=== PATIENT | male | born 1960 | race African-American/Black ===

== ENCOUNTER 2017-01-31 06:11 | Inpatient (IN) | payer OTHER ==
[~2017-01-31] VITALS: Ht 172.7 cm; Wt 68.9 kg
[~2017-01-31 06:11] MED LIST: DEXA4TAB PO; FOLI1TAB6 PO; MEGE40SU PO; TRAM50TA PO; XARE20TA PO
[2017-01-31] MEDS ORDERED: SODIUM CHLORID 0.9% 500 ML IV PRN (06:45)
[2017-01-31] MEDS ORDERED: POVIDONE IODINE 5% (ANTISEPSIS KIT) 4 APPLICATIONS EACH NARE PRN (06:45)
[2017-01-31] MEDS ORDERED: CHLORHEXIDINE GLUCONATE 2 % 1 PACK (2 CLOTHS) TOPICAL PRN (06:45)
[2017-01-31] MEDS ORDERED: INSULIN HUMAN REGULAR 1,000 UNITS/10 ML VIAL SQ PRN (06:45)
[2017-01-31] MEDS ORDERED: LACTATED RINGER'S 1000 ML IV PRN (06:45)
[2017-01-31] MEDS ORDERED: LACTATED RINGER'S 1000 ML INJ 1,000 ML IV SCH (06:45)
[2017-01-31] MEDS ORDERED: METOPROLOL TARTRATE 25 MG TAB PO PRN (06:45)
--- NOTE | 2017-01-31 07:16 | RADRPT ---
EXAM DATE/TIME: 01/31/2017 06:46 [facility] COMPARISON: No previous studies available for comparison. INDICATIONS : Evaluate for pneumonia, pneumothorax, or communicable disease. Pre op for left craniotomy. MEDICAL HISTORY : Carcinoma, lung. Carcinoma, brain. SURGICAL HISTORY : Infusaport. ENCOUNTER: Initial ACUITY: 1 day PAIN SCORE: 0/10 LOCATION: chest FINDINGS: A single view of the chest demonstrates a prominent area of parenchymal consolidation/mass in the rig ht upper lung.. The right lower lung is clear. The left lung is clear. There are no pleural effusions . The heart size is within normal limits. The hilar structures are within normal limits. There is a l eft-sided [id number]-n-Rduw in place. There is no evidence of pneumothorax. The bony structures are gross ly intact. There are no prior studies for comparison. CONCLUSION: Prominent area of parenchymal consolidation/mass in the right upper lung. Recommend noncontrast CT th orax for further evaluation. Kamran Downey MD on January 31, 2017 at 7:12 Board Certified Radiologist. This report was verified electronically.
[2017-01-31 07:22] LABS: AUTOMATED NEUTROPHIL # 19.6 TH/MM3 (1.8-7.7); BASOPHIL # 0.1 TH/MM3 (0-0.2); BASOPHIL % 0.5 % (0.0-2.0); EOSINOPHIL % 0.1 % (0.0-4.0); HEMATOCRIT 31.7 % (39.0-51.0); LYMPH % 4.4 % (9.0-44.0); MEAN CELL VOLUME 100.8 FL (80.0-100.0); MEAN CORPUSCULAR HEMOGLOBIN 33.1 PG (27.0-34.0); MEAN CORPUSCULAR HGB CONC 32.9 % (32.0-36.0); MONO % 6.8 % (0.0-8.0); NEUT % 88.2 % (16.0-70.0); PLATELET COUNT 243 TH/MM3 (150-450); RED BLOOD COUNT 3.15 MIL/MM3 (4.50-5.90); RED CELL DISTRIBUTION WIDTH 25.1 % (11.6-17.2); WHITE BLOOD COUNT 22.2 TH/MM3 (4.0-11.0)
[2017-01-31 07:25] LABS: HEMO FLAGS AUTO DIFF
[2017-01-31 07:33] LABS: APTT (PATIENT) 25.5 SEC (24.3-30.1)
[2017-01-31] MEDS ORDERED: THROMBIN (TOPICAL) 5,000 UNIT VIAL ONE ×2 (07:35→11:23)
[2017-01-31 07:36] LABS: ALT (GPT) 31 U/L (12-78); ANION GAP 9 MEQ/L (5-15); AST (GOT) 12 U/L (15-37); BICARBONATE 22.6 MEQ/L (21.0-32.0); BLOOD UREA NITROGEN 15 MG/DL (7-18); CHLORIDE 105 MEQ/L (98-107); GLOMERULAR FILTRATION RATE 134 ML/MIN (>89); POTASSIUM 3.6 MEQ/L (3.5-5.1); SODIUM (NA) 137 MEQ/L (136-145)
[2017-01-31] MEDS ORDERED: GELFOAM SIZE 100 ONE (07:36)
[2017-01-31] MEDS ORDERED: LIDOCAINE 1%/EPINEPHrine 1:100,000 SOLN 50 ML VIAL ONE (07:36)
[2017-01-31] MEDS ORDERED: GENTAMICIN SULFATE 80 MG/2 ML VIAL ONE (07:36)
[2017-01-31 07:38] LABS: ALKALINE PHOSPHATASE 60 U/L (45-117); TOTAL BILIRUBIN ADULT 0.2 MG/DL (0.2-1.0)
[2017-01-31 08:00] LABS: METAMYELOCYTES 2 % (0-1); MYELOCYTES 1 % (0-0); PLATELET ESTIMATE SMEAR NORMAL (NORMAL); PLATELET MORPHOLOGY NORMAL (NORMAL); POLYS (SEG NEUTROPHILS) 87 % (16-70); SCAN/DIFF FINAL DIFF MANUAL; WBC DIFF SAMPLE 100
[2017-01-31 08:01] LABS: OVALOCYTES 1+ (NORMAL); TEARDROP RBCS 1+ (NORMAL)
[2017-01-31] MEDS ORDERED: ACETAMINOPHEN 1000 MG/100 ML 100 ML IV ONE (08:36)
[2017-01-31] MEDS ORDERED: NITROGLYCERIN INJ 5 ML ONE (08:36)
[2017-01-31] MEDS ORDERED: HYDROmorphone HCL PF 2 MG/ML VIAL ONE (08:37)
[2017-01-31] MEDS ORDERED: GADODIAMIDE PF 287 MG/ML 5 ML VIAL (for RAD MRI) IVCONTRAST ONE (09:29)
[2017-01-31] MEDS: ceFAZolin 1,000 MG/NS 100 ML IV SCH ×4 (09:30→13:25)
--- NOTE | 2017-01-31 09:33 | RADRPT ---
EXAM DATE/TIME: 01/31/2017 08:31 [facility] COMPARISON: No previous studies available for comparison. INDICATIONS : Mass. CONTRAST: 15 cc Omniscan (gadodiamide) IV MEDICAL HISTORY : Metastatic, brain. Carcinoma, lung. SURGICAL HISTORY : None. ENCOUNTER: Initial ACUITY: 2 day PAIN SCORE: 0/10 LOCATION: head. TECHNIQUE: Multiplanar, multisequence MRI of the brain was performed both prior to and following the administrat ion of paramagnetic contrast. FINDINGS: Problem specific findings: The examination demonstrates a 2.1 x 3.2 x 3.0 cm ring enhancing mass in the left temporal cortex. Th ere is extensive vasogenic edema surrounding the lesion with mild mass effect. There is approximately 3-4 mm of left to right falcine shift. The examination also demonstrates a 1.0 x 1.1 x 1.2 cm mass i n the medial aspect of the right temporal cortex abutting the sylvian fissure. There is mild vasogeni c edema surrounding this lesion as well. There is no significant mass effect. Primary differential co nsideration for these abnormalities would be metastatic disease. MRI source data: There is mild mass effect on the lateral ventricular system on the left. There is 3-4 mm of left righ t falcine shift. No abnormal extra-axial fluid collections are seen. No findings to indicate acute co rtical infarction are present. The appearance of the posterior fossa is unremarkable. Note is made of fluid within the mastoid air cells bilaterally. The sinuses are clear. The orbits are intact. CONCLUSION: 1. There is a 2.1 x 3.2 x 3.0 cm enhancing mass in the left temporal lobe. There is extensive surroun ding vasogenic edema and mild mass effect. 2. There is a 1.0 x 1.1 x 1.2 cm enhancing mass in the medial right temporal lobe. There is mild luis a surrounding this lesion as well. 3. Findings would be consistent with metastatic disease to the brain. Lb Ta MD on January 31, 2017 at 9:25 Board Certified Radiologist. This report was verified electronically.
[2017-01-31] MEDS ORDERED: MIDAZOLAM HCL 2 MG/2 ML VIAL IV ONE (12:00)
[2017-01-31] MEDS ORDERED: SODIUM CHLOR 0.9% 250 ML INJ 250 ML IV ONE (12:00)
[2017-01-31] MEDS ORDERED: ONDANSETRON HCL 4 MG/2 ML VIAL IV PUSH ONE (12:00)
[2017-01-31] MEDS ORDERED: DEXAMETHASONE SOD PHOS 4 MG/ML VIAL IV ONE (12:00)
[2017-01-31] MEDS ORDERED: PROPOFOL 200 MG/20 ML AMP IV ONE (12:00)
[2017-01-31] MEDS ORDERED: ceFAZolin INJ 1,000 MG VIAL IV ONE (12:00)
[2017-01-31] MEDS ORDERED: SODIUM CHLORID 0.9% 500 ML INJ 500 ML IV ONE (12:00)
[2017-01-31] MEDS ORDERED: PHENYLEPH/NS 1000 MCG/10 ML SYR IV ONE (12:00)
[2017-01-31] MEDS ORDERED: PHENYLEPHRINE HCL 10 MG/ML VIAL IV ONE (12:00)
[2017-01-31] MEDS ORDERED: GLYCOPYRROLATE 1 MG/5 ML SYRINGE IV PUSH ONE (12:00)
[2017-01-31] MEDS ORDERED: LIDOCAINE HCL 1% PF 5 ML AMPULE OTHER ONE (12:00)
[2017-01-31] MEDS ORDERED: hydrALAZINE HCL 20 MG/ML VIAL IV ONE (12:00)
[2017-01-31] MEDS ORDERED: NORMOSOL R INJ 1,000 ML IV ONE (12:00)
[2017-01-31] MEDS ORDERED: ROCURONIUM INJ 50 MG/5 ML SYRINGE IV PUSH ONE (12:00)
[2017-01-31] MEDS ORDERED: DO NOT ADM ANY ANTICOAGULANT DRUGS PRN (13:59)
--- NOTE | 2017-01-31 14:04 | EKG ---
Date Performed: 01/31/2017 Time Performed: 07:06:51 PTAGE: 56 years EKG: SINUS BRADYCARDIA BORDERLINE ECG NO PREVIOUS TRACING DOCTOR: Kalyan Guardado Interpretating Date/Time 01/31/2017 14:01:02
--- NOTE | 2017-01-31 14:14 | PD.OP ---
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 Anesthesia: Gen. Surgeon: Alex Wu Band Scroll Saw Operator(s): Bernie Gerber Operation and Findings: Findings: Moderately firm nonhemorrhagic, noncystic neoplasm with moderate surrounding edema. Procedure in detail: The patient was brought into the operating room and general endotracheal anesthesia induced without difficulty. Lines were established by anesthesia MARY hose and sequential compression devices were in place Monique catheter was in place Appropriate timeout procedure was performed with all personal present and in agreement The patient was positioned in supine position on the 3080 table with all extremities appropriately padded. The head was placed in the 3-point fixation device and secured to the operating room table with the neck slightly flexed and the head mildly rotated towards the right side. The BrainLab system was registered with the laser facial registration system and landmarks verified. The BrainLab system was used to valentin the initial scalp flap and craniotomy opening, and was further used extensively during the procedure to guide the resection of the neoplasm. The hair overlying the scalp incision was shaved with clippers, and the operative site was sterilely prepped and draped. 1% Xylocaine with epinephrine was used for local infiltration over the incision site which was made at the left temporal region starting at the level of the zygoma and extending in front of the tragus up to the mid temporal region in a linear fashion. Dissection of the tissues down to the cranium was carried out with the Metzenbaum scissors and all major neurovascular structures were preserved. A small deep self-retaining retractor was placed. The syrup mixer helper was used to place a bur hole, and the bone flap was enlarged with a Kerrison rongeur The dura was opened in a cruciate fashion and the edges retracted with 4-0 Nurolon suture. There was mild brain edema noted upon opening the dura. The JINA port was used along with the BrainLab stereotactic system to target the central portion of the neoplasm, and the port was advanced to the anterior wall of the neoplasm. The neoplasm was circumferentially from the surrounding tissue with the Boron dissectors and the bipolar forceps with any bridging vessels coagulated with the bipolar forceps and incised with the microscissors. Any major vascular structures were carefully preserved. The JINA dissector was used to assist with the resection of the neoplasm, including any areas of residual neoplasm along the border of the tumor bed. Cottonoid patties were used as needed to maintain the resection plane surrounding the tumor. As the border of the neoplasm was circumferentially delineated, the central portion was further debulk with the JINA dissector. A gross total resection of the lesion was achieved. The tumor resection site was carefully examined and bleeding carefully controlled. There was no significant bleeding at the time of closure. The brain was soft and pulsatile at the time of closure The closure was performed with 4-0 Nurolon interrupted and running for the dura , with Duraseal and gelfoam over the craniectomy site, 2-0 Vicryl for the temporalis muscle fascia and galeal closure, And omid for the skin closure. A dressing of sterile Mastisol and Steri-Strips was placed The 3-point head fixation device was removed The patient was taken to recovery room in stable condition All counts were correct at the end of the case Estimated blood loss was 50 cc. Specimen of the neoplasm was sent to pathology for permanent section Alex Wu MD Jan 31, 2017 14:14
[2017-01-31] MEDS ORDERED: NALOXONE HCL 0.4 MG/ML AMP IV PUSH PRN (14:15)
[2017-01-31] MEDS ORDERED: HYDROmorphone HCL PF 1 MG/ML VIAL IV PUSH PRN (14:15)
[2017-01-31] MEDS ORDERED: ONDANSETRON HCL 4 MG/2 ML VIAL IV PUSH PRN (14:15)
[2017-01-31] MEDS ORDERED: ACETAMINOPHEN/HYDROcodone 325 MG/5 MG TAB PO PRN (14:15)
[2017-01-31] MEDS ORDERED: SODIUM CHLORIDE 0.9% FLUSH 5 ML FLUSH IVF PRN (14:15)
[2017-01-31] MEDS ORDERED: MORPHINE SULFATE 4 MG/ML INJ IV PUSH PRN (14:15)
[2017-01-31] MEDS: D5-NS + KCL 20 MEQ INJ 1,000 ML IV SCH (14:55)
[2017-01-31 16:00] VITALS: BP 118/71; PULSE 60; RESP 24; TEMP 98.2; O2SAT 100
[2017-01-31 18:00] VITALS: PULSE 63
[2017-01-31] MEDS: DEXAMETHASONE 4 MG TAB PO SCH ×2 (18:00→20:55)
[2017-01-31] MEDS: ACETAMINOPHEN/HYDROcodone 325 MG/10 MG TAB PO PRN (19:56)
[2017-01-31 20:00] VITALS: BP 156/82; PULSE 56; RESP 10; TEMP 98.7; O2SAT 100
[2017-01-31 20:30] VITALS: O2SAT 100
[2017-01-31] MEDS: DOCUSATE SODIUM 100 MG CAP PO SCH (20:55)
[2017-01-31] MEDS: SODIUM CHLORIDE 0.9% FLUSH 5 ML FLUSH IVF SCH (20:59)
[2017-01-31 22:00] VITALS: PULSE 56
[2017-02-01] VITALS (14 sets, daily range): BP systolic 127–140; BP diastolic 69–82; PULSE 58–83; RESP 16–28; TEMP 98.4–99.1; O2SAT 99–100
[2017-02-01] MEDS: D5-NS + KCL 20 MEQ INJ 1,000 ML IV SCH ×3 (00:14→20:15)
[2017-02-01 05:10] LABS: AUTOMATED NEUTROPHIL # 20.1 TH/MM3 (1.8-7.7); BASOPHIL % 0.1 % (0.0-2.0); HEMATOCRIT 30.6 % (39.0-51.0); LYMPH % 4.3 % (9.0-44.0); MEAN CELL VOLUME 100.8 FL (80.0-100.0); MEAN CORPUSCULAR HEMOGLOBIN 33.8 PG (27.0-34.0); MEAN CORPUSCULAR HGB CONC 33.6 % (32.0-36.0); MONO % 9.6 % (0.0-8.0); PLATELET COUNT 207 TH/MM3 (150-450); RED BLOOD COUNT 3.03 MIL/MM3 (4.50-5.90); RED CELL DISTRIBUTION WIDTH 25.6 % (11.6-17.2); WHITE BLOOD COUNT 23.4 TH/MM3 (4.0-11.0)
[2017-02-01 05:16] LABS: APTT (PATIENT) 26.9 SEC (24.3-30.1); PROTHROMBIN TIME - PATIENT 11.1 SEC (9.8-11.6)
[2017-02-01 05:25] LABS: HEMO FLAGS AUTO DIFF
[2017-02-01 05:31] LABS: BICARBONATE 23.5 MEQ/L (21.0-32.0); POTASSIUM 3.9 MEQ/L (3.5-5.1)
--- NOTE | 2017-02-01 05:51 | RADRPT ---
EXAM DATE/TIME: 02/01/2017 05:35 [facility] COMPARISON: MRI BRAIN W & W/O CONTRAST, January 31, 2017, 8:31. INDICATIONS : Post op. RADIATION DOSE: 32.99 CTDIvol (mGy) MEDICAL HISTORY : Lung cancer. Brain cancer. SURGICAL HISTORY : None. ENCOUNTER: Subsequent ACUITY: 1 day PAIN SCALE: Non-responsive LOCATION: cranial TECHNIQUE: Multiple contiguous axial images were obtained of the head. Using automated exposure control and adj ustment of the mA and/or kV according to patient size, radiation dose was kept as low as reasonably a chievable to obtain optimal diagnostic quality images. DICOM format image data is available electro nically for review and comparison. FINDINGS: CEREBRUM: There's been a left-sided craniotomy with some residual pneumocephalus. There is significant vasogeni c edema in left temporal lobe without evidence of residual mass lesion or hemorrhage. There is a 9 mm area of hemorrhage in the posterior right temporal lobe. No other focal lesions are identified POSTERIOR FOSSA: The cerebellum and brainstem are intact. The 4th ventricle is midline. The cerebellopontine angle i s unremarkable. EXTRACRANIAL: The visualized portion of the orbits is intact. SKULL: The calvaria is intact. No evidence of skull fracture. Fluid in the mastoid air cells CONCLUSION: Postoperative change the left temporal lobe left temporal craniotomy. Significant residual vasogenic edema and small amount of pneumocephalus. Small area of hemorrhage in the right posterior temporal lo be. Rick Rojas MD on February 01, 2017 at 5:47 Board Certified Radiologist. This report was verified electronically.
[2017-02-01 07:14] LABS: ACANTHOCYTES OCC (NORMAL); OVALOCYTES 1+ (NORMAL); PLATELET ESTIMATE SMEAR NORMAL (NORMAL); PLATELET MORPHOLOGY NORMAL (NORMAL); SCAN/DIFF AUTO DIFF CONFIRMED
[2017-02-01] MEDS: DEXAMETHASONE 4 MG TAB PO SCH ×5 (07:27→20:36)
[2017-02-01] MEDS: PANTOPRAZOLE SOD 40 MG DELAYED RELEASE TAB PO SCH (07:27)
[2017-02-01] MEDS: SODIUM CHLORIDE 0.9% FLUSH 5 ML FLUSH IVF SCH ×2 (07:27→20:14)
[2017-02-01] MEDS: DOCUSATE SODIUM 100 MG CAP PO SCH ×2 (07:27→20:15)
[2017-02-01] MEDS: ACETAMINOPHEN/HYDROcodone 325 MG/10 MG TAB PO PRN ×2 (07:27→18:13)
[2017-02-01] MEDS: FOLIC ACID 1 MG TAB PO SCH (07:27)
[2017-02-01] MEDS: MEGESTROL ACETATE SUSP 400 MG/10 ML CUP PO SCH (09:00)
--- NOTE | 2017-02-01 09:04 | HHI.NSPN ---
(Ming Rahman) History Chief Complaint: Unable to obtain due to patient's speech difficulty. (Ming Rahman) Interval History 01/31: The patient presented to [facility] to undergo a left temporal craniectomy for resection of a metastatic neoplasm. Post-operatively he was extubated and admitted to the [facility] unit for further care and monitoring. 02/01: When seen this morning the patient is asleep but awakens to voice. He readily interacts after that but has difficulty constructing sentences and finding words. He does not remember that he had surgery yesterday. Nursing reports that he is tolerating clear liquids. (Ming Rahman) System Review Comments Unable to obtain due to patient's speech difficulty. (Ming Rahman) Exam Results 01/30/17 01/30/17 01/31/17 01/31/17 02/01/17 02/01/17 05:59 17:59 05:59 17:59 05:59 17:59 Intake Total 2450 ml 1000 ml Output Total 1750 ml 700 ml 1750 ml Balance 700 ml 300 ml -1750 ml Intake IV Total 50 ml 1000 ml Other 2400 ml Output Urine Total 1700 ml 700 ml 1750 ml Estimated Blood Loss 50 ml # Bowel Movements 0 Vital Signs Date Time Temp Pulse Resp B/P (MAP) Pulse Ox O2 Delivery O2 Flow Rate FiO2 02/01/17 08:00 99.0 68 24 140/70 (93) 100 02/01/17 08:00 68 02/01/17 07:00 100 Room Air 02/01/17 06:00 67 02/01/17 04:00 99.1 60 16 129/69 (89) 99 02/01/17 04:00 60 02/01/17 02:00 60 02/01/17 00:00 98.6 58 17 136/72 (93) 100 02/01/17 00:00 58 01/31/17 22:00 56 01/31/17 20:30 100 21 01/31/17 20:00 98.7 56 10 156/82 (106) 100 Arterial Line 01/31/17 20:00 56 01/31/17 19:00 100 Room Air 01/31/17 18:00 63 01/31/17 16:00 98.2 60 24 118/71 (87) 100 01/31/17 16:00 60 01/31/17 15:15 60 12 126/71 (89) 100 Room Air 01/31/17 14:45 98.4 63 12 116/63 (80) 100 Room Air 01/31/17 14:30 62 14 128/74 (92) 100 Room Air 145/70 (95) 01/31/17 14:15 62 12 130/76 (94) 100 Simple Mask 6 151/71 (97) 01/31/17 14:00 61 12 134/81 (98) 100 Simple Mask 6 152/73 (99) 01/31/17 13:51 97.8 60 14 139/86 (103) 100 Simple Mask 6 155/76 (102) 01/31/17 06:54 97.9 58 20 122/81 (95) 100 (Ming Rahman) Physical Examination GENERAL: Asleep but awakens to voice, awake after that and readily interacts. Affect appears normal. No apparent distress. SKIN: Warm & dry, surgical incision left temporal lobe intact w/steri-strips, no drainage noted, mild swelling to area. HEENT: Left temporal lobe surgical incision w/mild swelling, NTTP. PERRLA, EOMI. MMM & pink, tongue midline to protrusion. MUSCULOSKELETAL: NANCE w/o difficulty, no evident deformity or clubbin. NEUROLOGICAL: Asleep but awakens to voice, awake & alert after that. Oriented to self and being in hospital but not which one, disoriented to time. Does not remember he had surgery yesterday. Speech essentially clear, has difficulty finding words and constructing sentences. Follows commands with difficulty, requires instruction and coaxing. CN II through XII appear grossly intact except for CN VIII w/decreased hearing. Sensation to light touch intact to all extremities. Motor strength is 5/5 to all major flexion & extension muscle groups. Fine motor not tested. No Bryan's bilaterally. No ankle clonus bilaterally. Both feet move upward with plantar response testing. (Ming Rahman) Lab, Micro, Other Results Recent Impressions Head CT 02/01/17 0600 Signed Impressions: Service Date/Time: Wednesday, February 01, 2017 05:35 - CONCLUSION: Postoperative change the left temporal lobe left temporal craniotomy. Significant residual vasogenic edema and small amount of pneumocephalus. Small area of hemorrhage in the right posterior temporal lobe. Rick Rojas MD Chest X-Ray 01/31/17 0628 Signed Impressions: Service Date/Time: Tuesday, January 31, 2017 06:46 - CONCLUSION: Prominent area of parenchymal consolidation/mass in the right upper lung. Recommend noncontrast CT thorax for further evaluation. Kamran Downey MD Brain MRI 01/31/17 0000 Signed Impressions: Service Date/Time: Tuesday, January 31, 2017 08:31 - CONCLUSION: 1. There is a 2.1 x 3.2 x 3.0 cm enhancing mass in the left temporal lobe. There is extensive surrounding vasogenic edema and mild mass effect. 2. There is a 1.0 x 1.1 x 1.2 cm enhancing mass in the medial right temporal lobe. There is mild edema surrounding this lesion as well. 3. Findings would be consistent with metastatic disease to the brain. Lb Ta MD Laboratory Tests Test 01/31/17 06:58 01/31/17 15:55 02/01/17 04:10 White Blood Count 22.2 TH/MM3 23.4 TH/MM3 Red Blood Count 3.15 MIL/MM3 3.03 MIL/MM3 Hemoglobin 10.4 GM/DL 10.3 GM/DL Hematocrit 31.7 % 30.6 % Mean Corpuscular Volume 100.8 FL 100.8 FL Mean Corpuscular Hemoglobin 33.1 PG 33.8 PG Mean Corpuscular Hemoglobin Concent 32.9 % 33.6 % Red Cell Distribution Width 25.1 % 25.6 % Platelet Count 243 TH/MM3 207 TH/MM3 Mean Platelet Volume 6.1 FL 6.4 FL Neutrophils (%) (Auto) 88.2 % 86.0 % Lymphocytes (%) (Auto) 4.4 % 4.3 % Monocytes (%) (Auto) 6.8 % 9.6 % Eosinophils (%) (Auto) 0.1 % 0.0 % Basophils (%) (Auto) 0.5 % 0.1 % Neutrophils # (Auto) 19.6 TH/MM3 20.1 TH/MM3 Lymphocytes # (Auto) 1.0 TH/MM3 1.0 TH/MM3 Monocytes # (Auto) 1.5 TH/MM3 2.2 TH/MM3 Eosinophils # (Auto) 0.0 TH/MM3 0.0 TH/MM3 Basophils # (Auto) 0.1 TH/MM3 0.0 TH/MM3 CBC Comment AUTO DIFF AUTO DIFF Differential Total Cells Counted 100 Neutrophils % (Manual) 87 % Lymphocytes % 6 % Monocytes % 4 % Neutrophils # (Manual) 20.0 TH/MM3 Metamyelocytes 2 % Myelocytes 1 % Differential Comment FINAL DIFF MANUAL AUTO DIFF CONFIRMED Platelet Estimate NORMAL NORMAL Platelet Morphology Comment NORMAL NORMAL Tear Drop Cells 1+ Ovalocytes 1+ 1+ Prothrombin Time 11.0 SEC 11.1 SEC Prothromb Time International Ratio 1.0 RATIO 1.0 RATIO Activated Partial Thromboplast Time 25.5 SEC 26.9 SEC Blood Urea Nitrogen 15 MG/DL 12 MG/DL Creatinine 0.74 MG/DL 0.67 MG/DL Random Glucose 90 MG/DL 88 MG/DL Total Protein 7.2 GM/DL Albumin 3.5 GM/DL Calcium Level 8.8 MG/DL 8.4 MG/DL Alkaline Phosphatase 60 U/L Aspartate Amino Transf (AST/SGOT) 12 U/L Alanine Aminotransferase (ALT/SGPT) 31 U/L Total Bilirubin 0.2 MG/DL Sodium Level 137 MEQ/L 139 MEQ/L Potassium Level 3.6 MEQ/L 3.9 MEQ/L Chloride Level 105 MEQ/L 105 MEQ/L Carbon Dioxide Level 22.6 MEQ/L 23.5 MEQ/L Anion Gap 9 MEQ/L 11 MEQ/L Estimat Glomerular Filtration Rate 134 ML/MIN 150 ML/MIN Nasal Screen MRSA (PCR) MRSA NOT DETECTED Acanthocytes OCC (Ming Rahman) Medical Decision Making Impression and Plan Impression: (1) 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 POD #1 () s/p: Left temporal craniectomy, resection of metastatic neoplasm Use of intraoperative frameless stereotactic navigation for operative planning and neoplasm resection. Plan: Frequent neuro checks. Stat CT brain for any worsening neuro status. Mobilise patient w/assistance. PT eval & tx. Will advance to regular diet since tolerating clears. Patient should be able to be transferred to a regular med/surg floor. (Ming Rahman) Attending Statement The exam, history, and the medical decision-making described in the above note were completed with the assistance of the mid-level provider. I reviewed and agree with the findings presented. I attest that I had a [id number] encounter with the patient on the same day, and personally performed and documented my assessment and findings in the medical record. Respirations clear to auscultation Cardiac regular Abdomen soft Awake and alert Speech actually seems a little better compared to preoperative. He is able to converse with short sentences with mild dysarthria. Continued word finding deficits. Moves all extremities well Incision dry and intact CT scan of head 02/01/17 satisfactory Discussed with patient Transfer to floor (Alex Wu MD) Ming Rahman Feb 01, 2017 09:04 Alex Wu MD Feb 01, 2017 20:14
[2017-02-02] VITALS (9 sets, daily range): BP systolic 117–121; BP diastolic 72–82; PULSE 65–94; RESP 13–20; TEMP 98.4–98.9; O2SAT 96–99
[2017-02-02] MEDS: SODIUM CHLORIDE 0.9% FLUSH 5 ML FLUSH IVF SCH (09:00)
--- NOTE | 2017-02-02 09:10 | HHI.NSPN ---
History Chief Complaint: No expressed complaints when asked. Interval History 01/31: The patient presented to [facility] to undergo a left temporal craniectomy for resection of a metastatic neoplasm. Post-operatively he was extubated and admitted to the [facility] unit for further care and monitoring. 02/01: When seen this morning the patient is asleep but awakens to voice. He readily interacts after that but has difficulty constructing sentences and finding words. He does not remember that he had surgery yesterday. Nursing reports that he is tolerating clear liquids. 02/02: This morning the patient is awake and alert. When asked he did not express any complaints but was fixated that he was told by Dr Wu yesterday he was going home today. A review of Dr Wu's attestation to yesterday's note only mentioned his being transferred to a regular floor but the patient was not able to understand/accept that when he was told. Physical Therapy evaluated the patient and felt that he would benefit from further therapy at rehab. He does have some difficulty expressing himself and finding the word he wants. System Review Comments No expressed complaints when asked but patient fixated that he was told yesterday evening by Dr Wu he was being discharged today. Exam Results 01/31/17 01/31/17 02/01/17 02/01/17 02/02/17 02/02/17 06:00 18:00 06:00 18:00 06:00 18:00 Intake Total 2450 ml 1000 ml 1725 ml 240 ml Output Total 2450 ml 1750 ml 220 ml 1850 ml Balance 0 ml -750 ml 1505 ml -1610 ml Intake Oral 725 ml 240 ml IV Total 50 ml 1000 ml 1000 ml Other 2400 ml Output Urine Total 2400 ml 1750 ml 220 ml 1850 ml Estimated Blood Loss 50 ml # Bowel Movements 0 0 0 Vital Signs Date Time Temp Pulse Resp B/P (MAP) Pulse Ox O2 Delivery O2 Flow Rate FiO2 02/02/17 08:26 99 02/02/17 06:00 67 02/02/17 04:00 98.9 76 13 121/73 (89) 99 02/02/17 04:00 76 02/02/17 02:00 70 02/02/17 00:00 98.8 67 18 119/75 (90) 98 02/02/17 00:00 67 02/01/17 22:00 65 02/01/17 20:30 100 21 02/01/17 20:00 98.9 71 27 127/72 (90) 99 02/01/17 20:00 71 02/01/17 19:13 14 02/01/17 19:00 100 Room Air 02/01/17 18:00 75 02/01/17 16:00 98.5 83 28 131/82 (98) 100 02/01/17 16:00 68 02/01/17 14:00 69 02/01/17 12:00 68 02/01/17 12:00 98.4 68 20 133/76 (95) 100 02/01/17 10:00 68 02/01/17 09:09 100 21 02/01/17 08:00 99.0 68 24 140/70 (93) 100 02/01/17 08:00 68 02/01/17 07:00 100 Room Air 02/01/17 06:00 67 02/01/17 04:00 99.1 60 16 129/69 (89) 99 02/01/17 04:00 60 02/01/17 02:00 60 02/01/17 00:00 98.6 58 17 136/72 (93) 100 02/01/17 00:00 58 01/31/17 22:00 56 01/31/17 20:30 100 21 01/31/17 20:00 98.7 56 10 156/82 (106) 100 Arterial Line 01/31/17 20:00 56 01/31/17 19:00 100 Room Air 01/31/17 18:00 63 01/31/17 16:00 98.2 60 24 118/71 (87) 100 01/31/17 16:00 60 01/31/17 15:15 60 12 126/71 (89) 100 Room Air 01/31/17 14:45 98.4 63 12 116/63 (80) 100 Room Air 01/31/17 14:30 62 14 128/74 (92) 100 Room Air 145/70 (95) 01/31/17 14:15 62 12 130/76 (94) 100 Simple Mask 6 151/71 (97) 01/31/17 14:00 61 12 134/81 (98) 100 Simple Mask 6 152/73 (99) 01/31/17 13:51 97.8 60 14 139/86 (103) 100 Simple Mask 6 155/76 (102) 01/31/17 06:54 97.9 58 20 122/81 (95) 100 Physical Examination GENERAL: Awake & alert, readily interacts. Affect slightly anxious. He is fixated that he was told yesterday by Dr Wu he was going home today. No apparent distress. SKIN: Warm & dry, surgical incision left temporal lobe intact w/steri-strips, no drainage noted, minimal swelling to area. HEENT: Left temporal lobe surgical incision w/minimal swelling, NTTP. PERRLA, EOMI. MMM & pink, tongue midline to protrusion. MUSCULOSKELETAL: NANCE w/o difficulty, no evident deformity or clubbing. NEUROLOGICAL: Awake & alert. Oriented to self only. Responded that he was here when asked where he was and when asked if this was a hospital he kept on with being here. He initially was unable to state a year but eventually said 2010 and that it was February. When asked the next holiday he said Ying. He was not able to state who the president was. When asked if Obama he said no and when asked if Trump he said Obama. Does not remember he had surgery. Speech essentially clear, has difficulty finding words and constructing sentences. Follows commands and requires some instruction and coaxing. CN II through XII appear grossly intact except for CN VIII w/decreased hearing. Sensation to light touch intact to all extremities. Motor strength is 5/5 to all major flexion & extension muscle groups. Lab, Micro, Other Results Recent Impressions Head CT 02/01/17 0600 Signed Impressions: Service Date/Time: Wednesday, February 01, 2017 05:35 - CONCLUSION: Postoperative change the left temporal lobe left temporal craniotomy. Significant residual vasogenic edema and small amount of pneumocephalus. Small area of hemorrhage in the right posterior temporal lobe. Rick Rojas MD Chest X-Ray 01/31/17 0628 Signed Impressions: Service Date/Time: Tuesday, January 31, 2017 06:46 - CONCLUSION: Prominent area of parenchymal consolidation/mass in the right upper lung. Recommend noncontrast CT thorax for further evaluation. Kamran Downey MD Brain MRI 01/31/17 0000 Signed Impressions: Service Date/Time: Tuesday, January 31, 2017 08:31 - CONCLUSION: 1. There is a 2.1 x 3.2 x 3.0 cm enhancing mass in the left temporal lobe. There is extensive surrounding vasogenic edema and mild mass effect. 2. There is a 1.0 x 1.1 x 1.2 cm enhancing mass in the medial right temporal lobe. There is mild edema surrounding this lesion as well. 3. Findings would be consistent with metastatic disease to the brain. Lb Ta MD Laboratory Tests Test 01/31/17 06:58 01/31/17 15:55 02/01/17 04:10 White Blood Count 22.2 TH/MM3 23.4 TH/MM3 Red Blood Count 3.15 MIL/MM3 3.03 MIL/MM3 Hemoglobin 10.4 GM/DL 10.3 GM/DL Hematocrit 31.7 % 30.6 % Mean Corpuscular Volume 100.8 FL 100.8 FL Mean Corpuscular Hemoglobin 33.1 PG 33.8 PG Mean Corpuscular Hemoglobin Concent 32.9 % 33.6 % Red Cell Distribution Width 25.1 % 25.6 % Platelet Count 243 TH/MM3 207 TH/MM3 Mean Platelet Volume 6.1 FL 6.4 FL Neutrophils (%) (Auto) 88.2 % 86.0 % Lymphocytes (%) (Auto) 4.4 % 4.3 % Monocytes (%) (Auto) 6.8 % 9.6 % Eosinophils (%) (Auto) 0.1 % 0.0 % Basophils (%) (Auto) 0.5 % 0.1 % Neutrophils # (Auto) 19.6 TH/MM3 20.1 TH/MM3 Lymphocytes # (Auto) 1.0 TH/MM3 1.0 TH/MM3 Monocytes # (Auto) 1.5 TH/MM3 2.2 TH/MM3 Eosinophils # (Auto) 0.0 TH/MM3 0.0 TH/MM3 Basophils # (Auto) 0.1 TH/MM3 0.0 TH/MM3 CBC Comment AUTO DIFF AUTO DIFF Differential Total Cells Counted 100 Neutrophils % (Manual) 87 % Lymphocytes % 6 % Monocytes % 4 % Neutrophils # (Manual) 20.0 TH/MM3 Metamyelocytes 2 % Myelocytes 1 % Differential Comment FINAL DIFF MANUAL AUTO DIFF CONFIRMED Platelet Estimate NORMAL NORMAL Platelet Morphology Comment NORMAL NORMAL Tear Drop Cells 1+ Ovalocytes 1+ 1+ Prothrombin Time 11.0 SEC 11.1 SEC Prothromb Time International Ratio 1.0 RATIO 1.0 RATIO Activated Partial Thromboplast Time 25.5 SEC 26.9 SEC Blood Urea Nitrogen 15 MG/DL 12 MG/DL Creatinine 0.74 MG/DL 0.67 MG/DL Random Glucose 90 MG/DL 88 MG/DL Total Protein 7.2 GM/DL Albumin 3.5 GM/DL Calcium Level 8.8 MG/DL 8.4 MG/DL Alkaline Phosphatase 60 U/L Aspartate Amino Transf (AST/SGOT) 12 U/L Alanine Aminotransferase (ALT/SGPT) 31 U/L Total Bilirubin 0.2 MG/DL Sodium Level 137 MEQ/L 139 MEQ/L Potassium Level 3.6 MEQ/L 3.9 MEQ/L Chloride Level 105 MEQ/L 105 MEQ/L Carbon Dioxide Level 22.6 MEQ/L 23.5 MEQ/L Anion Gap 9 MEQ/L 11 MEQ/L Estimat Glomerular Filtration Rate 134 ML/MIN 150 ML/MIN Nasal Screen MRSA (PCR) MRSA NOT DETECTED Acanthocytes OCC Medical Decision Making Impression and Plan Impression: (1) 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 Neurologically stable, still with confusion and expressive aphasia. Fixated that he is to be discharged today. Physical Therapy recommends further therapy at rehab due to unsteady gait. POD #2 () s/p: Left temporal craniectomy, resection of metastatic neoplasm Use of intraoperative frameless stereotactic navigation for operative planning and neoplasm resection. Plan: Frequent neuro checks. Stat CT brain for any worsening neuro status. Mobilise patient w/assistance. PT eval & tx. D/C Monique catheter. OT eval & tx. Transfer to a regular med/surg floor. ADDENDUM at 1014: Physical Therapy ambulated patient and felt that he was able to be safely discharged without any skilled needs. Discussed with Dr uW who feels that patient is able to be discharged home at this time. I spoke with the patient's sister who is in agreement with the patient being discharged today. I then spoke with the patient and told him he is going to be discharged home today. After some discussion he has agreed to stay until the paperwork is completed about lunch time. Ming Jiménez Feb 02, 2017 09:10
[2017-02-02] MEDS: DOCUSATE SODIUM 100 MG CAP PO SCH (09:30)
[2017-02-02] MEDS: PANTOPRAZOLE SOD 40 MG DELAYED RELEASE TAB PO SCH (09:30)
[2017-02-02] MEDS: DEXAMETHASONE 4 MG TAB PO SCH (09:30)
[2017-02-02] MEDS: FOLIC ACID 1 MG TAB PO SCH (09:30)
[2017-02-02] MEDS: MEGESTROL ACETATE SUSP 400 MG/10 ML CUP PO SCH (10:19)
--- NOTE | 2017-02-02 11:56 | HHI.DCPOC ---
Discharge Care Plan Your Health Problems Are: Incision/Drains Difficulty with Speech Goals to Promote Your Health * To prevent worsening of your condition and complications * To maintain your health at the optimal level No lifting, bending, pushing, pulling or other strenuous activity. Leave the steri-strips on. If they do not fall off after a week you may gently remove them. No showering until the surgical incision is totally healed. You may take acetaminophen as needed for any headache/pain according to the package directions. You may resume your Xarelto on Monday. Follow up in the office in 2 weeks for a wound check. Directions to Meet Your Goals Take your medications as prescribed Follow your dietary instruction Follow activity as directed No lifting, bending, pushing, pulling or other strenuous activity. Leave the steri-strips on. If they do not fall off after a week you may gently remove them. No showering until the surgical incision is totally healed. You may take acetaminophen as needed for any headache/pain according to the package directions. You may resume your Xarelto on Monday. Follow up in the office in 2 weeks for a wound check. Keep your appointments as scheduled Take your immunizations and boosters as scheduled If your symptoms worsen call your PCP, if no PCP go to Urgent Care Center or Emergency Room Smoking is Dangerous to Your Health. Avoid second hand smoke Call the 24-hour hour crisis hotline for domestic abuse at Ming Rahman Feb 02, 2017 11:56
--- NOTE | 2017-02-02 12:01 | HHI.DS ---
Discharge Summary Admission Date Jan 31, 2017 at 06:11 Discharge Date: Feb 02, 2017 Admitting Diagnosis (1) Lung cancer metastatic to brain Diagnosis: Principal ICD Code: C34.90 - Malignant neoplasm of unspecified part of unspecified bronchus or lung; C79.31 - Secondary malignant neoplasm of brain Procedures : Left temporal craniectomy, resection of metastatic neoplasm Use of intraoperative frameless stereotactic navigation for operative planning and neoplasm resection. CBC/BMP: 02/01/17 0410 02/01/17 0410 Significant Findings Laboratory Tests Test 01/31/17 06:58 01/31/17 15:55 02/01/17 04:10 White Blood Count 22.2 TH/MM3 (4.0-11.0) 23.4 TH/MM3 (4.0-11.0) Red Blood Count 3.15 MIL/MM3 (4.50-5.90) 3.03 MIL/MM3 (4.50-5.90) Hemoglobin 10.4 GM/DL (13.0-17.0) 10.3 GM/DL (13.0-17.0) Hematocrit 31.7 % (39.0-51.0) 30.6 % (39.0-51.0) Mean Corpuscular Volume 100.8 FL (80.0-100.0) 100.8 FL (80.0-100.0) Red Cell Distribution Width 25.1 % (11.6-17.2) 25.6 % (11.6-17.2) Mean Platelet Volume 6.1 FL (7.0-11.0) 6.4 FL (7.0-11.0) Neutrophils (%) (Auto) 88.2 % (16.0-70.0) 86.0 % (16.0-70.0) Lymphocytes (%) (Auto) 4.4 % (9.0-44.0) 4.3 % (9.0-44.0) Neutrophils # (Auto) 19.6 TH/MM3 (1.8-7.7) 20.1 TH/MM3 (1.8-7.7) Monocytes # (Auto) 1.5 TH/MM3 (0-0.9) 2.2 TH/MM3 (0-0.9) Neutrophils % (Manual) 87 % (16-70) Lymphocytes % 6 % (9-44) Neutrophils # (Manual) 20.0 TH/MM3 (1.8-7.7) Metamyelocytes 2 % (0-1) Myelocytes 1 % (0-0) Tear Drop Cells 1+ (NORMAL) Ovalocytes 1+ (NORMAL) 1+ (NORMAL) Aspartate Amino Transf (AST/SGOT) 12 U/L (15-37) Monocytes (%) (Auto) 9.6 % (0.0-8.0) Calcium Level 8.4 MG/DL (8.5-10.1) Hospital Course 01/31: The patient presented to [facility] to undergo a left temporal craniectomy for resection of a metastatic neoplasm. Post-operatively he was extubated and admitted to the [facility] unit for further care and monitoring. 02/01: When seen this morning the patient is asleep but awakens to voice. He readily interacts after that but has difficulty constructing sentences and finding words. He does not remember that he had surgery yesterday. Nursing reports that he is tolerating clear liquids. 02/02: This morning the patient is awake and alert. When asked he did not express any complaints but was fixated that he was told by Dr Wu yesterday he was going home today. A review of Dr Wu's attestation to yesterday's note only mentioned his being transferred to a regular floor but the patient was not able to understand/accept that when he was told. Physical Therapy evaluated the patient and felt that he would benefit from further therapy at rehab. He does have some difficulty expressing himself and finding the word he wants. Pt Condition on Discharge: Good Discharge Disposition: Discharge Home Discharge Instructions DIET: Follow Instructions for: As Tolerated, No Restrictions ACTIVITIES You can perform: Full Weight Bearing Activities to Avoid: Contact Sports, Lifting/Bending, Strenuous Activity, Bathing, Shower Additional Information Leave the steri-strips on. If they do not fall off after a week you may gently remove them. No showering until the surgical incision is totally healed. You may take acetaminophen as needed for any headache/pain according to the package directions. You may resume your Xarelto on Monday. Follow up in the office in 2 weeks for a wound check. Ming Rahman Feb 02, 2017 12:01
--- NOTE | 2017-02-02 14:16 | OTSOAPIP ---
02/02/17- ATTEMPTED TO SEE PATIENT FOR OT EVALUATION HOWEVER PATIENT HAS ALREADY BEEN DISCHARGED HOME WITH FAMILY WITH NO NEEDS PER CASE MANAGEMENT REPORT. Therapist: Lisa Morales OT Signature on file
== END 2017-02-02 12:31 | disposition home or self-care (01) | DRG 25 ==
LOC: HSDI 06:11 → N03A 15:43
PROVIDERS: ADMIT Neurological Surgery; ATTEND Neurological Surgery
PROC: 8E09XBG Computer Assisted Procedure of Head and Neck Region, With Computerized Tomography (ICD-10-PCS; 2017-01-31)
PROC: 00B00ZZ Excision of Brain, Open Approach (ICD-10-PCS; principal; 2017-01-31 09:13)
DX: C79.31 Secondary malignant neoplasm of brain (principal); G93.6 Cerebral edema; C34.90 Malignant neoplasm of unspecified part of unspecified bronchus or lung; R47.1 Dysarthria and anarthria; R26.81 Unsteadiness on feet; F17.210 Nicotine dependence, cigarettes, uncomplicated
CPT/HCPCS: 70450; 70553; 71010; 80048; 80053; 85007; 85025; 85027; 85610; 85730; 86850; 86900; 86901; 87641; 88305; 88307; 88312; 93005; 94150; A9579; C1713; J0131; J0360; J0690; J1100; J1170; J1580; J2250; J2370; J2405; J3010; J3480; J7040; J7050; J7120; J8540

== ENCOUNTER 2017-02-28 12:54 | Emergency (ER) | payer OTHER ==
[~2017-02-28 12:54] MED LIST changes: -XARE20TA PO
[2017-02-28 12:55] VITALS: BP 144/91; PULSE 82; RESP 16; TEMP 99; O2SAT 98
--- NOTE | 2017-02-28 13:36 | PD ---
HPI Chief Complaint: Wound/Suture/Staple Re-Check Time Seen by Provider: 13:26 Travel History International Travel<30 days: No Contact w/Intl Traveler<30days: No Traveled to known affect area: No History of Present Illness HPI 56-year-old male presents to the ED for wound evaluation and staple removal. He states that he had brain surgery about a month ago. He has not followed up with the surgeon, Dr. Wu. He has no somatic complaints. He requests that the omid be removed from his wound. PFSH Past Medical History Cancer: Yes (LUNG AND BRAIN CANCER) Cardiovascular Problems: No Chemotherapy: Yes Diabetes: No Endocrine: No Genitourinary: No Hepatitis: No Hiatal Hernia: No Immune Disorder: No Musculoskeletal: No Neurologic: No Psychiatric: No Reproductive: No Respiratory: Yes Radiation Therapy: Yes Thyroid Disease: No Past Surgical History AICD: No Body Medical Devices: PORT LEFT CHEST Joint Replacement: No Pacemaker: No Social History Tobacco Use: No Substance Use: No Allergies-Medications (Allergen,Severity, Reaction): Coded Allergies: No Known Allergies (Unverified , 01/31/17) Reported Meds & Prescriptions Reported Meds & Active Scripts Active Reported Tramadol (Tramadol HCl) 50 Mg Tab 50 Mg PO Q4H PRN Megestrol Liq (Megestrol Acetate) 40 Mg/Ml Susp 400 Mg PO DAILY Folic Acid 1 Mg Tablet 1 Mg PO DAILY Dexamethasone 4 Mg Tab 4 Mg PO QID Review of Systems Except as stated in HPI: all other systems reviewed are Neg Physical Exam Narrative GENERAL: Well-nourished, well-developed male in no acute distress. SKIN: Focused skin assessment warm/dry. Well-healed surgical wound in the left preauricular area. Omid in place, no signs of infection. HEAD: Normocephalic. EYES: No scleral icterus. No injection or drainage. NECK: Supple, trachea midline. No JVD or lymphadenopathy. CARDIOVASCULAR: Regular rate and rhythm without murmurs, gallops, or rubs. RESPIRATORY: Breath sounds equal bilaterally. No accessory muscle use. GASTROINTESTINAL: Abdomen soft, non-tender, nondistended. MUSCULOSKELETAL: No cyanosis, or edema. BACK: Nontender without obvious deformity. No CVA tenderness. Data Data Last Documented VS Vital Signs Date Time Temp Pulse Resp B/P (MAP) Pulse Ox O2 Delivery O2 Flow Rate FiO2 12/12/17 12:55 99.0 82 16 144/91 (108) 98 MDM Medical Decision Making Medical Screen Exam Complete: Yes Emergency Medical Condition: Yes Differential Diagnosis Wound check versus wound infection versus staple removal versus other Narrative Course 56-year-old male presents to the ED for stable removal. Per record review he had resection of metastatic lung cancer in the brain by Dr. Wu about a month ago. He has not followed up. Vitals reviewed. Physical exam reveals a well- healed incision in the preauricular area with omid in place. No signs of infection. Omid are removed without incident. Patient is instructed to follow-up with Dr. Wu to discuss the results of his surgery. He is stable and discharged home. Diagnosis Primary Impression: Encounter for removal of omid Referrals: Alex Wu MD Additional Instructions: Follow-up with Dr. Wu today or tomorrow morning as discussed. Return to the ED for any urgent or emergent medical condition. Disposition: 01 DISCHARGE HOME Condition: Stable Silvia Mills Feb 28, 2017 13:36
== END 2017-02-28 13:45 | disposition home or self-care (01) ==
LOC: NEPK 12:54
DX: Z48.02 Encounter for removal of sutures (principal); Z79.899 Other long term (current) drug therapy
CPT/HCPCS: 99281

== ENCOUNTER 2017-05-20 04:33 | Inpatient (IN) | payer OTHER ==
[2017-05-20] VITALS (9 sets, daily range): BP systolic 110–128; BP diastolic 68–76; PULSE 77–103; RESP 14–18; TEMP 97.9–100.4; O2SAT 24–96
--- NOTE | 2017-05-20 08:28 | HHI.HP ---
HPI Service Critical Care Medicine Primary Care Physician Unknown Admission Diagnosis Brain mets, hemorrhage Diagnosis: Chief Complaint: Headache Travel History International Travel<30 Days: No Contact w/Intl Traveler <30 Da: No Traveled to Known Affected Are: No History of Present Illness 56 y/o right handed man s/p resection left temporal lobe metastatic brain lesion from right upper lobe primary in January 2017. Presents to [facility] for urgent evaluation. New brain met right side with surrounding hemorrhage by report. Patient is on xarelto. No seizures. Transferred to [facility] where I have met him on his arrival to the [facility]. Review of Systems ROS Headache. Past Family Social History Allergies: Coded Allergies: No Known Allergies (Unverified , 01/31/17) Past Medical History Keppra Xarelto Physical Exam Physical Exam Gen: Quiet, calm Head: Atraumatic. Neck: Supple, airway widely patent. Lungs: Rhonchi right side, left clear. Heart: NL S1S2, RRR, No JVD. Abdomen: Soft, no guarding. No tenderness. Extremities: Warm, well perfused. Ankle bracelet right ankle. Neuro: Moves 4 limbs to command. Hand grasps 5/5 james. EOMs intact. Speech clear but difficulty finding words. Tongue midline, shoulder shrug symmetrical. Caprini VTE Risk Assessment Caprini VTE Risk Assessment: Mod/High Risk (score >= 2) VTE Pharm Contraindication: Hemorrhage Caprini Risk Assessment Model Point Value = 1 Point Value = 2 Point Value = 3 Point Value = 5 Age 41-60 Minor surgery BMI > 25 kg/m2 Swollen legs Varicose veins or History of unexplained or recurrent spontaneous Oral contraceptives or hormone replacement Sepsis (< 1 month) Serious lung disease, including pneumonia (< 1 month) Abnormal pulmonary function Acute myocardial infarction Congestive heart failure (< 1 month) History of inflammatory bowel disease Medical patient at bed rest Age 61-74 Arthroscopic surgery Major open surgery (> 45 min) Laparoscopic surgery (> 45 min) Malignancy Confined to bed (> 72 hours) Immobilizing plaster cast Central venous access Age >= 75 History of VTE Family history of VTE Factor V Leiden Prothrombin [id number] Lupus anticoagulant Anticardiolipin antibodies Elevated serum homocysteine Heparin-induced thrombocytopenia Other congenital or acquired thrombophilia Stroke (< 1 month) Elective arthroplasty Hip, pelvis, or leg fracture Acute spinal cord injury (< 1 month) Prophylaxis Regimen Total Risk Factor Score Risk Level Prophylaxis Regimen 0-1 Low Early ambulation 2 Moderate Order ONE of the following: *Sequential Compression Device (SCD) *Heparin 5000 units SQ BID 3-4 Higher Order ONE of the following medications: *Heparin 5000 units SQ TID *Enoxaparin/Lovenox 40 mg SQ daily (WT < 150 kg, CrCl > 30 mL/min) *Enoxaparin/Lovenox 30 mg SQ daily (WT < 150 kg, CrCl > 10-29 mL/min) *Enoxaparin/Lovenox 30 mg SQ BID (WT < 150 kg, CrCl > 30 mL/min) AND/OR *Sequential Compression Device (SCD) 5 or more Highest Order ONE of the following medications: *Heparin 5000 units SQ TID (Preferred with Epidurals) *Enoxaparin/Lovenox 40 mg SQ daily (WT < 150 kg, CrCl > 30 mL/min) *Enoxaparin/Lovenox 30 mg SQ daily (WT < 150 kg, CrCl > 10-29 mL/min) *Enoxaparin/Lovenox 30 mg SQ BID (WT < 150 kg, CrCl > 30 mL/min) AND *Sequential Compression Device (SCD) Assessment and Plan Assessment and Plan Assessment: 1. Intracranial hemorrhage. 2. Lung cancer metastatic to brain. Plan: 1. CT Head. 2. Maintain SBP < 140. 3. HOB up. 4. Pepcid. 5. SCDs. 6. Neurosurgical evaluation. 7. Coags. Overall impression: Critically ill with new brain hemorrhage surrounding right hemispheric metastases. Critical care [address] MD May 20, 2017 08:28
[2017-05-20] MEDS ORDERED: MISCELLANEOUS NURSING INFORMATION XX SCH (09:00)
[2017-05-20] MEDS ORDERED: ONDANSETRON HCL 4 MG/2 ML VIAL IV PUSH PRN (09:00)
[2017-05-20] MEDS ORDERED: ACETAMINOPHEN 325 MG TAB PO PRN (09:00)
[2017-05-20] MEDS ORDERED: CHLORHEXIDINE GLUCONATE 2 % 1 PACK (2 CLOTHS) TOP PRN (09:00)
[2017-05-20] MEDS: FAMOTIDINE 20 MG/2 ML VIAL IV PUSH SCH ×2 (09:00→21:26)
[2017-05-20] MEDS ORDERED: BISACODYL 10 MG SUPP RECTAL PRN (09:00)
[2017-05-20] MEDS: SODIUM CHLOR 0.9% 1000 ML INJ 1,000 ML IV SCH ×2 (09:00→21:37)
[2017-05-20] MEDS: levETIRAcetam INJ 500 MG in SODIUM CHLORIDE 0.9% INJ 100 ML IV SCH ×2 (09:00→21:00)
[2017-05-20] MEDS ORDERED: SENNOSIDES 8.6 MG TAB PO PRN (09:00)
[2017-05-20] MEDS ORDERED: LACTULOSE SYRUP 20 GM/30 ML CUP PO PRN (09:00)
[2017-05-20] MEDS ORDERED: MAGNESIUM HYDROXIDE SUSP 30 ML CUP PO PRN (09:00)
--- NOTE | 2017-05-20 09:54 | RADRPT ---
EXAM DATE/TIME: 05/20/2017 09:29 [place] COMPARISON: No previous studies available for comparison. INDICATIONS : Possible bleed. Metastaic brain lesion RADIATION DOSE: 56.35 CTDIvol (mGy) MEDICAL HISTORY : Metastatic, brain. SURGICAL HISTORY : Craniotomy. ENCOUNTER: Initial ACUITY: 1 day PAIN SCALE: 2/10 LOCATION: cranial TECHNIQUE: Multiple contiguous axial images were obtained of the head. Using automated exposure control and adj ustment of the mA and/or kV according to patient size, radiation dose was kept as low as reasonably a chievable to obtain optimal diagnostic quality images. DICOM format image data is available electro nically for review and comparison. FINDINGS: CEREBRUM: The patient had a left-sided temporal craniotomy with a residual area of encephalomalacia measuring 2 .4 x 2.9 cm across. The encephalomalacia extends through the gomez matter and into the craniotomy defe ct. Outside the craniotomy defect is 1.4 x 2 20 cm collection of fluid possible CSF fluid. There is d iffuse hypodensity throughout the white matter tracts bilaterally. There is a benign-appearing calcif ication in the right temporal lobe unchanged. The ventricular system does appear to be more dilated t than it was in January POSTERIOR FOSSA: The cerebellum and brainstem are intact. The 4th ventricle is midline. The cerebellopontine angle i s unremarkable. EXTRACRANIAL: There is fluid throughout the left mastoid air cells SKULL: No evidence of skull fracture. CONCLUSION: Left temporal encephalomalacia defect with significant fluid herniating out of the craniotomy defect. No evidence of acute hemorrhage or acute process. Rick Rojas MD on May 20, 2017 at 9:50 Board Certified Radiologist. This report was verified electronically.
--- NOTE | 2017-05-20 11:16 | PD.CONS ---
[facility] Service Neurosurgery Consult Requested By Dr aLne Reason for Consult Suspected brain tumor Primary Care Physician Unknown History of Present Illness This is 56 y/o right handed man s/p resection left temporal lobe metastatic brain lesion from right upper lobe primary in January 2017. He has undergone palliative whole brain radiation therapy is on Keytruda on May 2016. On July he received additional radiosurgery with 18 GY to a lesion on the right temporal lobe, in a single fracture. On July 21, 2016 he received with additional 30 GY to the left temporal lobe lesion. His prior CT of the chest has shown a cavitary mass on the right pulmonary apex, as well as evidence of pulmonary emboli. He was anticoagulated with Xarelto for his PE. He has a history of treatment with carboplatin/ALI MTA chemotherapy. The carboplatin was stopped on December 2016 due to hearing loss. Mr Wilson presents to [facility] for urgent evaluation. He suffered altered mental status. The patient is unable to provide much history. He underwent a scan at [facility] which was reported as having a new brain metastases in the right side with surrounding hemorrhage. Patient is on xarelto. No seizures. No tongue biting. No tonic-clonic movement seen. No incontinence of stool or urine. He was moving all 4 extremities. Transferred to [facility] and a neurosurgical consultation was requested Review of Systems Constitutional: DENIES: Diaphoretic episodes, Fatigue, Fever, Weight gain, Weight loss, Chills, Dizziness, Change in appetite, Night Sweats Eyes: DENIES: Blurred vision, Diplopia, Eye inflammation, Eye pain, Vision loss , Photosensitivity, Double Vision Ears, nose, mouth, throat: COMPLAINS OF: Hearing loss, DENIES: Tinnitus, Vertigo, Nasal discharge, Oral lesions, Throat pain, Hoarseness, Ear Pain, Running Nose, Epistaxis, Sinus Pain, Toothache, Odynophagia Respiratory: DENIES: Apneas, Cough, Snoring, Wheezing, Hemoptysis, Sputum production, Shortness of breath Cardiovascular: DENIES: Chest pain, Palpitations, Syncope, Dyspnea on Exertion , PND, Lower Extremity Edema, Orthopnea, Claudication Genitourinary: DENIES: Sexual dysfunction, Urinary frequency, Urinary incontinence, Urgency, Hematuria, Dysuria, Nocturia, Penile Discharge, Testicular Pain, Testicular Swelling Musculoskeletal: DENIES: Joint pain, Muscle aches, Stiffness, Joint Swelling, Back pain, Neck pain Integumentary: DENIES: Abnormal pigmentation, Nail changes, Pruritus, Rash Hematologic/lymphatic: DENIES: Bruising, Lymphadenopathy Immunologic/allergic: DENIES: Eczema, Urticaria Neurologic: COMPLAINS OF: Headache, DENIES: Abnormal gait, Localized weakness, Paresthesias, Seizures, Speech Problems, Tremor, Poor Balance Past Family Social History Allergies: Coded Allergies: No Known Allergies (Unverified , 01/31/17) Past Medical History Lung carcinoma Metastatic brain tumor Pulmonary embolism Hearing loss Past Surgical History Craniotomy for resection of brain tumor January 2017 Reported Medications Min Xarelraisa Active Ordered Medications Current Medications Sodium Chloride 1,000 ml @ 50 mls/hr Q20H IV Last administered on 05/20/17at 21: 37; Start 05/20/17 at 09:00 Acetaminophen (Tylenol) 650 mg Q6H PRN PO PAIN 1-10 AND/OR FEVER >101F Last administered on 05/20/17at 22:48; Start 05/20/17 at 09:00 Morphine Sulfate (Morphine Inj) 2 mg Q2H PRN IV PUSH PAIN SCALE 6 TO 10; Start 05/20/17 at 09:00 Famotidine (Pepcid Inj) 20 mg Q12HR IV PUSH Last administered on 05/21/17at 09:37 ; Start 05/20/17 at 09:00 Ondansetron HCl (Zofran Inj) 4 mg Q6H PRN IV PUSH NAUSEA OR VOMITING; Start 05/20/17 at 09:00 Miscellaneous Information 1 [id number] XX Last administered on 05/20/17at 09:00; Start 05/20/17 at 09:00 Chlorhexidine Gluconate (Chlorhexidine 2% Cloth) 3 pack Taper DAILY@04 TOP Last administered on 05/21/17at 04:00; Start 05/21/17 at 04:00; Stop 05/17/18 at 03 :59 Chlorhexidine Gluconate (Chlorhexidine 2% Cloth) 3 pack UNSCH PRN TOP HYGIENIC CARE; Start 05/20/17 at 09:00 Senna/Docusate Sodium (Jaqui-Colace) 1 tab BID PO Last administered on 05/21/17at 09:32; Start 05/20/17 at 09:00 Magnesium Hydroxide (Milk Of Magnesia Liq) 30 ml Q12H PRN PO Mild constipation ; Start 05/20/17 at 09:00 Sennosides (Senokot) 17.2 mg Q12H PRN PO Moderate constipation; Start 05/20/17 at 09:00 Bisacodyl (Dulcolax Supp) 10 mg DAILY PRN RECTAL SEVERE CONSITIPATION; Start at 09:00 Lactulose (Lactulose Liq) 30 ml DAILY PRN PO SEVERE CONSITIPATION; Start at 09:00 Levetriacetam 500 mg/Sodium Chloride 105 ml @ 420 mls/hr Q12HR IV Last administered on 05/21/17at 09:00; Start 05/20/17 at 09:00 Gadodiamide (Omniscan Pf Inj) 15 ml STK-MED ONCE IVCONTRAST Last administered on 05/20/17at 17:17; Start 05/20/17 at 17:17; Stop 05/20/17 at 17:18; Status DC Potassium Chloride 100 ml @ 50 mls/hr Q2H PRN IV For Potassium 2.8 - 3.2 mEq/L ; Start 05/21/17 at 06:00 Potassium Chloride 100 ml @ 50 mls/hr Q2H PRN IV For Potassium 2.8 - 3.2 mEq/ L Last administered on 05/21/17at 14:35; Start 05/21/17 at 06:00 Potassium Bicarb/ Potassium Chloride (K-Lyte Cl Eff) 50 meq UNSCH PRN PO For Potassium 3.3 - 3.5 mEq/L; Start 05/21/17 at 06:00 Potassium Chloride 100 ml @ 25 mls/hr UNSCH PRN IV For Potassium 3.3 - 3.5 mEq /L; Start 05/21/17 at 06:00 Potassium Chloride 100 ml @ 50 mls/hr Q2H PRN IV For Potassium 3.3 - 3.5 mEq/L ; Start 05/21/17 at 06:00 Magnesium Sulfate 4 gm/Sodium Chloride 100 ml @ 50 mls/hr UNSCH PRN IV For Magnesium 0.9 - 1.1 mg/dL; Start 05/21/17 at 06:00 Magnesium Oxide (Mag-Ox) 800 mg UNSCH PRN PO For Magnesium 1.2 - 1.6 mg/dL; Start 05/21/17 at 06:00 Magnesium Sulfate 2 gm/Sodium Chloride 100 ml @ 50 mls/hr UNSCH PRN IV For Magnesium 1.2 - 1.6 mg/dL; Start 05/21/17 at 06:00 Potassium Phosphate (K-Phos) 2,000 mg Q4H PRN PO For Phosphorus < 2.5 mg/dL; Start 05/21/17 at 06:00 Sodium Phosphate 30 mmol/Sodium Chloride 250 ml @ 42 mls/hr UNSCH PRN IV For Phosphorus < 2.5 mg/dL; Start 05/21/17 at 06:00 Potassium Phosphate (K-Phos) 2,000 mg UNSCH PRN PO/TUBE SEE LABEL COMMENTS; Start 05/21/17 at 06:00 Potassium Phosphate 30 mmol/ Sodium Chloride 260 ml @ 42 mls/hr UNSCH PRN IV SEE LABEL COMMENTS; Start 05/21/17 at 06:00 Family History His family history was reviewed and was noncontributory to this admission History of Alzheimer's disease Social History Occasional alcohol use negative for tobacco, or illicit drug use Physical Exam Vital Signs Vital Signs Date Time Temp Pulse Resp B/P (MAP) Pulse Ox O2 Delivery O2 Flow Rate FiO2 05/20/17 10:00 79 05/20/17 08:00 77 05/20/17 08:00 97.9 79 18 121/68 (85) 94 Physical Exam The patient is alert, awake and oriented to time, place and person. Speech with word finding difficulties Cranial nerve examination: pupils to be equal, round and reactive to light. Extra-ocular movements are intact. Facial motor and sensory function are normal and symmetrical. Gross hearing appears intact. Sternocleidomastoid and trapezius muscles are symmetrical. Other cranial nerves are intact. Neck is soft and supple with a good range of motion without pain. Muscle strength is normal in all muscle groups of both upper and lower extremities. Sensory examination is intact to light touch and pin prick in both the upper and lower extremities. Deep tendon reflexes are symmetrical in both upper and lower extremities. There is a bilateral plantar flexion response. Cerebellar examination is unremarkable, without deficits. Lungs are clear Heart regular rhythm and rate Abdomen soft, benign Skin warm and dry Imaging Last [address] 05/20/17 0000 Signed Impressions: Service Date/Time: Saturday, May 20, 2017 09:29 - CONCLUSION: Left temporal encephalomalacia defect with significant fluid herniating out of the craniotomy defect. No evidence of acute hemorrhage or acute process. Rick Rojas MD Assessment and Plan Assessment and Plan Caprini VTE Risk Assessment Caprini VTE Risk Assessment: Mod/High Risk (score >= 2) VTE Pharm Contraindication: Hemorrhage Caprini Risk Assessment Model Point Value = 1 Point Value = 2 Point Value = 3 Point Value = 5 Age 41-60 Minor surgery BMI > 25 kg/m2 Swollen legs Varicose veins or History of unexplained or recurrent spontaneous Oral contraceptives or hormone replacement Sepsis (< 1 month) Serious lung disease, including pneumonia (< 1 month) Abnormal pulmonary function Acute myocardial infarction Congestive heart failure (< 1 month) History of inflammatory bowel disease Medical patient at bed rest Age 61-74 Arthroscopic surgery Major open surgery (> 45 min) Laparoscopic surgery (> 45 min) Malignancy Confined to bed (> 72 hours) Immobilizing plaster cast Central venous access Age >= 75 History of VTE Family history of VTE Factor V Leiden Prothrombin [id number] Lupus anticoagulant Anticardiolipin antibodies Elevated serum homocysteine Heparin-induced thrombocytopenia Other congenital or acquired thrombophilia Stroke (< 1 month) Elective arthroplasty Hip, pelvis, or leg fracture Acute spinal cord injury (< 1 month) Prophylaxis Regimen Total Risk Factor Score Risk Level Prophylaxis Regimen 0-1 Low Early ambulation 2 Moderate Order ONE of the following: *Sequential Compression Device (SCD) *Heparin 5000 units SQ BID 3-4 Higher Order ONE of the following medications: *Heparin 5000 units SQ TID *Enoxaparin/Lovenox 40 mg SQ daily (WT < 150 kg, CrCl > 30 mL/min) *Enoxaparin/Lovenox 30 mg SQ daily (WT < 150 kg, CrCl > 10-29 mL/min) *Enoxaparin/Lovenox 30 mg SQ BID (WT < 150 kg, CrCl > 30 mL/min) AND/OR *Sequential Compression Device (SCD) 5 or more Highest Order ONE of the following medications: *Heparin 5000 units SQ TID (Preferred with Epidurals) *Enoxaparin/Lovenox 40 mg SQ daily (WT < 150 kg, CrCl > 30 mL/min) *Enoxaparin/Lovenox 30 mg SQ daily (WT < 150 kg, CrCl > 10-29 mL/min) *Enoxaparin/Lovenox 30 mg SQ BID (WT < 150 kg, CrCl > 30 mL/min) AND *Sequential Compression Device (SCD) Attending Statement I reviewed his clinical and radiological findings. Last [address] 05/20/17 0000 Signed Impressions: Service Date/Time: Saturday, May 20, 2017 09:29 - CONCLUSION: Left temporal encephalomalacia defect with significant fluid herniating out of the craniotomy defect. No evidence of acute hemorrhage or acute process. Rick Rojas MD I am unable to provide much recommendations based on plain CT of the brain. I do not see any evidence of hemorrhage reported at the other hospital. I recommend an MRI of the brain with with and without contrast to rule out tumors " Rensi. At this time I will defer further recommendations to upon completion of his workup Pulmonary. Continue aggressive pulmonary toilette, nasotracheal suction, and breathing treatments with nebulizers. Daily PT and OT Nutrition. Tolerating Oral diet Renal. Continue to monitor closely urine output, BUN and creatinine Endocrine. Continue to Monitor serial Acu checks and SSI as needed in detail ID continue to monitor for signs of infection Continue Protonix for stress ulcer prophylaxis Continue Zach hose and SCD's for DVT prophylaxis Further recommendations will be provided depending on the patient's clinical evaluation and follow up studies. Yemi Jackman MD May 20, 2017 11:16
[2017-05-20] MEDS ORDERED: GADODIAMIDE PF 287 MG/ML 20 ML VIAL (for RAD MRI) IVCONTRAST ONE (17:17)
--- NOTE | 2017-05-20 21:01 | RADRPT ---
EXAM DATE/TIME: 05/20/2017 16:57 [facility] COMPARISON: CT BRAIN W/O CONTRAST, May 20, 2017, 9:29. MRI BRAIN W & W/O CONTRAST, January 31, 2017, 8:31. INDICATIONS : Decreased level of consciousness. CONTRAST: 15 cc Omniscan (gadodiamide) IV MEDICAL HISTORY : Metastatic, brain. Carcinoma, lung. SURGICAL HISTORY : Craniotomy. ENCOUNTER: Initial ACUITY: 1 day PAIN SCORE: 0/10 LOCATION: cranial TECHNIQUE: An MRI brain stealth procedure was performed. The information will be used in the OR for localizatio n. FINDINGS: No signs of acute infarction. There is encephalomalacia and gliosis in the left temporal region. Ther e is moderate increased flair signal the bilateral centrum semiovale and periventricular white matter . There is fluid opacifying the left mastoid air cells and Montgomery apex. Reidentified is a focal area of low attenuation in the left temporal region demonstrating decreased T1 signal consistent with the operative cavity and this extends laterally through the craniotomy defect 4.8 x 3.6 cm in transverse dimension. There is flair peripheral hyperintensity and a central hypointense mass in the right tempo ral region posteriorly on image 13 of series 24 measuring 1.2 x 1.1 cm in transverse and AP dimension . This is hyperintense centrally pre-contrast consistent with blood products, and following contrast administration there is avid enhancement identified. No significant surrounding edema. There is mild enhancement seen surrounding the operative cavity in the left temporal lobe without edema. CONCLUSION: Enhancing lesion in the right temporal region and postoperative changes left temporal lobe with mild peripheral enhancement seen. Bret Rawls MD on May 20, 2017 at 20:53 Board Certified Radiologist. This report was verified electronically.
[2017-05-20] MEDS: DOCUSATE SODIUM 50 MG/SENNA 8.6 MG TAB PO SCH (21:26)
[2017-05-21] VITALS (12 sets, daily range): BP systolic 106–129; BP diastolic 64–79; PULSE 82–109; RESP 16–26; TEMP 98–99.8; O2SAT 92–96
[2017-05-21] MEDS: CHLORHEXIDINE GLUCONATE 2 % 1 PACK (2 CLOTHS) TOP SCH (04:00)
[2017-05-21] MEDS ORDERED: POTASSIUM CHLORIDE 25 MEQ EFFERVESCENT TAB PO PRN (06:00)
[2017-05-21] MEDS ORDERED: POTASSIUM CHLOR 40 MEQ PREMIX 100 ML IV PRN ×2 (06:00)
[2017-05-21] MEDS ORDERED: SODIUM PHOSPHATE INJ 30 MMOL in SODIUM CHLOR 0.9% 250 ML INJ 240 ML IV PRN (06:00)
[2017-05-21] MEDS ORDERED: POTASSIUM PHOSPHATE MONOBASIC 500 MG TAB PO PRN (06:00)
[2017-05-21] MEDS ORDERED: MAGNESIUM SULFATE INJ 4 GM in SODIUM CHLORIDE 0.9% INJ 92 ML IV PRN (06:00)
[2017-05-21] MEDS ORDERED: POTASSIUM PHOSPHATE MONOBASIC 500 MG TAB PO/TUBE PRN (06:00)
[2017-05-21] MEDS ORDERED: POTASSIUM PHOSPHATE INJ 30 MMOL in SODIUM CHLOR 0.9% 250 ML INJ 250 ML IV PRN (06:00)
[2017-05-21] MEDS ORDERED: MAGNESIUM SULFATE INJ 2 GM in SODIUM CHLORIDE 0.9% INJ 96 ML IV PRN (06:00)
[2017-05-21] MEDS ORDERED: POTASSIUM CHLOR 20 MEQ PREMIX 100 ML IV PRN (06:00)
[2017-05-21] MEDS ORDERED: MAGNESIUM OXIDE 400 MG TAB PO PRN (06:00)
[2017-05-21] MEDS: POTASSIUM CHLOR 20 MEQ PREMIX 100 ML IV PRN ×3 (06:10→14:35)
[2017-05-21] MEDS: levETIRAcetam INJ 500 MG in SODIUM CHLORIDE 0.9% INJ 100 ML IV SCH ×2 (09:00→22:06)
[2017-05-21] MEDS: DOCUSATE SODIUM 50 MG/SENNA 8.6 MG TAB PO SCH ×2 (09:32→22:07)
[2017-05-21] MEDS: FAMOTIDINE 20 MG/2 ML VIAL IV PUSH SCH ×2 (09:37→22:07)
--- NOTE | 2017-05-21 11:48 | HHI.CCPN ---
Subjective Remarks/Hospital Course 56 y/o right handed man s/p resection left temporal lobe metastatic brain lesion from right upper lobe primary in January 2017. Presents to [facility] for urgent evaluation. New brain met right side with surrounding hemorrhage by report. Patient is on xarelto. No seizures. Transferred to [facility] where I have met him on his arrival to the [facility]. 05/21/17: Patient is sitting in bed not in any acute distress. MRI shows new metastasis in the right temporal region. Breathing comfortably protecting airway. Weaker on the right upper and lower extremity Objective Vital Signs Date Time Temp Pulse Resp B/P (MAP) Pulse Ox O2 Delivery O2 Flow Rate FiO2 05/21/17 10:00 102 05/21/17 08:16 94 21 05/21/17 08:00 99.8 26 118/79 (92) 05/21/17 07:00 Room Air Intake and Output 05/21/17 05/21/17 05/22/17 08:00 16:00 00:00 Intake Total 960 ml Output Total 400 ml Balance 560 ml Objective Remarks Gen: Quiet, appears comfortable not in any acute distress Head: Atraumatic. Neck: Supple, airway widely patent. Lungs: Rhonchi right side, left clear. Heart: Nl S1S2, RRR, No JVD. Abdomen: Soft, no guarding. No tenderness. Extremities: Warm, well perfused. Ankle bracelet right ankle. Neuro: Moves 4 limbs to command. Hand grasps 5/5 on left upper extremity, strength 4/5 on right upper and lower extremity. EOMs intact. Speech clear but difficulty finding words. Tongue midline, shoulder shrug symmetrical. A/P Assessment and Plan Assessment: 1. Intracranial hemorrhage 2. Lung cancer metastatic to brain, new metastases to the right temporal lobe Plan: 1. MRI shows right temporal metastasis 2. Maintain SBP < 140. 3. HOB up. 4. Pepcid. 5. SCDs. 6. Neurosurgical evaluation-full consult pending 7. Coags. 8. Keppra for seizure prophylaxis 9. No indication for Decadron at this time Overall impression: Critically ill with new brain hemorrhage surrounding right hemispheric metastases. Level 2 Transfer to Neuro Floor. [facility] to assume care in Emily Talley MD May 21, 2017 11:48
--- NOTE | 2017-05-21 15:13 | HHI.NSPN ---
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 He has undergone palliative whole brain radiation therapy is on Keytruda on May 2016. On July he received additional radiosurgery with 18 GY to a lesion on the right temporal lobe, in a single fracture. On July 21, 2016 he received with additional 30 GY to the left temporal lobe lesion. His prior CT of the chest has shown a cavitary mass on the right pulmonary apex, as well as evidence of pulmonary emboli. He was anticoagulated with Xarelto for his PE. He has a history of treatment with carboplatin/ALI MTA chemotherapy. The carboplatin was stopped on December 2016 due to hearing loss. Mr Wilson presents to [facility] for urgent evaluation. He suffered altered mental status. The patient is unable to provide much history. He underwent a scan at [facility] which was reported as having a new brain metastases in the right side with surrounding hemorrhage. Patient is on xarelto. No seizures. No tongue biting. No tonic-clonic movement seen. No incontinence of stool or urine. He was moving all 4 extremities. Transferred to [facility] and a neurosurgical consultation was requested 05/21. An MRI brain was completed. he is alert, awake, following commands . Labs, Micro, & Vital Signs Results Date Time Temp Pulse Resp B/P (MAP) Pulse Ox O2 Delivery O2 Flow Rate FiO2 05/21/17 10:00 102 05/21/17 08:16 94 21 05/21/17 08:00 99.8 103 26 118/79 (92) 93 05/21/17 08:00 103 05/21/17 07:00 93 Room Air 05/21/17 06:00 94 05/21/17 04:00 98.6 93 23 106/73 (84) 96 05/21/17 04:00 93 05/21/17 02:00 88 05/21/17 00:00 82 05/21/17 00:00 99.4 82 22 108/64 (79) 94 05/20/17 22:00 103 05/20/17 20:43 95 21 05/20/17 20:00 95 Room Air 05/20/17 20:00 94 05/20/17 20:00 100.4 87 18 128/73 (91) 94 05/20/17 18:00 90 05/20/17 16:00 86 05/20/17 16:00 98.0 91 18 119/76 (90) 96 Constitutional Vital Signs Date Time Temp Pulse Resp B/P (MAP) Pulse Ox O2 Delivery O2 Flow Rate FiO2 05/21/17 10:00 102 05/21/17 08:16 94 21 05/21/17 08:00 99.8 103 26 118/79 (92) 93 05/21/17 08:00 103 05/21/17 07:00 93 Room Air 05/21/17 06:00 94 05/21/17 04:00 98.6 93 23 106/73 (84) 96 05/21/17 04:00 93 05/21/17 02:00 88 05/21/17 00:00 82 05/21/17 00:00 99.4 82 22 108/64 (79) 94 05/20/17 22:00 103 05/20/17 20:43 95 21 05/20/17 20:00 95 Room Air 05/20/17 20:00 94 05/20/17 20:00 100.4 87 18 128/73 (91) 94 05/20/17 18:00 90 05/20/17 16:00 86 05/20/17 16:00 98.0 91 18 119/76 (90) 96 Physical Exam Mr Wilson is alert, awake and oriented to time, place and person. Speech with word finding difficulties Cranial nerve examination: pupils to be equal, round and reactive to light. Extra-ocular movements are intact. Facial motor and sensory function are normal and symmetrical. Gross hearing appears intact. Sternocleidomastoid and trapezius muscles are symmetrical. Other cranial nerves are intact. Neck is soft and supple with a good range of motion without pain. Muscle strength is normal in all muscle groups of both upper and lower extremities. Sensory examination is intact to light touch and pin prick in both the upper and lower extremities. Deep tendon reflexes are symmetrical in both upper and lower extremities. There is a bilateral plantar flexion response. Cerebellar examination is unremarkable, without deficits. Lungs are clear Heart regular rhythm and rate Abdomen soft, benign Skin warm and dry Medications Current Medications Current Medications Sodium Chloride 1,000 ml @ 50 mls/hr Q20H IV Last administered on 05/20/17at 21: 37; Start 05/20/17 at 09:00 Acetaminophen (Tylenol) 650 mg Q6H PRN PO PAIN 1-10 AND/OR FEVER >101F Last administered on 05/20/17at 22:48; Start 05/20/17 at 09:00 Morphine Sulfate (Morphine Inj) 2 mg Q2H PRN IV PUSH PAIN SCALE 6 TO 10; Start 05/20/17 at 09:00 Famotidine (Pepcid Inj) 20 mg Q12HR IV PUSH Last administered on 05/21/17at 09:37 ; Start 05/20/17 at 09:00 Ondansetron HCl (Zofran Inj) 4 mg Q6H PRN IV PUSH NAUSEA OR VOMITING; Start 05/20/17 at 09:00 Miscellaneous Information 1 Q361D XX Last administered on 05/20/17at 09:00; Start 05/20/17 at 09:00 Chlorhexidine Gluconate (Chlorhexidine 2% Cloth) 3 pack Taper DAILY@04 TOP Last administered on 05/21/17at 04:00; Start 05/21/17 at 04:00; Stop 05/17/18 at 03 :59 Chlorhexidine Gluconate (Chlorhexidine 2% Cloth) 3 pack UNSCH PRN TOP HYGIENIC CARE; Start 05/20/17 at 09:00 Senna/Docusate Sodium (Jqaui-Colace) 1 tab BID PO Last administered on 05/21/17at 09:32; Start 05/20/17 at 09:00 Magnesium Hydroxide (Milk Of Magnesia Liq) 30 ml Q12H PRN PO Mild constipation ; Start 05/20/17 at 09:00 Sennosides (Senokot) 17.2 mg Q12H PRN PO Moderate constipation; Start 05/20/17 at 09:00 Bisacodyl (Dulcolax Supp) 10 mg DAILY PRN RECTAL SEVERE CONSITIPATION; Start at 09:00 Lactulose (Lactulose Liq) 30 ml DAILY PRN PO SEVERE CONSITIPATION; Start at 09:00 Levetriacetam 500 mg/Sodium Chloride 105 ml @ 420 mls/hr Q12HR IV Last administered on 05/21/17at 09:00; Start 05/20/17 at 09:00 Gadodiamide (Omniscan Pf Inj) 15 ml STK-MED ONCE IVCONTRAST Last administered on 05/20/17at 17:17; Start 05/20/17 at 17:17; Stop 05/20/17 at 17:18; Status DC Potassium Chloride 100 ml @ 50 mls/hr Q2H PRN IV For Potassium 2.8 - 3.2 mEq/L ; Start 05/21/17 at 06:00 Potassium Chloride 100 ml @ 50 mls/hr Q2H PRN IV For Potassium 2.8 - 3.2 mEq/ L Last administered on 05/21/17at 14:35; Start 05/21/17 at 06:00 Potassium Bicarb/ Potassium Chloride (K-Lyte Cl Eff) 50 meq UNSCH PRN PO For Potassium 3.3 - 3.5 mEq/L; Start 05/21/17 at 06:00 Potassium Chloride 100 ml @ 25 mls/hr UNSCH PRN IV For Potassium 3.3 - 3.5 mEq /L; Start 05/21/17 at 06:00 Potassium Chloride 100 ml @ 50 mls/hr Q2H PRN IV For Potassium 3.3 - 3.5 mEq/L ; Start 05/21/17 at 06:00 Magnesium Sulfate 4 gm/Sodium Chloride 100 ml @ 50 mls/hr UNSCH PRN IV For Magnesium 0.9 - 1.1 mg/dL; Start 05/21/17 at 06:00 Magnesium Oxide (Mag-Ox) 800 mg UNSCH PRN PO For Magnesium 1.2 - 1.6 mg/dL; Start 05/21/17 at 06:00 Magnesium Sulfate 2 gm/Sodium Chloride 100 ml @ 50 mls/hr UNSCH PRN IV For Magnesium 1.2 - 1.6 mg/dL; Start 05/21/17 at 06:00 Potassium Phosphate (K-Phos) 2,000 mg Q4H PRN PO For Phosphorus < 2.5 mg/dL; Start 05/21/17 at 06:00 Sodium Phosphate 30 mmol/Sodium Chloride 250 ml @ 42 mls/hr UNSCH PRN IV For Phosphorus < 2.5 mg/dL; Start 05/21/17 at 06:00 Potassium Phosphate (K-Phos) 2,000 mg UNSCH PRN PO/TUBE SEE LABEL COMMENTS; Start 05/21/17 at 06:00 Potassium Phosphate 30 mmol/ Sodium Chloride 260 ml @ 42 mls/hr UNSCH PRN IV SEE LABEL COMMENTS; Start 05/21/17 at 06:00 Current Medications Sodium Chloride 1,000 ml @ 50 mls/hr Q20H IV Last administered on 05/20/17at 21: 37; Start 05/20/17 at 09:00 Acetaminophen (Tylenol) 650 mg Q6H PRN PO PAIN 1-10 AND/OR FEVER >101F Last administered on 05/20/17at 22:48; Start 05/20/17 at 09:00 Morphine Sulfate (Morphine Inj) 2 mg Q2H PRN IV PUSH PAIN SCALE 6 TO 10; Start 05/20/17 at 09:00 Famotidine (Pepcid Inj) 20 mg Q12HR IV PUSH Last administered on 05/21/17at 09:37 ; Start 05/20/17 at 09:00 Ondansetron HCl (Zofran Inj) 4 mg Q6H PRN IV PUSH NAUSEA OR VOMITING; Start 05/20/17 at 09:00 Miscellaneous Information 1 Q361D XX Last administered on 05/20/17at 09:00; Start 05/20/17 at 09:00 Chlorhexidine Gluconate (Chlorhexidine 2% Cloth) 3 pack Taper DAILY@04 TOP Last administered on 05/21/17at 04:00; Start 05/21/17 at 04:00; Stop 05/17/18 at 03 :59 Chlorhexidine Gluconate (Chlorhexidine 2% Cloth) 3 pack UNSCH PRN TOP HYGIENIC CARE; Start 05/20/17 at 09:00 Senna/Docusate Sodium (Jaqui-Colace) 1 tab BID PO Last administered on 05/21/17at 09:32; Start 05/20/17 at 09:00 Magnesium Hydroxide (Milk Of Magnesia Liq) 30 ml Q12H PRN PO Mild constipation ; Start 05/20/17 at 09:00 Sennosides (Senokot) 17.2 mg Q12H PRN PO Moderate constipation; Start 05/20/17 at 09:00 Bisacodyl (Dulcolax Supp) 10 mg DAILY PRN RECTAL SEVERE CONSITIPATION; Start at 09:00 Lactulose (Lactulose Liq) 30 ml DAILY PRN PO SEVERE CONSITIPATION; Start at 09:00 Levetriacetam 500 mg/Sodium Chloride 105 ml @ 420 mls/hr Q12HR IV Last administered on 05/21/17at 09:00; Start 05/20/17 at 09:00 Gadodiamide (Omniscan Pf Inj) 15 ml STK-MED ONCE IVCONTRAST Last administered on 05/20/17at 17:17; Start 05/20/17 at 17:17; Stop 05/20/17 at 17:18; Status DC Potassium Chloride 100 ml @ 50 mls/hr Q2H PRN IV For Potassium 2.8 - 3.2 mEq/L ; Start 05/21/17 at 06:00 Potassium Chloride 100 ml @ 50 mls/hr Q2H PRN IV For Potassium 2.8 - 3.2 mEq/ L Last administered on 05/21/17at 14:35; Start 05/21/17 at 06:00 Potassium Bicarb/ Potassium Chloride (K-Lyte Cl Eff) 50 meq UNSCH PRN PO For Potassium 3.3 - 3.5 mEq/L; Start 05/21/17 at 06:00 Potassium Chloride 100 ml @ 25 mls/hr UNSCH PRN IV For Potassium 3.3 - 3.5 mEq /L; Start 05/21/17 at 06:00 Potassium Chloride 100 ml @ 50 mls/hr Q2H PRN IV For Potassium 3.3 - 3.5 mEq/L ; Start 05/21/17 at 06:00 Magnesium Sulfate 4 gm/Sodium Chloride 100 ml @ 50 mls/hr UNSCH PRN IV For Magnesium 0.9 - 1.1 mg/dL; Start 05/21/17 at 06:00 Magnesium Oxide (Mag-Ox) 800 mg UNSCH PRN PO For Magnesium 1.2 - 1.6 mg/dL; Start 05/21/17 at 06:00 Magnesium Sulfate 2 gm/Sodium Chloride 100 ml @ 50 mls/hr UNSCH PRN IV For Magnesium 1.2 - 1.6 mg/dL; Start 05/21/17 at 06:00 Potassium Phosphate (K-Phos) 2,000 mg Q4H PRN PO For Phosphorus < 2.5 mg/dL; Start 05/21/17 at 06:00 Sodium Phosphate 30 mmol/Sodium Chloride 250 ml @ 42 mls/hr UNSCH PRN IV For Phosphorus < 2.5 mg/dL; Start 05/21/17 at 06:00 Potassium Phosphate (K-Phos) 2,000 mg UNSCH PRN PO/TUBE SEE LABEL COMMENTS; Start 05/21/17 at 06:00 Potassium Phosphate 30 mmol/ Sodium Chloride 260 ml @ 42 mls/hr UNSCH PRN IV SEE LABEL COMMENTS; Start 05/21/17 at 06:00 Medical Decision Making MDM Remarks Jozefrini VTE Risk Assessment Caprini VTE Risk Assessment: Mod/High Risk (score >= 2) VTE Pharm Contraindication: Hemorrhage Caprini Risk Assessment Model Point Value = 1 Point Value = 2 Point Value = 3 Point Value = 5 Age 41-60 Minor surgery BMI > 25 kg/m2 Swollen legs Varicose veins or History of unexplained or recurrent spontaneous Oral contraceptives or hormone replacement Sepsis (< 1 month) Serious lung disease, including pneumonia (< 1 month) Abnormal pulmonary function Acute myocardial infarction Congestive heart failure (< 1 month) History of inflammatory bowel disease Medical patient at bed rest Age 61-74 Arthroscopic surgery Major open surgery (> 45 min) Laparoscopic surgery (> 45 min) Malignancy Confined to bed (> 72 hours) Immobilizing plaster cast Central venous access Age >= 75 History of VTE Family history of VTE Factor V Leiden Prothrombin [id number] Lupus anticoagulant Anticardiolipin antibodies Elevated serum homocysteine Heparin-induced thrombocytopenia Other congenital or acquired thrombophilia Stroke (< 1 month) Elective arthroplasty Hip, pelvis, or leg fracture Acute spinal cord injury (< 1 month) Prophylaxis Regimen Total Risk Factor Score Risk Level Prophylaxis Regimen 0-1 Low Early ambulation 2 Moderate Order ONE of the following: *Sequential Compression Device (SCD) *Heparin 5000 units SQ BID 3-4 Higher Order ONE of the following medications: *Heparin 5000 units SQ TID *Enoxaparin/Lovenox 40 mg SQ daily (WT < 150 kg, CrCl > 30 mL/min) *Enoxaparin/Lovenox 30 mg SQ daily (WT < 150 kg, CrCl > 10-29 mL/min) *Enoxaparin/Lovenox 30 mg SQ BID (WT < 150 kg, CrCl > 30 mL/min) AND/OR *Sequential Compression Device (SCD) 5 or more Highest Order ONE of the following medications: *Heparin 5000 units SQ TID (Preferred with Epidurals) *Enoxaparin/Lovenox 40 mg SQ daily (WT < 150 kg, CrCl > 30 mL/min) *Enoxaparin/Lovenox 30 mg SQ daily (WT < 150 kg, CrCl > 10-29 mL/min) *Enoxaparin/Lovenox 30 mg SQ BID (WT < 150 kg, CrCl > 30 mL/min) AND *Sequential Compression Device (SCD) Attending Statement I reviewed his MRI of the brain and I have compared with the prior CT of the brain There is a focal area of low attenuation in the left temporal region demonstrating decreased T1 signal consistent with the operative cavity and this extends laterally through the craniotomy defect 4.8 x 3.6 cm in transverse dimension. There is flair peripheral hyperintensity and a central hypointense mass in the right temporal region posteriorly, measuring 1.2 x 1.1 cm in transverse and AP dimension. This is hyperintense centrally pre-contrast consistent with blood products, and following contrast administration there is avid enhancement identified. No significant surrounding edema. There is mild enhancement seen surrounding the operative cavity in the left temporal lobe without edema. I do not see any obvious tumors recurrence. I will defer further care and follow-up the patient to his neurosurgeon, Dr. Alex Wu, as well as his oncologist and radiation oncologist I provided emotional support Pulmonary. Continue aggressive pulmonary toilette, nasotracheal suction, and breathing treatments with nebulizers. Daily PT and OT Nutrition. Tolerating Oral diet Renal. Continue to monitor closely urine output, BUN and creatinine Endocrine. Continue to Monitor serial Acu checks and SSI as needed in detail ID continue to monitor for signs of infection Continue Protonix for stress ulcer prophylaxis Continue Zach hose and SCD's for DVT prophylaxis Further recommendations will be provided depending on the patient's clinical evaluation and follow up studies Yemi Jackman MD May 21, 2017 15:13
--- NOTE | 2017-05-21 18:03 | MB ---
cc: Mimi Owens MD DATE OF CONSULT: REASON FOR CONSULTATION: Confusion, mental status change. HISTORY OF PRESENT ILLNESS: Patient is a 56-year-old man with a history of left temporal lobe metastatic brain lesion from a right upper lobe lung primary in 01/2017. He had palliative whole brain radiation. He is on Keytruda since, I believe, May of last year. In 07/2016, he had radiosurgery to the lesion of the right temporal lobe in a single fracture. He also received additional to the left temporal lobe. His prior CT of the chest is showing a cavitary mass in the right pulmonary apex and evidence of pulmonary emboli. He was anticoagulated with Xarelto for his PE. He was treated with carboplatin, Alimta chemo. Carboplatin was stopped in December due to hearing loss. He went to [facility] for mental status change. The scan at that hospital showed possibly having new mets on the right side with hemorrhage. PAST MEDICAL HISTORY: As stated. He is currently on Keppra and Xarelto. PHYSICAL EXAMINATION: VITAL SIGNS: Temperature is 98.6, heart rate 100, respiratory rate 24, blood pressure 117/70. NEUROLOGIC: He is awake and alert. He knows he is in the hospital in [facility]. Cannot name the place. He knows who he is. Speech is fairly intact. He is somewhat slow to respond. He may have some mild expressive aphasia. His pupils are reactive. Motor chaves, he seems to move everything symmetrically. He does have some hearing loss. He is thin throughout with possibly what looks like atrophy throughout his muscles from weight loss. Reflexes are 2+. Cerebellar [id number] is normal. Toes, withdraws. Gait is withheld at this time. LABORATORY DATA: His labs are reviewed. Hemoglobin 9.7, platelets 64,000, MVC 101.8, band neutrophils 11. INR is 1.2. Potassium 2.6, albumin 2.7. IMAGING: Reviewed with enhancing lesion, right temporal region. Postop changes, left temporal, with mild peripheral enhancement. CURRENT MEDICATIONS: He is on some p.r.n. pain medicine, GI protection with Pepcid, Zofran p.r.n. He is on Keppra 500 mg q.12. IMPRESSION: Change in mental status may be multifactorial. At this point in time, I am not sure if he is back to baseline. He seems pretty alert and following commends. Recommend getting an EEG. Continue his Keppra. Watch for seizures. Have him follow up with his oncologist. PT, OT and if stable, discharge planning. MD PEBBLES Zee/LINDA , 05:02 PM , 06:00 PM
[2017-05-22] VITALS (14 sets, daily range): BP systolic 110–134; BP diastolic 67–80; PULSE 76–107; RESP 18–20; TEMP 97.5–99.8; O2SAT 94–98
[2017-05-22] MEDS: SODIUM CHLOR 0.9% 1000 ML INJ 1,000 ML IV SCH ×2 (00:33→21:00)
[2017-05-22] MEDS: CHLORHEXIDINE GLUCONATE 2 % 1 PACK (2 CLOTHS) TOP SCH (00:34)
[2017-05-22] MEDS: levETIRAcetam INJ 500 MG in SODIUM CHLORIDE 0.9% INJ 100 ML IV SCH ×2 (08:14→20:52)
[2017-05-22] MEDS: DOCUSATE SODIUM 50 MG/SENNA 8.6 MG TAB PO SCH ×2 (08:15→20:51)
[2017-05-22] MEDS: FAMOTIDINE 20 MG/2 ML VIAL IV PUSH SCH ×2 (08:15→20:52)
[2017-05-22 10:15] LABS: ALBUMIN 2.6 GM/DL (3.4-5.0); AST (GOT) 26 U/L (15-37); BLOOD UREA NITROGEN 7 MG/DL (7-18); CALCIUM 8.8 MG/DL (8.5-10.1); CHLORIDE 103 MEQ/L (98-107); CREATININE 0.53 MG/DL (0.60-1.30); GLOMERULAR FILTRATION RATE 196 ML/MIN (>89); GLUCOSE,RANDOM 69 MG/DL (74-106); SODIUM (NA) 137 MEQ/L (136-145)
[2017-05-22 10:17] LABS: ALT (GPT) 18 U/L (12-78)
[2017-05-22 10:19] LABS: ALKALINE PHOSPHATASE 101 U/L (45-117); TOTAL BILIRUBIN ADULT 0.6 MG/DL (0.2-1.0); TOTAL PROTEIN 6.4 GM/DL (6.4-8.2)
--- NOTE | 2017-05-22 13:17 | MG ---
cc: Mimi Owens MD ELECTROENCEPHALOGRAM NUMBER: [id number]. REFERRED BY: FLORA Lauren ROOM: [id number]. SUBJECTIVE: Photic done, seemed confused. Does not follow commands well. MRI shows right frontotemporal region posterior changes. Left temporal lobe with enhancement, with a history of brain metastases due to metastatic from lung cancer. On Keppra. History of chemotherapy and radiation. DESCRIPTION OF RECORD: Some muscle artifact, with overall background slowing noted to be at 4-5 hertz, with a washcloth put over his eyes to help him relax. Still predominantly 4-5 hertz beta frequency seen. At times, there is more slowing in the delta frequency. Noted that he is snoring. The patient certainly could be asleep. ECHOCARDIOGRAM: Low attenuation, unable to interpret. PHOTIC STIMULATION: Does show a driving response, a lot of eye artifact on top of that. No epileptic activity. IMPRESSION: Initially mild swelling seen and the patient tends to fall asleep and there increased attenuation, likely normal variant, consistent with what looks like a mild encephalopathy, but no epileptiform features. Clinical correlation. MD PEBBLES Zee/MAR , 06:53 PM , 07:37 PM
--- NOTE | 2017-05-22 15:08 | HHI.PR ---
Subjective Remarks The patient was resting in bed. He had no acute complaints. He said he was tolerating a diet. Discussed with nursing. Objective Vitals Vital Signs Date Time Temp Pulse Resp B/P (MAP) Pulse Ox O2 Delivery O2 Flow Rate FiO2 05/22/17 14:35 Room Air 05/22/17 12:00 107 05/22/17 11:38 99.2 98 20 112/71 (85) 98 05/22/17 08:00 97 05/22/17 07:36 97.6 98 20 115/78 (90) 95 05/22/17 05:15 98.8 99 18 110/80 (90) 95 05/22/17 04:06 106 05/22/17 02:53 95 05/22/17 00:40 99.8 102 18 134/77 (96) 94 05/22/17 00:10 102 05/21/17 20:45 Room Air 05/21/17 20:07 98.4 109 18 127/75 (92) 94 05/21/17 20:07 98 05/21/17 17:07 98.0 103 16 129/77 (94) 92 05/21/17 16:00 98.6 100 24 117/70 (86) 94 05/21/17 16:00 100 I/O 05/21/17 05/21/17 05/21/17 05/22/17 05/22/17 05/22/17 07:00 15:00 23:00 07:00 15:00 23:00 Intake Total 960 ml 100 ml Output Total 400 ml Balance 560 ml 100 ml Intake Oral 120 ml IV Total 840 ml 100 ml Output Urine Total 400 ml # Bowel Movements 0 Result Diagram: 05/22/17 0816 Imaging Last Impressions Head CT 05/20/17 0000 Signed Impressions: Service Date/Time: Saturday, May 20, 2017 09:29 - CONCLUSION: Left temporal encephalomalacia defect with significant fluid herniating out of the craniotomy defect. No evidence of acute hemorrhage or acute process. Rick Rojas MD Brain MRI 05/20/17 0000 Signed Impressions: Service Date/Time: Saturday, May 20, 2017 16:57 - CONCLUSION: Enhancing lesion in the right temporal region and postoperative changes left temporal lobe with mild peripheral enhancement seen. Bret Rawls MD Objective Remarks Gen: Appears comfortable not in any acute distress Head: Atraumatic. Neck: Supple, airway widely patent. Lungs: Clear to auscultation bilaterally. Heart: RRR, No JVD. Abdomen: Soft, no guarding. No tenderness. Extremities: Warm, well perfused. Neuro: Moves 4 limbs to command. Hand grasps 5/5 on left upper extremity, strength 4/5 on right upper and lower extremity. EOMs intact. Speech clear but difficulty finding words. Psych: Mood and affect appropriate. Medications and IVs Current Medications Medications (Trade) Dose Ordered Sig/Bruce Route Start Time Stop Time Status Last Admin Sodium Chloride 1,000 ml @ 50 mls/hr Q20H IV 05/20/17 09:00 05/20/17 21:37 (Tylenol) 650 mg Q6H PRN PO 05/20/17 09:00 05/20/17 22:48 (Morphine Inj) 2 mg Q2H PRN IV PUSH 05/20/17 09:00 (Pepcid Inj) 20 mg Q12HR IV PUSH 05/20/17 09:00 05/22/17 08:15 (Zofran Inj) 4 mg Q6H PRN IV PUSH 05/20/17 09:00 Miscellaneous Information 1 Q361D XX 05/20/17 09:00 05/20/17 09:00 (Chlorhexidine 2% Cloth) 3 pack Taper DAILY@04 TOP 05/21/17 04:00 05/17/18 03:59 05/21/17 04:00 (Chlorhexidine 2% Cloth) 3 pack UNSCH PRN TOP 05/20/17 09:00 (Jaqui-Colace) 1 tab BID PO 05/20/17 09:00 05/22/17 08:15 (Milk Of Magnesia Liq) 30 ml Q12H PRN PO 05/20/17 09:00 (Senokot) 17.2 mg Q12H PRN PO 05/20/17 09:00 (Dulcolax Supp) 10 mg DAILY PRN RECTAL 05/20/17 09:00 (Lactulose Liq) 30 ml DAILY PRN PO 05/20/17 09:00 Levetriacetam 500 mg/Sodium Chloride 105 ml @ 420 mls/hr Q12HR IV 05/20/17 09:00 05/22/17 08:14 (K-Lyte Cl Eff) 50 meq ONCE ONCE PO 05/22/17 16:00 05/22/17 16:01 A/P Assessment and Plan Intracranial hemorrhage/ Lung cancer metastatic to brain, new metastases to the right temporal lobe MRI shows right temporal metastasis. Neurosurgery consult appreciated. - Maintain SBP < 140. - HOB up. - follow up with neurosurgery. - Keppra for seizure prophylaxis. - No indication for Decadron at this time. - PT/ OT/ ST. Hypokalemia Potassium level 3.3. - replete and monitor. Hypoglycemia Likely secondary to decreased by mouth intake. - D5 normal saline. - Add Ensure to meals. - Monitor BMP. PPx: SCDs Discharge Planning Awaiting further neurosurgical evaluation Melvin Schneider DO May 22, 2017 15:08
[2017-05-22] MEDS ORDERED: DEXT 5%-NACL 0.9% 1000 ML INJ 1,000 ML IV SCH (15:45)
[2017-05-22] MEDS ORDERED: POTASSIUM CHLORIDE 25 MEQ EFFERVESCENT TAB PO ONE (16:00)
--- NOTE | 2017-05-22 22:53 | HHI.NSPN ---
History Chief Complaint: right shoulder pain Interval History 56-year-old male with history of metastatic lung cancer to the brain. He has received previous whole brain radiation with radiosurgery to right and left temporal lesions. More recent craniotomy for resection of left temporal lesion January 2017. Presents now upon transfer from [facility] for mental status changes with possible new hemorrhage. Subsequent follow-up CT and MRI at [facility] revealed no definite significant intracranial hemorrhage or mass effect with no new brain lesions. Exam Results Vital Signs Date Time Temp Pulse Resp B/P (MAP) Pulse Ox O2 Delivery O2 Flow Rate FiO2 05/22/17 21:56 95 05/22/17 16:00 100 05/22/17 15:44 97.5 20 114/70 (85) 05/22/17 14:35 Room Air 05/21/17 08:16 21 Intake and Output 05/22/17 05/22/17 05/23/17 08:00 16:00 00:00 Intake Total 1025 ml Output Total 600 ml Balance 425 ml Physical Examination Gen.: No apparent distress Neurologic: Awake, mild lethargy. Answers questions with mild difficulty Follows most simple commands well Moderate dysarthria. Cranial nerve examination: pupils to be equal, round and reactive to light. Extra-ocular movements are intact. Facial motor and sensory function are normal and symmetrical. Gross hearing appears intact. Sternocleidomastoid and trapezius muscles are symmetrical. Other cranial nerves are intact. Neck is soft and supple with a good range of motion without pain. Muscle strength is normal in all muscle groups of both upper and lower extremities except 3/5 right tibialis anterior Sensory examination is intact to light touch and pin prick in both the upper and lower extremities. Deep tendon reflexes are symmetrical in both upper and lower extremities. There is a bilateral plantar flexion response. Cerebellar examination is unremarkable, without deficits. HEENT: Poor dentition. May contribute to dysarthria Lungs are clear Cardiac: Regular rhythm Abdomen soft, benign Skin warm and dry Lab, Micro, Other Results Last Impressions Head CT 05/20/17 0000 Signed Impressions: Service Date/Time: Saturday, May 20, 2017 09:29 - CONCLUSION: Left temporal encephalomalacia defect with significant fluid herniating out of the craniotomy defect. No evidence of acute hemorrhage or acute process. Rick Rojas MD Brain MRI 05/20/17 0000 Signed Impressions: Service Date/Time: Monday, May 20, 2017 16:57 - CONCLUSION: Enhancing lesion in the right temporal region and postoperative changes left temporal lobe with mild peripheral enhancement seen. Bret Rawls MD Laboratory Tests Test 05/22/17 08:16 Blood Urea Nitrogen 7 MG/DL Creatinine 0.53 MG/DL Random Glucose 69 MG/DL Total Protein 6.4 GM/DL Albumin 2.6 GM/DL Calcium Level 8.8 MG/DL Alkaline Phosphatase 101 U/L Aspartate Amino Transf (AST/SGOT) 26 U/L Alanine Aminotransferase (ALT/SGPT) 18 U/L Total Bilirubin 0.6 MG/DL Sodium Level 137 MEQ/L Potassium Level 3.3 MEQ/L Chloride Level 103 MEQ/L Carbon Dioxide Level 23.0 MEQ/L Anion Gap 11 MEQ/L Estimat Glomerular Filtration Rate 196 ML/MIN Medical Decision Making Impression and Plan Impression: 1. Most recent MRI of the brain during this admission reveals a relatively stable right temporal lobe partially enhancing lesion with an area of encephalomalacia with postoperative changes in the left temporal lobe. Some persistent edema. Recent altered mental status possibly related to seizure. Plan: I was discussed with the patient No indication for surgical intervention at this point. Neurology following for possible seizures Continuing anticonvulsants May benefit from further inpatient rehabilitation. Alex Wu MD May 22, 2017 22:53
[2017-05-23] VITALS (9 sets, daily range): BP systolic 108–129; BP diastolic 65–85; PULSE 67–108; RESP 18–23; TEMP 97–98.6; O2SAT 91–99
[2017-05-23] MEDS: CHLORHEXIDINE GLUCONATE 2 % 1 PACK (2 CLOTHS) TOP SCH (04:00)
[2017-05-23] MEDS: SODIUM CHLOR 0.9% 1000 ML INJ 1,000 ML IV SCH (04:54)
[2017-05-23 07:09] LABS: HEMATOCRIT 30.2 % (39.0-51.0); HEMOGLOBIN 10.5 GM/DL (13.0-17.0); MEAN CELL VOLUME 101.1 FL (80.0-100.0); MEAN CORPUSCULAR HEMOGLOBIN 35.2 PG (27.0-34.0); MEAN CORPUSCULAR HGB CONC 34.8 % (32.0-36.0); MEAN PLATELET VOLUME 6.5 FL (7.0-11.0); PLATELET COUNT 72 TH/MM3 (150-450); RED BLOOD COUNT 2.99 MIL/MM3 (4.50-5.90); RED CELL DISTRIBUTION WIDTH 16.5 % (11.6-17.2); WHITE BLOOD COUNT 7.6 TH/MM3 (4.0-11.0)
[2017-05-23 07:32] LABS: BICARBONATE 24.7 MEQ/L (21.0-32.0); CREATININE 0.51 MG/DL (0.60-1.30); MAGNESIUM 1.6 MG/DL (1.5-2.5)
[2017-05-23] MEDS: levETIRAcetam INJ 500 MG in SODIUM CHLORIDE 0.9% INJ 100 ML IV SCH ×2 (08:13→22:55)
[2017-05-23] MEDS: FAMOTIDINE 20 MG/2 ML VIAL IV PUSH SCH ×2 (08:16→22:56)
[2017-05-23] MEDS: DOCUSATE SODIUM 50 MG/SENNA 8.6 MG TAB PO SCH ×2 (08:21→21:00)
[2017-05-23] MEDS: MORPHINE SULFATE 2 MG/ML INJ IV PUSH PRN (10:38)
--- NOTE | 2017-05-23 17:20 | HHI.NSPN ---
(WoodstockMing) History Chief Complaint: Unable to obtain due to patient's mental status. (LaceyMing) Interval History 05/20: This is 56 y/o right handed man s/p resection left temporal lobe metastatic brain lesion from right upper lobe primary in January 2017. He has undergone palliative whole brain radiation therapy is on Keytruda on May 2016. On July 19, 2016 he received additional radiosurgery with 18 GY to a lesion on the right temporal lobe, in a single fracture. On July 21, 2016 he received with additional 30 GY to the left temporal lobe lesion. His prior CT of the chest has shown a cavitary mass on the right pulmonary apex, as well as evidence of pulmonary emboli. He was anticoagulated with Xarelto for his PE. He has a history of treatment with carboplatin/ALI MTA chemotherapy. The carboplatin was stopped on December 2016 due to hearing loss. Mr Wilson presents to [facility] for urgent evaluation. He suffered altered mental status. The patient is unable to provide much history. He underwent a scan at [facility] which was reported as having a new brain metastases in the right side with surrounding hemorrhage. Patient is on xarelto. No seizures. No tongue biting. No tonic-clonic movement seen. No incontinence of stool or urine. He was moving all 4 extremities. Transferred to [facility] and a neurosurgical consultation was requested 05/21. An MRI brain was completed. he is alert, awake, following commands 05/22: 56-year-old male with history of metastatic lung cancer to the brain. He has received previous whole brain radiation with radiosurgery to right and left temporal lesions. More recent craniotomy for resection of left temporal lesion January 2017. Presents now upon transfer from [facility] for mental status changes with possible new hemorrhage. Subsequent follow-up CT and MRI at [facility] revealed no definite significant intracranial hemorrhage or mass effect with no new brain lesions. 05/23: The patient is lethargic when seen this afternoon. He responded to light tactile stimulation of the upper extremity. He readily fell back to sleep and required coaxing to briefly interact. His voice was garbled and he spoke only two or three words which were incomprehensible. He did follow some commands but eventually bean the covers over his head. The nursing home assistant stated that the patient has been like this the whole day. (Ming Rahman) System Review Comments Unable to obtain due to patient's mental status. (Ming Rahman) Exam Results 05/21/17 05/21/17 05/22/17 05/22/17 05/23/17 05/23/17 06:00 18:00 06:00 18:00 06:00 18:00 Intake Total 120 ml 840 ml 100 ml 2970 ml 600 ml Output Total 400 ml 600 ml Balance -280 ml 840 ml 100 ml 2370 ml 600 ml Intake Oral 120 ml 1780 ml 600 ml IV Total 840 ml 100 ml 1190 ml Output Urine Total 400 ml 600 ml # Voids 4 4 # Bowel Movements 0 0 0 Vital Signs Date Time Temp Pulse Resp B/P (MAP) Pulse Ox O2 Delivery O2 Flow Rate FiO2 05/23/17 16:06 98.3 107 18 125/85 (98) 96 05/23/17 14:05 Room Air 05/23/17 12:00 100 05/23/17 11:41 98.6 108 18 111/65 (80) 91 05/23/17 08:02 97.9 102 18 108/73 (85) 93 05/23/17 08:00 105 05/23/17 05:50 98.3 100 18 129/78 (95) 94 05/23/17 04:39 Room Air 05/23/17 00:15 97.0 68 23 128/69 (88) 99 05/23/17 00:00 104 05/22/17 21:56 95 05/22/17 21:40 98.8 76 19 120/67 (84) 98 05/22/17 20:28 101 05/22/17 16:00 100 05/22/17 15:44 97.5 104 20 114/70 (85) 96 05/22/17 14:35 Room Air 05/22/17 12:00 107 05/22/17 11:38 99.2 98 20 112/71 (85) 98 05/22/17 08:00 97 05/22/17 07:36 97.6 98 20 115/78 (90) 95 05/22/17 05:15 98.8 99 18 110/80 (90) 95 05/22/17 04:06 106 05/22/17 02:53 95 05/22/17 00:40 99.8 102 18 134/77 (96) 94 05/22/17 00:10 102 05/21/17 20:45 Room Air 05/21/17 20:07 98.4 109 18 127/75 (92) 94 05/21/17 20:07 98 05/21/17 17:07 98.0 103 16 129/77 (94) 92 05/21/17 16:00 98.6 100 24 117/70 (86) 94 05/21/17 16:00 100 05/21/17 14:00 94 05/21/17 12:00 98.2 96 20 111/68 (82) 95 05/21/17 12:00 96 05/21/17 10:00 102 05/21/17 08:16 94 21 05/21/17 08:00 99.8 103 26 118/79 (92) 93 05/21/17 08:00 103 05/21/17 08:00 101 05/21/17 07:00 93 Room Air 05/21/17 06:00 94 05/21/17 04:00 98.6 93 23 106/73 (84) 96 05/21/17 04:00 93 05/21/17 02:00 88 05/21/17 00:00 82 05/21/17 00:00 99.4 82 22 108/64 (79) 94 05/20/17 22:00 103 05/20/17 20:43 95 21 05/20/17 20:00 95 Room Air 05/20/17 20:00 94 05/20/17 20:00 100.4 87 18 128/73 (91) 94 05/20/17 18:00 90 (Ming Rahman) Physical Examination GENERAL: Lethargic but responded to light tactile stimulation to the arm. Flat affect. Required coaxing in order to interact. No apparent distress. HEENT: Normocephalic, atraumatic. Unable to assess pupils due to patient's lack of cooperation. MUSCULOSKELETAL: Moves all extremities independently and to command. Tremors noted to upper extremities. NEUROLOGICAL: Lethargic but responded to light tactile stimulation. Voice garbled and incomprehensible. Spoke in 2 or 3 words sentences slowly. Moderate dysarthria. Unable to assess pupils do to lack of cooperation. Did follow some simple commands with all extremities but did not fully cooperate in order to assess motor strength. Tremors noted to both upper extremities. (Ming Rahman) Lab, Micro, Other Results Laboratory Tests Test 05/21/17 17:11 05/22/17 08:16 05/23/17 06:15 Potassium Level 3.8 MEQ/L 3.3 MEQ/L 3.2 MEQ/L Blood Urea Nitrogen 7 MG/DL 7 MG/DL Creatinine 0.53 MG/DL 0.51 MG/DL Random Glucose 69 MG/DL 82 MG/DL Total Protein 6.4 GM/DL Albumin 2.6 GM/DL Calcium Level 8.8 MG/DL 9.0 MG/DL Alkaline Phosphatase 101 U/L Aspartate Amino Transf (AST/SGOT) 26 U/L Alanine Aminotransferase (ALT/SGPT) 18 U/L Total Bilirubin 0.6 MG/DL Sodium Level 137 MEQ/L 134 MEQ/L Chloride Level 103 MEQ/L 100 MEQ/L Carbon Dioxide Level 23.0 MEQ/L 24.7 MEQ/L Anion Gap 11 MEQ/L 9 MEQ/L Estimat Glomerular Filtration Rate 196 ML/MIN 205 ML/MIN White Blood Count 7.6 TH/MM3 Red Blood Count 2.99 MIL/MM3 Hemoglobin 10.5 GM/DL Hematocrit 30.2 % Mean Corpuscular Volume 101.1 FL Mean Corpuscular Hemoglobin 35.2 PG Mean Corpuscular Hemoglobin Concent 34.8 % Red Cell Distribution Width 16.5 % Platelet Count 72 TH/MM3 Mean Platelet Volume 6.5 FL Magnesium Level 1.6 MG/DL (Ming Rahman) Medical Decision Making Impression and Plan Impression: 1. Most recent MRI of the brain during this admission reveals a relatively stable right temporal lobe partially enhancing lesion with an area of encephalomalacia with postoperative changes in the left temporal lobe. Some persistent edema. Recent altered mental status possibly related to seizure. The patient is lethargic when seen. He did respond to light tactile stimulation. Limited vocalisation that was incomprehensible. Followed some simple commands. Reluctant to cooperate and eventually bean covers over his head. Tachycardia. Reviewed labs for today. Mild anaemia. Thrombocytopenia. Sodium 134. Hypokalemia. Plan: Primary management per Hospitalist. Neurology following for seizures. Neuro checks. Stat CT brain for any decline in neuro status. Neurosurgical intervention not indicated at thisNeurology following for possible seizures Continuing anticonvulsants. May benefit from further inpatient rehabilitation. (Ming Rahman) Attending Statement The exam, history, and the medical decision-making described in the above note were completed with the assistance of the mid-level provider. I reviewed and agree with the findings presented. I attest that I had a [id number] encounter with the patient on the same day, and personally performed and documented my assessment and findings in the medical record. Patient's examination unchanged on 05/23/2017 versus prior exam. Remains with mild to moderate lethargy. Arouses to voice but not very willing to interact. Persistent moderate dysarthria-questionable baseline. Follow simple commands Medical and neurology notes reviewed as well as EEG report. No definite evidence of new cerebral lesion or hemorrhage on most recent imaging studies. Possible seizure activity. Remains on Keppra per neurology No neurosurgical intervention recommended at this time Stable for discharge from a neurosurgical standpoint with outpatient follow-up with neurosurgery and radiation/medical oncology. (Alex Wu MD) Ming Rahman May 23, 2017 17:20 Alex Wu MD May 23, 2017 21:12
--- NOTE | 2017-05-23 18:55 | HHI.PR ---
Subjective Remarks Patient denies any seizure activity Denies cp/sob Objective Vitals Vital Signs Date Time Temp Pulse Resp B/P (MAP) Pulse Ox O2 Delivery O2 Flow Rate FiO2 05/23/17 16:06 98.3 107 18 125/85 (98) 96 05/23/17 14:05 Room Air 05/23/17 12:00 100 05/23/17 11:41 98.6 108 18 111/65 (80) 91 05/23/17 08:02 97.9 102 18 108/73 (85) 93 05/23/17 08:00 105 05/23/17 05:50 98.3 100 18 129/78 (95) 94 05/23/17 04:39 Room Air 05/23/17 00:15 97.0 68 23 128/69 (88) 99 05/23/17 00:00 104 05/22/17 21:56 95 05/22/17 21:40 98.8 76 19 120/67 (84) 98 05/22/17 20:28 101 I/O 05/22/17 05/22/17 05/22/17 05/23/17 05/23/17 05/23/17 06:59 14:59 22:59 06:59 14:59 22:59 Intake Total 100 ml 1425 ml 1545 ml 600 ml Output Total 600 ml Balance 100 ml 825 ml 1545 ml 600 ml Intake Oral 880 ml 900 ml 600 ml IV Total 100 ml 545 ml 645 ml Output Urine Total 600 ml # Voids 4 4 # Bowel Movements 0 0 0 Result Diagram: 05/23/17 0615 05/23/17 0615 Imaging Last Impressions Head CT 05/20/17 0000 Signed Impressions: Service Date/Time: Saturday, May 20, 2017 09:29 - CONCLUSION: Left temporal encephalomalacia defect with significant fluid herniating out of the craniotomy defect. No evidence of acute hemorrhage or acute process. Rick Rojas MD Brain MRI 05/20/17 0000 Signed Impressions: Service Date/Time: Saturday, May 20, 2017 16:57 - CONCLUSION: Enhancing lesion in the right temporal region and postoperative changes left temporal lobe with mild peripheral enhancement seen. Bret Rawls MD Objective Remarks Gen: Appears comfortable not in any acute distress Head: Atraumatic. Neck: Supple, airway widely patent. Lungs: Clear to auscultation bilaterally. Heart: RRR, No JVD. Abdomen: Soft, no guarding. No tenderness. Extremities: Warm, well perfused. Neuro: Moves 4 limbs to command. Hand grasps 5/5 on left upper extremity, strength 4/5 on right upper and lower extremity. EOMs intact. Speech clear but difficulty finding words. Psych: Mood and affect appropriate. Medications and IVs Current Medications Medications (Trade) Dose Ordered Sig/Bruce Route Start Time Stop Time Status Last Admin (Tylenol) 650 mg Q6H PRN PO 05/20/17 09:00 05/20/17 22:48 (Morphine Inj) 2 mg Q2H PRN IV PUSH 05/20/17 09:00 05/23/17 10:38 (Pepcid Inj) 20 mg Q12HR IV PUSH 05/20/17 09:00 05/23/17 08:16 (Zofran Inj) 4 mg Q6H PRN IV PUSH 05/20/17 09:00 Miscellaneous Information 1 Q361D XX 05/20/17 09:00 05/20/17 09:00 (Chlorhexidine 2% Cloth) 3 pack Taper DAILY@04 TOP 05/21/17 04:00 05/17/18 03:59 05/21/17 04:00 (Chlorhexidine 2% Cloth) 3 pack UNSCH PRN TOP 05/20/17 09:00 (Jaqui-Colace) 1 tab BID PO 05/20/17 09:00 05/23/17 08:21 (Milk Of Magnesia Liq) 30 ml Q12H PRN PO 05/20/17 09:00 (Senokot) 17.2 mg Q12H PRN PO 05/20/17 09:00 (Dulcolax Supp) 10 mg DAILY PRN RECTAL 05/20/17 09:00 (Lactulose Liq) 30 ml DAILY PRN PO 05/20/17 09:00 Levetriacetam 500 mg/Sodium Chloride 105 ml @ 420 mls/hr Q12HR IV 05/20/17 09:00 05/23/17 08:13 (KCl) 30 meq ONCE ONCE PO 05/23/17 19:00 05/23/17 19:01 UNV A/P Assessment and Plan ntracranial hemorrhage/ Lung cancer metastatic to brain, new metastases to the right temporal lobe MRI shows right temporal metastasis. Neurosurgery consult appreciated. - Maintain SBP < 140. - HOB up. - follow up with neurosurgery. - Marvinppra for seizure prophylaxis. - No indication for Decadron at this time. - PT/ OT/ ST. 05/23 No indication for surgical intervention at this point. Hypokalemia Potassium level 3.2 - replete and monitor. Hypoglycemia Likely secondary to decreased by mouth intake. - D5 normal saline. - Add Ensure to meals. - Monitor BMP. 05/23 DC IV fluids. Monitor accuchecks PPx: SCDs Discharge Planning Dc pending neurology clearance - DC in am. Sigifredo Stern MD May 23, 2017 18:55
[2017-05-23] MEDS ORDERED: POTASSIUM CHLORIDE 10 MEQ CONTROLLED RELEASE TAB PO ONE (19:00)
[2017-05-24] VITALS (10 sets, daily range): BP systolic 118–131; BP diastolic 66–89; PULSE 68–107; RESP 17–20; TEMP 97.8–98.2; O2SAT 91–97
[2017-05-24] MEDS: CHLORHEXIDINE GLUCONATE 2 % 1 PACK (2 CLOTHS) TOP SCH (04:00)
[2017-05-24] MEDS: FAMOTIDINE 20 MG/2 ML VIAL IV PUSH SCH ×2 (09:21→21:54)
[2017-05-24] MEDS: DOCUSATE SODIUM 50 MG/SENNA 8.6 MG TAB PO SCH ×2 (09:22→21:00)
[2017-05-24] MEDS: levETIRAcetam INJ 500 MG in SODIUM CHLORIDE 0.9% INJ 100 ML IV SCH ×2 (09:22→21:54)
[2017-05-24 11:39] LABS: AUTOMATED NEUTROPHIL # 7.5 TH/MM3 (1.8-7.7); BASOPHIL # 0.1 TH/MM3 (0-0.2); BASOPHIL % 0.6 % (0.0-2.0); EOSINOPHIL # 0.1 TH/MM3 (0-0.4); EOSINOPHIL % 0.7 % (0.0-4.0); HEMATOCRIT 27.5 % (39.0-51.0); HEMOGLOBIN 9.5 GM/DL (13.0-17.0); LYMPH % 10.1 % (9.0-44.0); LYMPHOCYTE # 0.9 TH/MM3 (1.0-4.8); MEAN CELL VOLUME 101.1 FL (80.0-100.0); MEAN CORPUSCULAR HGB CONC 34.7 % (32.0-36.0); MEAN PLATELET VOLUME 6.9 FL (7.0-11.0); MONO % 3.8 % (0.0-8.0); MONOCYTE # 0.3 TH/MM3 (0-0.9); NEUT % 84.8 % (16.0-70.0); PLATELET COUNT 78 TH/MM3 (150-450); RED BLOOD COUNT 2.72 MIL/MM3 (4.50-5.90); RED CELL DISTRIBUTION WIDTH 16.6 % (11.6-17.2); WHITE BLOOD COUNT 8.8 TH/MM3 (4.0-11.0)
[2017-05-24 12:00] LABS: ALBUMIN 2.5 GM/DL (3.4-5.0); AST (GOT) 19 U/L (15-37); BICARBONATE 24.3 MEQ/L (21.0-32.0); BLOOD UREA NITROGEN 9 MG/DL (7-18); CALCIUM 8.5 MG/DL (8.5-10.1); CHLORIDE 101 MEQ/L (98-107); CREATININE 0.52 MG/DL (0.60-1.30); GLOMERULAR FILTRATION RATE 201 ML/MIN (>89); GLUCOSE,RANDOM 69 MG/DL (74-106); MAGNESIUM 1.5 MG/DL (1.5-2.5); SODIUM (NA) 137 MEQ/L (136-145)
[2017-05-24 12:03] LABS: ALKALINE PHOSPHATASE 140 U/L (45-117); ALT (GPT) 20 U/L (12-78); PHOSPHORUS 3.5 MG/DL (2.5-4.9); TOTAL BILIRUBIN ADULT 0.6 MG/DL (0.2-1.0); TOTAL PROTEIN 6.8 GM/DL (6.4-8.2)
[2017-05-24] MEDS: POTASSIUM CHLORIDE 10 MEQ CONTROLLED RELEASE TAB PO ONE ×2 (12:15→14:45)
[2017-05-24 12:22] LABS: BANDS 19 % (0-6); KERATOCYTES OCC (NORMAL); LYMPHOCYTES 7 % (9-44); MONOCYTES 5 % (0-8); MYELOCYTES 3 % (0-0); NEUTROPHIL # MANUAL DIFF 7.7 TH/MM3 (1.8-7.7); POLYS (SEG NEUTROPHILS) 66 % (16-70); TOXIC GRANULATION 1+ (NORMAL); TOXIC VACUOLATION PRESENT (NONE SEEN)
--- NOTE | 2017-05-24 14:55 | HHI.NSPN ---
(LaceyMing) History Chief Complaint: Unable to obtain due to patient's mental status. (LaceyMing) Interval History 05/20: This is 56 y/o right handed man s/p resection left temporal lobe metastatic brain lesion from right upper lobe primary in January 2017. He has undergone palliative whole brain radiation therapy is on Keytruda on May 2016. On July 19, 2016 he received additional radiosurgery with 18 GY to a lesion on the right temporal lobe, in a single fracture. On July 21, 2016 he received with additional 30 GY to the left temporal lobe lesion. His prior CT of the chest has shown a cavitary mass on the right pulmonary apex, as well as evidence of pulmonary emboli. He was anticoagulated with Xarelto for his PE. He has a history of treatment with carboplatin/ALI MTA chemotherapy. The carboplatin was stopped on December 2016 due to hearing loss. Mr Wilson presents to [facility] for urgent evaluation. He suffered altered mental status. The patient is unable to provide much history. He underwent a scan at [facility] which was reported as having a new brain metastases in the right side with surrounding hemorrhage. Patient is on xarelto. No seizures. No tongue biting. No tonic-clonic movement seen. No incontinence of stool or urine. He was moving all 4 extremities. Transferred to [facility] and a neurosurgical consultation was requested 05/21. An MRI brain was completed. he is alert, awake, following commands 05/22: 56-year-old male with history of metastatic lung cancer to the brain. He has received previous whole brain radiation with radiosurgery to right and left temporal lesions. More recent craniotomy for resection of left temporal lesion January 2017. Presents now upon transfer from [facility] for mental status changes with possible new hemorrhage. Subsequent follow-up CT and MRI at [facility] revealed no definite significant intracranial hemorrhage or mass effect with no new brain lesions. 05/23: The patient is lethargic when seen this afternoon. He responded to light tactile stimulation of the upper extremity. He readily fell back to sleep and required coaxing to briefly interact. His voice was garbled and he spoke only two or three words which were incomprehensible. He did follow some commands but eventually bean the covers over his head. The nursing care partner stated that the patient has been like this the whole day. 05/24: The patient is awake and alert when seen this afternoon. He verbalises in a few words which are mostly garbled and incomprehensible. He does follow some commands approximately. (Ming Rahman) System Review Comments Unable to obtain due to patient's mental status. (Ming Rahman) Exam Results 05/22/17 05/22/17 05/23/17 05/23/17 05/24/17 05/24/17 06:00 18:00 06:00 18:00 06:00 18:00 Intake Total 100 ml 2970 ml 600 ml 677 ml Output Total 600 ml 200 ml 150 ml Balance 100 ml 2370 ml 600 ml 477 ml -150 ml Intake Oral 1780 ml 600 ml 677 ml IV Total 100 ml 1190 ml Output Urine Total 600 ml 200 ml 150 ml # Voids 4 4 4 1 # Bowel Movements 0 0 0 Vital Signs Date Time Temp Pulse Resp B/P (MAP) Pulse Ox O2 Delivery O2 Flow Rate FiO2 05/24/17 13:43 Room Air 05/24/17 12:13 98.2 106 17 125/76 (92) 91 05/24/17 12:00 107 05/24/17 08:16 98.1 98 17 126/81 (96) 91 05/24/17 08:00 105 05/24/17 05:00 103 05/24/17 04:30 98.0 68 19 120/89 (99) 97 05/24/17 00:05 97.8 95 18 131/66 (87) 93 05/23/17 22:20 Room Air 05/23/17 21:54 21 05/23/17 21:45 98.3 67 18 123/78 (93) 98 05/23/17 16:06 98.3 107 18 125/85 (98) 96 05/23/17 14:05 Room Air 05/23/17 12:00 100 05/23/17 11:41 98.6 108 18 111/65 (80) 91 05/23/17 08:02 97.9 102 18 108/73 (85) 93 05/23/17 08:00 105 05/23/17 05:50 98.3 100 18 129/78 (95) 94 05/23/17 04:39 Room Air 05/23/17 00:15 97.0 68 23 128/69 (88) 99 05/23/17 00:00 104 05/22/17 21:56 95 05/22/17 21:40 98.8 76 19 120/67 (84) 98 05/22/17 20:28 101 05/22/17 16:00 100 05/22/17 15:44 97.5 104 20 114/70 (85) 96 05/22/17 14:35 Room Air 05/22/17 12:00 107 05/22/17 11:38 99.2 98 20 112/71 (85) 98 05/22/17 08:00 97 05/22/17 07:36 97.6 98 20 115/78 (90) 95 05/22/17 05:15 98.8 99 18 110/80 (90) 95 05/22/17 04:06 106 05/22/17 02:53 95 05/22/17 00:40 99.8 102 18 134/77 (96) 94 05/22/17 00:10 102 05/21/17 20:45 Room Air 05/21/17 20:07 98.4 109 18 127/75 (92) 94 05/21/17 20:07 98 05/21/17 17:07 98.0 103 16 129/77 (94) 92 05/21/17 16:00 98.6 100 24 117/70 (86) 94 05/21/17 16:00 100 (Ming Rahman) Physical Examination GENERAL: Awake & alert. Flat affect. Interacts readily. No apparent distress. HEENT: Normocephalic, atraumatic. PERRLA 2 mm reactive. Mucous membranes tacky, tongue midline to protrusion. MUSCULOSKELETAL: Moves all extremities independently and to command. Tremors noted to upper extremities. NEUROLOGICAL: Awake & alert. Voice garbled and essentially incomprehensible. Speaks with a few words. Moderate dysarthria. PERRLA 2 mm reactive. Tongue midline to protrusion. Did follow some simple commands with all extremities but did not fully cooperate in order to assess motor strength. Tremors noted to both upper extremities. (Ming Rahman) Lab, Micro, Other Results Laboratory Tests Test 05/21/17 17:11 05/22/17 08:16 05/23/17 06:15 05/24/17 11:15 Potassium Level 3.8 MEQ/L 3.3 MEQ/L 3.2 MEQ/L 3.4 MEQ/L Blood Urea Nitrogen 7 MG/DL 7 MG/DL 9 MG/DL Creatinine 0.53 MG/DL 0.51 MG/DL 0.52 MG/DL Random Glucose 69 MG/DL 82 MG/DL 69 MG/DL Total Protein 6.4 GM/DL 6.8 GM/DL Albumin 2.6 GM/DL 2.5 GM/DL Calcium Level 8.8 MG/DL 9.0 MG/DL 8.5 MG/DL Alkaline Phosphatase 101 U/L 140 U/L Aspartate Amino Transf (AST/SGOT) 26 U/L 19 U/L Alanine Aminotransferase (ALT/SGPT) 18 U/L 20 U/L Total Bilirubin 0.6 MG/DL 0.6 MG/DL Sodium Level 137 MEQ/L 134 MEQ/L 137 MEQ/L Chloride Level 103 MEQ/L 100 MEQ/L 101 MEQ/L Carbon Dioxide Level 23.0 MEQ/L 24.7 MEQ/L 24.3 MEQ/L Anion Gap 11 MEQ/L 9 MEQ/L 12 MEQ/L Estimat Glomerular Filtration Rate 196 ML/MIN 205 ML/MIN 201 ML/MIN White Blood Count 7.6 TH/MM3 8.8 TH/MM3 Red Blood Count 2.99 MIL/MM3 2.72 MIL/MM3 Hemoglobin 10.5 GM/DL 9.5 GM/DL Hematocrit 30.2 % 27.5 % Mean Corpuscular Volume 101.1 FL 101.1 FL Mean Corpuscular Hemoglobin 35.2 PG 35.0 PG Mean Corpuscular Hemoglobin Concent 34.8 % 34.7 % Red Cell Distribution Width 16.5 % 16.6 % Platelet Count 72 TH/MM3 78 TH/MM3 Mean Platelet Volume 6.5 FL 6.9 FL Magnesium Level 1.6 MG/DL 1.5 MG/DL Neutrophils (%) (Auto) 84.8 % Lymphocytes (%) (Auto) 10.1 % Monocytes (%) (Auto) 3.8 % Eosinophils (%) (Auto) 0.7 % Basophils (%) (Auto) 0.6 % Neutrophils # (Auto) 7.5 TH/MM3 Lymphocytes # (Auto) 0.9 TH/MM3 Monocytes # (Auto) 0.3 TH/MM3 Eosinophils # (Auto) 0.1 TH/MM3 Basophils # (Auto) 0.1 TH/MM3 CBC Comment AUTO DIFF Differential Total Cells Counted 100 Neutrophils % (Manual) 66 % Band Neutrophils % 19 % Lymphocytes % 7 % Monocytes % 5 % Neutrophils # (Manual) 7.7 TH/MM3 Myelocytes 3 % Differential Comment FINAL DIFF MANUAL Toxic Granulation 1+ Toxic Vacuolation PRESENT Platelet Estimate LOW Platelet Morphology Comment NORMAL Keratocytes OCC Phosphorus Level 3.5 MG/DL (Ming Rahman) Medical Decision Making Impression and Plan Impression: 1. Most recent MRI of the brain during this admission reveals a relatively stable right temporal lobe partially enhancing lesion with an area of encephalomalacia with postoperative changes in the left temporal lobe. Some persistent edema. Recent altered mental status possibly related to seizure. The patient is more awake & alert today, readily interacts. Vocalising w/a few words that are garbled and essentially incomprehensible. Followed some simple commands appropriately. Tachycardia. Reviewed labs for today. Interval drop in haemoglobin level. Slight improvement in thrombocytopenia. Sodium 137. Slight improvement in hypokalemia. Elevated alk phos. Plan: Primary management per Hospitalist. Neurology following for seizures. Neuro checks. Stat CT brain for any decline in neuro status. Neurosurgical intervention not indicated at this time. Continuing anticonvulsants. May benefit from further inpatient rehabilitation. (Ming Rahman) Attending Statement The exam, history, and the medical decision-making described in the above note were completed with the assistance of the mid-level provider. I reviewed and agree with the findings presented. I attest that I had a [id number] encounter with the patient on the same day, and personally performed and documented my assessment and findings in the medical record. A little more alert and responsive on my examination of 05/24/2017. Maintenance was significant dysarthria-probable normal baseline. Continuing therapy No neurosurgical intervention anticipated at this time. No definite new lesions noted on recent imaging studies. Stable for rehabilitation from neurosurgical standpoint (Alex Wu MD) Ming Rahman May 24, 2017 14:55 Alex Wu MD May 24, 2017 20:36
--- NOTE | 2017-05-24 16:15 | HHI.PR ---
Subjective Remarks K low. Patient denies any seizure episodes. Denies chest pain or shortness of breath. Denies headache. As per RN, confused at times. Objective Vitals Vital Signs Date Time Temp Pulse Resp B/P (MAP) Pulse Ox O2 Delivery O2 Flow Rate FiO2 05/24/17 16:02 98.2 97 17 120/80 (93) 93 05/24/17 13:43 Room Air 05/24/17 12:13 98.2 106 17 125/76 (92) 91 05/24/17 12:00 107 05/24/17 08:16 98.1 98 17 126/81 (96) 91 05/24/17 08:00 105 05/24/17 05:00 103 05/24/17 04:30 98.0 68 19 120/89 (99) 97 05/24/17 00:05 97.8 95 18 131/66 (87) 93 05/23/17 22:20 Room Air 05/23/17 21:54 21 05/23/17 21:45 98.3 67 18 123/78 (93) 98 I/O 05/23/17 05/23/17 05/23/17 05/24/17 05/24/17 05/24/17 07:00 15:00 23:00 07:00 15:00 23:00 Intake Total 1545 ml 602 ml 675 ml 480 ml Output Total 200 ml 150 ml Balance 1545 ml 402 ml 675 ml -150 ml 480 ml Intake Oral 900 ml 602 ml 675 ml 480 ml IV Total 645 ml Output Urine Total 200 ml 150 ml # Voids 4 4 4 1 # Bowel Movements 0 0 0 Result Diagram: 05/24/17 1115 05/24/17 1115 Imaging Last Impressions Head CT 05/20/17 0000 Signed Impressions: Service Date/Time: Saturday, May 20, 2017 09:29 - CONCLUSION: Left temporal encephalomalacia defect with significant fluid herniating out of the craniotomy defect. No evidence of acute hemorrhage or acute process. Rick Rojas MD Brain MRI 05/20/17 0000 Signed Impressions: Service Date/Time: Saturday, May 20, 2017 16:57 - CONCLUSION: Enhancing lesion in the right temporal region and postoperative changes left temporal lobe with mild peripheral enhancement seen. Bret Rawls MD Objective Remarks Gen: Appears comfortable not in any acute distress Head: Atraumatic. Neck: Supple, airway widely patent. Lungs: Clear to auscultation bilaterally. Heart: RRR, No JVD. Abdomen: Soft, no guarding. No tenderness. Extremities: Warm, well perfused. Neuro: Moves 4 limbs to command. Hand grasps 5/5 on left upper extremity, strength 4/5 on right upper and lower extremity. EOMs intact. Speech clear but difficulty finding words. Psych: Mood and affect appropriate. Medications and IVs Current Medications Medications (Trade) Dose Ordered Sig/Bruce Route Start Time Stop Time Status Last Admin (Tylenol) 650 mg Q6H PRN PO 05/20/17 09:00 05/20/17 22:48 (Morphine Inj) 2 mg Q2H PRN IV PUSH 05/20/17 09:00 05/23/17 10:38 (Pepcid Inj) 20 mg Q12HR IV PUSH 05/20/17 09:00 05/24/17 09:21 (Zofran Inj) 4 mg Q6H PRN IV PUSH 05/20/17 09:00 Miscellaneous Information 1 Q361D XX 05/20/17 09:00 05/20/17 09:00 (Chlorhexidine 2% Cloth) 3 pack Taper DAILY@04 TOP 05/21/17 04:00 05/17/18 03:59 05/21/17 04:00 (Chlorhexidine 2% Cloth) 3 pack UNSCH PRN TOP 05/20/17 09:00 (Jaqui-Colace) 1 tab BID PO 05/20/17 09:00 05/24/17 09:22 (Milk Of Magnesia Liq) 30 ml Q12H PRN PO 05/20/17 09:00 (Senokot) 17.2 mg Q12H PRN PO 05/20/17 09:00 (Dulcolax Supp) 10 mg DAILY PRN RECTAL 05/20/17 09:00 (Lactulose Liq) 30 ml DAILY PRN PO 05/20/17 09:00 Levetriacetam 500 mg/Sodium Chloride 105 ml @ 420 mls/hr Q12HR IV 05/20/17 09:00 05/24/17 09:22 A/P Problem List: (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 Neurosurgery consult appreciated. - Maintain SBP < 140. - HOB up. - follow up with neurosurgery. - Keppra for seizure prophylaxis. - No indication for Decadron at this time. - PT/ OT/ ST. 05/23 No indication for surgical intervention at this point. Hypokalemia Potassium level 3.4 - replete and monitor. Hypoglycemia Likely secondary to decreased by mouth intake. - D5 normal saline. - Add Ensure to meals. - Monitor BMP. 05/23 DC IV fluids. Monitor accuchecks PPx: SCDs Discharge Planning Patient is not a safe discharge due to weakness. The patient cannot be discharged to a rehab facility given that he is on house arrest. Discussed with high risk case manager. Will order PT for 7 days a week. Sigifredo Stern MD May 24, 2017 16:15
[2017-05-25] VITALS (7 sets, daily range): BP systolic 118–127; BP diastolic 78–89; PULSE 102–112; RESP 17–18; TEMP 97.1–98.6; O2SAT 91–95
[2017-05-25] MEDS: CHLORHEXIDINE GLUCONATE 2 % 1 PACK (2 CLOTHS) TOP SCH (04:00)
[2017-05-25] MEDS: FAMOTIDINE 20 MG/2 ML VIAL IV PUSH SCH ×2 (08:25→22:28)
[2017-05-25] MEDS: levETIRAcetam INJ 500 MG in SODIUM CHLORIDE 0.9% INJ 100 ML IV SCH ×2 (08:25→22:28)
[2017-05-25] MEDS: DOCUSATE SODIUM 50 MG/SENNA 8.6 MG TAB PO SCH ×2 (08:26→21:00)
[2017-05-25 10:00] LABS: BICARBONATE 25.8 MEQ/L (21.0-32.0); CREATININE 0.56 MG/DL (0.60-1.30)
--- NOTE | 2017-05-25 14:48 | HHI.PR ---
Subjective Remarks The patient denies any seizure episodes. The patient seems to be confused Patient is a febrile. Objective Vitals Vital Signs Date Time Temp Pulse Resp B/P (MAP) Pulse Ox O2 Delivery O2 Flow Rate FiO2 05/25/17 12:24 97.7 108 17 118/79 (92) 94 05/25/17 10:37 102 05/25/17 08:36 Room Air 05/25/17 08:05 97.1 103 17 124/78 (93) 94 05/25/17 04:51 97.8 107 18 127/81 (96) 93 05/25/17 04:51 109 05/25/17 00:49 98.6 105 18 126/89 (101) 95 05/24/17 23:51 94 05/24/17 22:10 95 Room Air 05/24/17 20:00 97.9 107 20 118/79 (92) 94 05/24/17 16:02 98.2 97 17 120/80 (93) 93 I/O 05/24/17 05/24/17 05/24/17 05/25/17 05/25/17 05/25/17 07:00 15:00 23:00 07:00 15:00 23:00 Intake Total 675 ml 580 ml Output Total 150 ml Balance 675 ml -150 ml 580 ml Intake Oral 675 ml 480 ml IV Total 100 ml Output Urine Total 150 ml # Voids 4 1 2 2 # Bowel Movements 0 1 Result Diagram: 05/24/17 1115 05/25/17 0853 Imaging Last Impressions Head CT 05/20/17 0000 Signed Impressions: Service Date/Time: Saturday, May 20, 2017 09:29 - CONCLUSION: Left temporal encephalomalacia defect with significant fluid herniating out of the craniotomy defect. No evidence of acute hemorrhage or acute process. Rick Rojas MD Brain MRI 05/20/17 0000 Signed Impressions: Service Date/Time: Saturday, May 20, 2017 16:57 - CONCLUSION: Enhancing lesion in the right temporal region and postoperative changes left temporal lobe with mild peripheral enhancement seen. Bret Rawls MD Objective Remarks Gen: Appears comfortable not in any acute distress, patient is confused Head: Atraumatic. Neck: Supple, airway widely patent. Lungs: Clear to auscultation bilaterally. Heart: RRR, No JVD. Abdomen: Soft, no guarding. No tenderness. Extremities: Warm, well perfused. Neuro: Moves 4 limbs to command. Hand grasps 5/5 on left upper extremity, strength 4/5 on right upper and lower extremity. EOMs intact. Speech clear but difficulty finding words. Awake and alert oriented to person only. Psych: Mood and affect appropriate. Procedures None Medications and IVs Current Medications Medications (Trade) Dose Ordered Sig/Bruce Route Start Time Stop Time Status Last Admin (Tylenol) 650 mg Q6H PRN PO 05/20/17 09:00 05/20/17 22:48 (Morphine Inj) 2 mg Q2H PRN IV PUSH 05/20/17 09:00 05/23/17 10:38 (Pepcid Inj) 20 mg Q12HR IV PUSH 05/20/17 09:00 05/25/17 08:25 (Zofran Inj) 4 mg Q6H PRN IV PUSH 05/20/17 09:00 Miscellaneous Information 1 Q361D XX 05/20/17 09:00 05/20/17 09:00 (Chlorhexidine 2% Cloth) 3 pack Taper DAILY@04 TOP 05/21/17 04:00 05/17/18 03:59 05/21/17 04:00 (Chlorhexidine 2% Cloth) 3 pack UNSCH PRN TOP 05/20/17 09:00 (Jaqui-Colace) 1 tab BID PO 05/20/17 09:00 05/25/17 08:26 (Milk Of Magnesia Liq) 30 ml Q12H PRN PO 05/20/17 09:00 (Senokot) 17.2 mg Q12H PRN PO 05/20/17 09:00 (Dulcolax Supp) 10 mg DAILY PRN RECTAL 05/20/17 09:00 (Lactulose Liq) 30 ml DAILY PRN PO 05/20/17 09:00 Levetriacetam 500 mg/Sodium Chloride 105 ml @ 420 mls/hr Q12HR IV 05/20/17 09:00 05/25/17 08:25 A/P Problem List: (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 Neurosurgery consult appreciated. - Maintain SBP < 140. - HOB up. - follow up with neurosurgery. - Keppra for seizure prophylaxis. - No indication for Decadron at this time. - PT/ OT/ ST. No indication for surgical intervention at this point. Hypokalemia 05/25 potassium level still low at 3.3. Continue to replace orally and monitor BMP. Hypoglycemia Likely secondary to decreased by mouth intake. - D5 normal saline. - Add Ensure to meals. - Monitor BMP. IV fluids discontinued on 05/23. 05/25 no episodes of hypoglycemia. Poor oral intake As per RN the patient is not eating much. Consult dietitian. Start the patient on Megace. PPx: SCDs Discharge Planning Patient is not a safe discharge due to weakness. The patient cannot be discharged to a rehab facility given that he is on house arrest. Discussed with correctional casework specialist. Will order PT for 7 days a week. Sigifredo Stern MD May 25, 2017 14:48
[2017-05-25] MEDS: MEGESTROL ACETATE SUSP 400 MG/10 ML CUP PO SCH (16:42)
[2017-05-26] VITALS (9 sets, daily range): BP systolic 120–135; BP diastolic 72–83; PULSE 101–110; RESP 18–20; TEMP 97.4–99.1; O2SAT 91–95
[2017-05-26] MEDS: CHLORHEXIDINE GLUCONATE 2 % 1 PACK (2 CLOTHS) TOP SCH (04:00)
[2017-05-26 07:56] LABS: HEMATOCRIT 29.1 % (39.0-51.0); HEMOGLOBIN 10.2 GM/DL (13.0-17.0); MEAN CELL VOLUME 100.4 FL (80.0-100.0); MEAN CORPUSCULAR HEMOGLOBIN 35.2 PG (27.0-34.0); MEAN CORPUSCULAR HGB CONC 35.1 % (32.0-36.0); MEAN PLATELET VOLUME 7.4 FL (7.0-11.0); PLATELET COUNT 79 TH/MM3 (150-450); RED CELL DISTRIBUTION WIDTH 16.6 % (11.6-17.2); WHITE BLOOD COUNT 8.2 TH/MM3 (4.0-11.0)
[2017-05-26 07:59] LABS: BICARBONATE 26.7 MEQ/L (21.0-32.0); CALCIUM 9.1 MG/DL (8.5-10.1); CREATININE 0.59 MG/DL (0.60-1.30); MAGNESIUM 1.9 MG/DL (1.5-2.5)
[2017-05-26 08:00] LABS: PHOSPHORUS 2.8 MG/DL (2.5-4.9)
[2017-05-26] MEDS: levETIRAcetam INJ 500 MG in SODIUM CHLORIDE 0.9% INJ 100 ML IV SCH ×2 (08:17→22:36)
[2017-05-26] MEDS: MEGESTROL ACETATE SUSP 400 MG/10 ML CUP PO SCH (08:22)
[2017-05-26] MEDS: FAMOTIDINE 20 MG/2 ML VIAL IV PUSH SCH ×2 (08:22→22:37)
[2017-05-26] MEDS: DOCUSATE SODIUM 50 MG/SENNA 8.6 MG TAB PO SCH ×2 (08:31→22:35)
--- NOTE | 2017-05-26 12:29 | HHI.PR ---
Subjective Remarks FAMILY WANTS HOSPICE INVOLVED WILL MAKE SURE PALLIATIVE CARE IS INVOLVED IF NOT ON THE CASE YET NO CURRENT COMPLAINTS DW RN AND PT PT AND OT TO EVAL DIFFICULT PLACEMENT ISSUE DUE TO ANKLE MONITOR IN PLACE Objective Vitals Vital Signs Date Time Temp Pulse Resp B/P (MAP) Pulse Ox O2 Delivery O2 Flow Rate FiO2 05/26/17 09:21 104 05/26/17 08:33 Room Air 05/26/17 08:00 98.9 101 18 120/83 (95) 91 05/26/17 04:00 110 05/26/17 04:00 98.4 109 20 131/72 (91) 92 05/26/17 00:00 108 05/26/17 00:00 97.4 102 18 124/72 (89) 92 05/25/17 20:13 Room Air 05/25/17 20:00 97.5 109 18 125/78 (94) 91 05/25/17 20:00 112 05/25/17 17:17 97.8 103 17 118/80 (93) 94 05/25/17 12:24 97.7 108 17 118/79 (92) 94 I/O 05/25/17 05/25/17 05/25/17 05/26/17 05/26/17 05/26/17 06:59 14:59 22:59 06:59 14:59 22:59 Intake Total 240 ml Balance 240 ml Intake Oral 240 ml # Voids 2 2 3 # Bowel Movements 1 Result Diagram: 05/26/17 0608 05/26/17 0608 Other Results Laboratory Tests Test 05/24/17 11:15 05/25/17 08:53 05/26/17 06:08 White Blood Count 8.8 TH/MM3 8.2 TH/MM3 Red Blood Count 2.72 MIL/MM3 2.90 MIL/MM3 Hemoglobin 9.5 GM/DL 10.2 GM/DL Hematocrit 27.5 % 29.1 % Mean Corpuscular Volume 101.1 FL 100.4 FL Mean Corpuscular Hemoglobin 35.0 PG 35.2 PG Mean Corpuscular Hemoglobin Concent 34.7 % 35.1 % Red Cell Distribution Width 16.6 % 16.6 % Platelet Count 78 TH/MM3 79 TH/MM3 Mean Platelet Volume 6.9 FL 7.4 FL Neutrophils (%) (Auto) 84.8 % Lymphocytes (%) (Auto) 10.1 % Monocytes (%) (Auto) 3.8 % Eosinophils (%) (Auto) 0.7 % Basophils (%) (Auto) 0.6 % Neutrophils # (Auto) 7.5 TH/MM3 Lymphocytes # (Auto) 0.9 TH/MM3 Monocytes # (Auto) 0.3 TH/MM3 Eosinophils # (Auto) 0.1 TH/MM3 Basophils # (Auto) 0.1 TH/MM3 CBC Comment AUTO DIFF Differential Total Cells Counted 100 Neutrophils % (Manual) 66 % Band Neutrophils % 19 % Lymphocytes % 7 % Monocytes % 5 % Neutrophils # (Manual) 7.7 TH/MM3 Myelocytes 3 % Differential Comment FINAL DIFF MANUAL Toxic Granulation 1+ Toxic Vacuolation PRESENT Platelet Estimate LOW Platelet Morphology Comment NORMAL Keratocytes OCC Blood Urea Nitrogen 9 MG/DL 12 MG/DL 13 MG/DL Creatinine 0.52 MG/DL 0.56 MG/DL 0.59 MG/DL Random Glucose 69 MG/DL 71 MG/DL 98 MG/DL Total Protein 6.8 GM/DL Albumin 2.5 GM/DL Calcium Level 8.5 MG/DL 9.0 MG/DL 9.1 MG/DL Phosphorus Level 3.5 MG/DL 2.8 MG/DL Magnesium Level 1.5 MG/DL 1.9 MG/DL Alkaline Phosphatase 140 U/L Aspartate Amino Transf (AST/SGOT) 19 U/L Alanine Aminotransferase (ALT/SGPT) 20 U/L Total Bilirubin 0.6 MG/DL Sodium Level 137 MEQ/L 135 MEQ/L 140 MEQ/L Potassium Level 3.4 MEQ/L 3.3 MEQ/L 3.3 MEQ/L Chloride Level 101 MEQ/L 100 MEQ/L 103 MEQ/L Carbon Dioxide Level 24.3 MEQ/L 25.8 MEQ/L 26.7 MEQ/L Anion Gap 12 MEQ/L 9 MEQ/L 10 MEQ/L Estimat Glomerular Filtration Rate 201 ML/MIN 184 ML/MIN 173 ML/MIN Imaging Last Impressions Head CT 05/20/17 0000 Signed Impressions: Service Date/Time: Saturday, May 20, 2017 09:29 - CONCLUSION: Left temporal encephalomalacia defect with significant fluid herniating out of the craniotomy defect. No evidence of acute hemorrhage or acute process. Rick Rojas MD Brain MRI 05/20/17 0000 Signed Impressions: Service Date/Time: Saturday, May 20, 2017 16:57 - CONCLUSION: Enhancing lesion in the right temporal region and postoperative changes left temporal lobe with mild peripheral enhancement seen. Bret Rawls MD Objective Remarks Gen: Appears comfortable not in any acute distress, patient is confused-- quite aphasic at this time Head: Atraumatic. PERRLA EOMI TONGUE MIDLINE Neck: Supple, airway widely patent. Lungs: Clear to auscultation bilaterally. Heart: RRR, No JVD.S1, S2 NO S3 OR S4 Abdomen: Soft, no guarding. No tenderness. Extremities: Warm, well perfused. No clubbing or cyanosis or edema has right lower extremity police monitor in place Neuro: Moves 4 limbs to command. Hand grasps 5/5 on left upper extremity, strength 4/5 on right upper and lower extremity. EOMIs intact. Speech clear but difficulty finding words. Awake and alert oriented to person only. Psych: Mood and affect appropriate. Procedures None Medications and IVs Current Medications Sodium Chloride 1,000 ml @ 50 mls/hr Q20H IV Last administered on 05/23/17 04: 54; Start 05/20/17 at 09:00; Stop 05/23/17 at 18:53; Status DC Acetaminophen (Tylenol) 650 mg Q6H PRN PO PAIN 1-10 AND/OR FEVER >101F Last administered on 05/20/17at 22:48; Start 05/20/17 at 09:00 Morphine Sulfate (Morphine Inj) 2 mg Q2H PRN IV PUSH PAIN SCALE 6 TO 10 Last administered on 05/23/17at 10:38; Start 05/20/17 at 09:00 Famotidine (Pepcid Inj) 20 mg Q12HR IV PUSH Last administered on 05/26/17at 08:22 ; Start 05/20/17 at 09:00 Ondansetron HCl (Zofran Inj) 4 mg Q6H PRN IV PUSH NAUSEA OR VOMITING; Start 05/20/17 at 09:00 Miscellaneous Information 1 Q361D XX Last administered on 05/20/17at 09:00; Start 05/20/17 at 09:00 Chlorhexidine Gluconate (Chlorhexidine 2% Cloth) Taper DAILY@04 TOP Last administered on 05/21/17at 04:00; Start 05/21/17 at 04:00; Stop 05/17/18 at 03:59 Chlorhexidine Gluconate (Chlorhexidine 2% Cloth) 3 pack UNSCH PRN TOP HYGIENIC CARE; Start 05/20/17 at 09:00 Senna/Docusate Sodium (Jaqui-Colace) 1 tab BID PO Last administered on 05/26/17at 08:31; Start 05/20/17 at 09:00 Magnesium Hydroxide (Milk Of Magnesia Liq) 30 ml Q12H PRN PO Mild constipation ; Start 05/20/17 at 09:00 Sennosides (Senokot) 17.2 mg Q12H PRN PO Moderate constipation; Start 05/20/17 at 09:00 Bisacodyl (Dulcolax Supp) 10 mg DAILY PRN RECTAL SEVERE CONSITIPATION; Start at 09:00 Lactulose (Lactulose Liq) 30 ml DAILY PRN PO SEVERE CONSITIPATION; Start at 09:00 Levetriacetam 500 mg/Sodium Chloride 105 ml @ 420 mls/hr Q12HR IV Last administered on 05/26/17at 08:17; Start 05/20/17 at 09:00 Gadodiamide (Omniscan Pf Inj) 15 ml STK-MED ONCE IVCONTRAST Last administered on 05/20/17at 17:17; Start 05/20/17 at 17:17; Stop 05/20/17 at 17:18; Status DC Potassium Chloride 100 ml @ 50 mls/hr Q2H PRN IV For Potassium 2.8 - 3.2 mEq/L ; Start 05/21/17 at 06:00; Stop 05/21/17 at 16:52; Status DC Potassium Chloride 100 ml @ 50 mls/hr Q2H PRN IV For Potassium 2.8 - 3.2 mEq/ L Last administered on 05/21/17at 14:35; Start 05/21/17 at 06:00; Stop 05/21/17 at 16:52; Status DC Potassium Bicarb/ Potassium Chloride (K-Lyte Cl Eff) 50 meq UNSCH PRN PO For Potassium 3.3 - 3.5 mEq/L; Start 05/21/17 at 06:00; Stop 05/21/17 at 16:52; Status DC Potassium Chloride 100 ml @ 25 mls/hr UNSCH PRN IV For Potassium 3.3 - 3.5 mEq /L; Start 05/21/17 at 06:00; Stop 05/21/17 at 16:52; Status DC Potassium Chloride 100 ml @ 50 mls/hr Q2H PRN IV For Potassium 3.3 - 3.5 mEq/L ; Start 05/21/17 at 06:00; Stop 05/21/17 at 16:52; Status DC Magnesium Sulfate 4 gm/Sodium Chloride 100 ml @ 50 mls/hr UNSCH PRN IV For Magnesium 0.9 - 1.1 mg/dL; Start 05/21/17 at 06:00; Stop 05/21/17 at 16:52; Status DC Magnesium Oxide (Mag-Ox) 800 mg UNSCH PRN PO For Magnesium 1.2 - 1.6 mg/dL; Start 05/21/17 at 06:00; Stop 05/21/17 at 16:52; Status DC Magnesium Sulfate 2 gm/Sodium Chloride 100 ml @ 50 mls/hr UNSCH PRN IV For Magnesium 1.2 - 1.6 mg/dL; Start 05/21/17 at 06:00; Stop 05/21/17 at 16:52; Status DC Potassium Phosphate (K-Phos) 2,000 mg Q4H PRN PO For Phosphorus < 2.5 mg/dL; Start 05/21/17 at 06:00; Stop 05/21/17 at 16:52; Status DC Sodium Phosphate 30 mmol/Sodium Chloride 250 ml @ 42 mls/hr UNSCH PRN IV For Phosphorus < 2.5 mg/dL; Start 05/21/17 at 06:00; Stop 05/21/17 at 16:52; Status DC Potassium Phosphate (K-Phos) 2,000 mg UNSCH PRN PO/TUBE SEE LABEL COMMENTS; Start 05/21/17 at 06:00; Stop 05/21/17 at 16:52; Status DC Potassium Phosphate 30 mmol/ Sodium Chloride 260 ml @ 42 mls/hr UNSCH PRN IV SEE LABEL COMMENTS; Start 05/21/17 at 06:00; Stop 05/21/17 at 16:52; Status DC Potassium Bicarb/ Potassium Chloride (K-Lyte Cl Eff) 50 meq ONCE ONCE PO Last administered on 05/22/17at 18:40; Start 05/22/17 at 16:00; Stop 05/22/17 at 16: 01; Status DC Dextrose/Sodium Chloride 1,000 ml @ 100 mls/hr Q10H IV Last administered on 05/22/17at 15:45; Start 05/22/17 at 15:45; Stop 05/23/17 at 01:44; Status DC Potassium Chloride (KCl) 30 meq ONCE ONCE PO ; Start 05/23/17 at 19:00; Stop 05/23/17 at 19:44; Status DC Potassium Chloride (KCl) 40 meq ONCE ONCE PO ; Start 05/24/17 at 12:15; Stop 05/24/17 at 12:16; Status DC Megestrol Acetate (Megace Liq) 400 mg DAILY PO Last administered on 05/26/17at 08 :22; Start 05/25/17 at 15:00 A/P Problem List: (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 Neurosurgery consult appreciated. - Maintain SBP < 140. - HOB up. - follow up with neurosurgery. - Keppra for seizure prophylaxis. - No indication for Decadron at this time. - PT/ OT/ ST. No indication for surgical intervention at this point. Hypokalemia 05/25 potassium level still low at 3.3. Continue to replace orally and monitor BMP. Hypoglycemia Likely secondary to decreased by mouth intake. - D5 normal saline. - Add Ensure to meals. - Monitor BMP. IV fluids discontinued on 05/23. 05/25 no episodes of hypoglycemia. Poor oral intake As per RN the patient is not eating much. Consult dietitian. Start the patient on Megace. PPx: SCDs Discharge Planning Patient is not a safe discharge due to weakness. The patient cannot be discharged to a rehab facility given that he is on house arrest. Discussed with pillowcase cleaner. Will order PT for 7 days a week. Saroj Frey DO May 26, 2017 12:29
[2017-05-26] MEDS ORDERED: MAGNESIUM SULFATE 1 GM PREMIX 100 ML IV ONE (12:30)
[2017-05-26] MEDS ORDERED: POTASSIUM CHLORIDE 25 MEQ EFFERVESCENT TAB PO ONE (12:30)
--- NOTE | 2017-05-26 14:32 | HHI.HCPN ---
Palliative care consulted to assist with goals of care for Mr. Wilson. In review of records hospice was also consulted to evaluate and meet with patient/ family as they desire hospice services. Spoke with hospice intake and veneer stapler. Requested they contact palliative care should consultation be needed if after meeting with hospice patient/family are not ready for hospice services. Palliative care will continue to follow throughout hospitalization. Full consultation to follow if needed after patient/family meeting with hospice. Irais Luz PROFESSOR OF FINE ART, TELESALES CONSULTANT May 26, 2017 14:32
--- NOTE | 2017-05-26 16:50 | HHI.NSPN ---
(LaceyMing) History Chief Complaint: Unable to obtain due to patient's mental status. (LaceyMing) Interval History 05/20: This is 56 y/o right handed man s/p resection left temporal lobe metastatic brain lesion from right upper lobe primary in January 2017. He has undergone palliative whole brain radiation therapy is on Keytruda on May 2016. On July 19, 2016 he received additional radiosurgery with 18 GY to a lesion on the right temporal lobe, in a single fracture. On July 21, 2016 he received with additional 30 GY to the left temporal lobe lesion. His prior CT of the chest has shown a cavitary mass on the right pulmonary apex, as well as evidence of pulmonary emboli. He was anticoagulated with Xarelto for his PE. He has a history of treatment with carboplatin/ALI MTA chemotherapy. The carboplatin was stopped on December 2016 due to hearing loss. Mr Wilson presents to [facility] for urgent evaluation. He suffered altered mental status. The patient is unable to provide much history. He underwent a scan at [facility] which was reported as having a new brain metastases in the right side with surrounding hemorrhage. Patient is on xarelto. No seizures. No tongue biting. No tonic-clonic movement seen. No incontinence of stool or urine. He was moving all 4 extremities. Transferred to [facility] and a neurosurgical consultation was requested 05/21. An MRI brain was completed. he is alert, awake, following commands 05/22: 56-year-old male with history of metastatic lung cancer to the brain. He has received previous whole brain radiation with radiosurgery to right and left temporal lesions. More recent craniotomy for resection of left temporal lesion January 2017. Presents now upon transfer from [facility] for mental status changes with possible new hemorrhage. Subsequent follow-up CT and MRI at [facility] revealed no definite significant intracranial hemorrhage or mass effect with no new brain lesions. 05/23: The patient is lethargic when seen this afternoon. He responded to light tactile stimulation of the upper extremity. He readily fell back to sleep and required coaxing to briefly interact. His voice was garbled and he spoke only two or three words which were incomprehensible. He did follow some commands but eventually bean the covers over his head. The associate director of nursing stated that the patient has been like this the whole day. 05/24: The patient is awake and alert when seen this afternoon. He verbalises in a few words which are mostly garbled and incomprehensible. He does follow some commands approximately. 05/26: When seen this afternoon the patient is asleep but does awaken to voice. His speech is garbled using a few words with incomplete sentences. He moves all extremities spontaneously and follows some commands. (Ming Rahman) System Review Comments Unable to obtain due to patient's mental status. (Ming Rahman) Exam Results 05/24/17 05/24/17 05/25/17 05/25/17 05/26/17 05/26/17 06:00 18:00 06:00 18:00 06:00 18:00 Intake Total 677 ml 480 ml 100 ml 240 ml 760 ml Output Total 200 ml 150 ml Balance 477 ml 330 ml 100 ml 240 ml 760 ml Intake Oral 677 ml 480 ml 240 ml 760 ml IV Total 100 ml Output Urine Total 200 ml 150 ml # Voids 4 1 2 2 5 # Bowel Movements 0 1 0 Vital Signs Date Time Temp Pulse Resp B/P (MAP) Pulse Ox O2 Delivery O2 Flow Rate FiO2 05/26/17 16:00 98.9 107 18 129/77 (94) 91 05/26/17 12:00 97.9 107 18 124/77 (93) 95 05/26/17 09:21 104 05/26/17 08:33 Room Air 05/26/17 08:00 98.9 101 18 120/83 (95) 91 05/26/17 04:00 110 05/26/17 04:00 98.4 109 20 131/72 (91) 92 05/26/17 00:00 108 05/26/17 00:00 97.4 102 18 124/72 (89) 92 05/25/17 20:13 Room Air 05/25/17 20:00 97.5 109 18 125/78 (94) 91 05/25/17 20:00 112 05/25/17 17:17 97.8 103 17 118/80 (93) 94 05/25/17 12:24 97.7 108 17 118/79 (92) 94 05/25/17 10:37 102 05/25/17 08:36 Room Air 05/25/17 08:05 97.1 103 17 124/78 (93) 94 05/25/17 04:51 97.8 107 18 127/81 (96) 93 05/25/17 04:51 109 05/25/17 00:49 98.6 105 18 126/89 (101) 95 05/24/17 23:51 94 05/24/17 22:10 95 Room Air 05/24/17 20:00 97.9 107 20 118/79 (92) 94 05/24/17 16:02 98.2 97 17 120/80 (93) 93 05/24/17 13:43 Room Air 05/24/17 12:13 98.2 106 17 125/76 (92) 91 05/24/17 12:00 107 05/24/17 08:16 98.1 98 17 126/81 (96) 91 05/24/17 08:00 105 05/24/17 05:00 103 05/24/17 04:30 98.0 68 19 120/89 (99) 97 05/24/17 00:05 97.8 95 18 131/66 (87) 93 05/23/17 22:20 Room Air 05/23/17 21:54 21 05/23/17 21:45 98.3 67 18 123/78 (93) 98 (Ming Rahman) Physical Examination GENERAL: Asleep but awakens to voice. Flat affect. Interacts readily. No apparent distress. HEENT: Normocephalic, atraumatic. PERRLA 2 mm reactive. Mucous membranes tacky, tongue midline to protrusion. MUSCULOSKELETAL: Moves all extremities spontaneously and to command. NEUROLOGICAL: Asleep but awakens to voice. Voice garbled, speaking with a few words w/incomplete sentences. Moderate dysarthria. PERRLA 2 mm reactive. Tongue midline to protrusion. Did follow some simple commands with all extremities but not sufficiently to assess motor strength. (Ming Rahman) Lab, Micro, Other Results Laboratory Tests Test 05/24/17 11:15 05/25/17 08:53 05/26/17 06:08 White Blood Count 8.8 TH/MM3 8.2 TH/MM3 Red Blood Count 2.72 MIL/MM3 2.90 MIL/MM3 Hemoglobin 9.5 GM/DL 10.2 GM/DL Hematocrit 27.5 % 29.1 % Mean Corpuscular Volume 101.1 FL 100.4 FL Mean Corpuscular Hemoglobin 35.0 PG 35.2 PG Mean Corpuscular Hemoglobin Concent 34.7 % 35.1 % Red Cell Distribution Width 16.6 % 16.6 % Platelet Count 78 TH/MM3 79 TH/MM3 Mean Platelet Volume 6.9 FL 7.4 FL Neutrophils (%) (Auto) 84.8 % Lymphocytes (%) (Auto) 10.1 % Monocytes (%) (Auto) 3.8 % Eosinophils (%) (Auto) 0.7 % Basophils (%) (Auto) 0.6 % Neutrophils # (Auto) 7.5 TH/MM3 Lymphocytes # (Auto) 0.9 TH/MM3 Monocytes # (Auto) 0.3 TH/MM3 Eosinophils # (Auto) 0.1 TH/MM3 Basophils # (Auto) 0.1 TH/MM3 CBC Comment AUTO DIFF Differential Total Cells Counted 100 Neutrophils % (Manual) 66 % Band Neutrophils % 19 % Lymphocytes % 7 % Monocytes % 5 % Neutrophils # (Manual) 7.7 TH/MM3 Myelocytes 3 % Differential Comment FINAL DIFF MANUAL Toxic Granulation 1+ Toxic Vacuolation PRESENT Platelet Estimate LOW Platelet Morphology Comment NORMAL Keratocytes OCC Blood Urea Nitrogen 9 MG/DL 12 MG/DL 13 MG/DL Creatinine 0.52 MG/DL 0.56 MG/DL 0.59 MG/DL Random Glucose 69 MG/DL 71 MG/DL 98 MG/DL Total Protein 6.8 GM/DL Albumin 2.5 GM/DL Calcium Level 8.5 MG/DL 9.0 MG/DL 9.1 MG/DL Phosphorus Level 3.5 MG/DL 2.8 MG/DL Magnesium Level 1.5 MG/DL 1.9 MG/DL Alkaline Phosphatase 140 U/L Aspartate Amino Transf (AST/SGOT) 19 U/L Alanine Aminotransferase (ALT/SGPT) 20 U/L Total Bilirubin 0.6 MG/DL Sodium Level 137 MEQ/L 135 MEQ/L 140 MEQ/L Potassium Level 3.4 MEQ/L 3.3 MEQ/L 3.3 MEQ/L Chloride Level 101 MEQ/L 100 MEQ/L 103 MEQ/L Carbon Dioxide Level 24.3 MEQ/L 25.8 MEQ/L 26.7 MEQ/L Anion Gap 12 MEQ/L 9 MEQ/L 10 MEQ/L Estimat Glomerular Filtration Rate 201 ML/MIN 184 ML/MIN 173 ML/MIN (Ming Rahman) Medical Decision Making Impression and Plan Impression: 1. Most recent MRI of the brain during this admission reveals a relatively stable right temporal lobe partially enhancing lesion with an area of encephalomalacia with postoperative changes in the left temporal lobe. Some persistent edema. Recent altered mental status possibly related to seizure. Asleep when seen but awakens to voice. Readily interacts & follows some commands but not sufficiently to fully assess strength. Vocalising w/a few words that are garbled w/incomplete sentences. Tachycardia. Reviewed labs for today. Interval improvement in haemoglobin level. Thrombocytopenia essentially stable. Sodium 140. Hypokalemia stable at 3.3. No definite new lesions noted on recent imaging studies per Dr Wu. Plan: Primary management per Hospitalist. Neurology following for seizures. Neuro checks. Stat CT brain for any decline in neuro status. Neurosurgical intervention not indicated at this time. Patient is able to be discharged from Neurosurgery's perspective for further therapy. Will intermittently follow since no active neurosurgical issue. (Ming Rahman) Attending Statement The exam, history, and the medical decision-making described in the above note were completed with the assistance of the mid-level provider. I reviewed and agree with the findings presented. I attest that I had a [id number] encounter with the patient on the same day, and personally performed and documented my assessment and findings in the medical record. On my examination 05/26/2017 the patient remains mildly lethargic. He arouses easily, follow simple commands. Speech remains moderately dysarthric. He has mostly moderate strength throughout the upper and lower extremities and major flexion-extension septic tank service technician No significant neurologic changes for the past few days. Remains on anticonvulsants, neurology following No neurosurgical intervention planned at this time. He is stable for discharge to intermediate and rehabilitation from neurosurgical standpoint. (Alex Wu MD) Ming Rahman May 26, 2017 16:50 Alex Wu MD May 26, 2017 19:34
[2017-05-27] VITALS (10 sets, daily range): BP systolic 126–158; BP diastolic 82–88; PULSE 77–111; RESP 18–22; TEMP 97.7–98.8; O2SAT 91–94
[2017-05-27] MEDS: CHLORHEXIDINE GLUCONATE 2 % 1 PACK (2 CLOTHS) TOP SCH (04:00)
[2017-05-27 08:00] LABS: AUTOMATED NEUTROPHIL # 7.3 TH/MM3 (1.8-7.7); BASOPHIL % 0.3 % (0.0-2.0); EOSINOPHIL # 0.1 TH/MM3 (0-0.4); EOSINOPHIL % 1.1 % (0.0-4.0); HEMATOCRIT 28.9 % (39.0-51.0); HEMOGLOBIN 10.1 GM/DL (13.0-17.0); LYMPH % 13.1 % (9.0-44.0); LYMPHOCYTE # 1.2 TH/MM3 (1.0-4.8); MEAN CELL VOLUME 101.2 FL (80.0-100.0); MEAN CORPUSCULAR HEMOGLOBIN 35.2 PG (27.0-34.0); MEAN CORPUSCULAR HGB CONC 34.8 % (32.0-36.0); MEAN PLATELET VOLUME 7.8 FL (7.0-11.0); MONO % 5.8 % (0.0-8.0); MONOCYTE # 0.5 TH/MM3 (0-0.9); NEUT % 79.7 % (16.0-70.0); PLATELET COUNT 79 TH/MM3 (150-450); RED BLOOD COUNT 2.86 MIL/MM3 (4.50-5.90); RED CELL DISTRIBUTION WIDTH 16.6 % (11.6-17.2); WHITE BLOOD COUNT 9.2 TH/MM3 (4.0-11.0)
[2017-05-27 08:42] LABS: ALBUMIN 2.5 GM/DL (3.4-5.0); ALKALINE PHOSPHATASE 167 U/L (45-117); ALT (GPT) 18 U/L (12-78); AST (GOT) 25 U/L (15-37); BICARBONATE 23.8 MEQ/L (21.0-32.0); BLOOD UREA NITROGEN 15 MG/DL (7-18); CALCIUM 9.6 MG/DL (8.5-10.1); CHLORIDE 104 MEQ/L (98-107); CREATININE 0.64 MG/DL (0.60-1.30); FREE T4 1.17 NG/DL (0.76-1.46); GLOMERULAR FILTRATION RATE 158 ML/MIN (>89); GLUCOSE,RANDOM 72 MG/DL (74-106); PHOSPHORUS 2.7 MG/DL (2.5-4.9); SODIUM (NA) 138 MEQ/L (136-145); TOTAL BILIRUBIN ADULT 0.5 MG/DL (0.2-1.0); TOTAL PROTEIN 7.3 GM/DL (6.4-8.2)
[2017-05-27] MEDS: DOCUSATE SODIUM 50 MG/SENNA 8.6 MG TAB PO SCH ×3 (09:00→21:00)
[2017-05-27] MEDS: MEGESTROL ACETATE SUSP 400 MG/10 ML CUP PO SCH ×2 (09:00→09:18)
[2017-05-27] MEDS: FAMOTIDINE 20 MG/2 ML VIAL IV PUSH SCH ×2 (09:18→21:32)
[2017-05-27] MEDS: levETIRAcetam INJ 500 MG in SODIUM CHLORIDE 0.9% INJ 100 ML IV SCH ×2 (09:19→21:33)
[2017-05-27 10:19] LABS: BANDS 39 % (0-6); LYMPHOCYTES 6 % (9-44); MONOCYTES 6 % (0-8); POLYS (SEG NEUTROPHILS) 48 % (16-70)
[2017-05-27 10:21] LABS: DOHLE BODIES PRESENT (NONE SEEN); TOXIC VACUOLATION PRESENT (NONE SEEN)
[2017-05-27 10:22] LABS: TEARDROP RBCS 1+ (NORMAL); TOXIC GRANULATION 1+ (NORMAL)
--- NOTE | 2017-05-27 11:58 | HHI.PR ---
Subjective Remarks 3-9 FAMILY WANTS HOSPICE INVOLVED WILL MAKE SURE PALLIATIVE CARE IS INVOLVED IF NOT ON THE CASE YET NO CURRENT COMPLAINTS DW RN AND PT PT AND OT TO EVAL DIFFICULT PLACEMENT ISSUE DUE TO ANKLE MONITOR IN PLACE 3- FAMILY NEEDS TO TALK WITH HOSPICE AND PALLIATIVE CARE TO MAKE DECISIONS ON HIS LONG-TERM CARE GOALS PT NOT ABLE TO COMMUNICATE HIS WISHES TO ME GÓMEZ DW RN AND CM Objective Vitals Vital Signs Date Time Temp Pulse Resp B/P (MAP) Pulse Ox O2 Delivery O2 Flow Rate FiO2 05/27/17 11:06 95 Room Air 05/27/17 08:00 97.7 107 18 136/87 (103) 91 05/27/17 04:00 111 05/27/17 04:00 98.8 109 20 130/82 (98) 94 05/27/17 00:00 107 05/27/17 00:00 97.9 106 22 158/82 (107) 92 05/26/17 22:31 Room Air 05/26/17 20:00 99.1 106 20 135/73 (93) 92 05/26/17 20:00 107 05/26/17 18:19 101 05/26/17 17:25 91 21 05/26/17 16:00 98.9 107 18 129/77 (94) 91 05/26/17 12:00 97.9 107 18 124/77 (93) 95 I/O 05/26/17 05/26/17 05/26/17 05/27/17 05/27/17 05/27/17 06:59 14:59 22:59 06:59 14:59 22:59 Intake Total 760 ml Balance 760 ml Intake Oral 760 ml # Voids 3 4 3 # Bowel Movements 0 0 Result Diagram: 05/27/1725 05/27/17624 Other Results Laboratory Tests Test 05/25/17 08:53 05/26/17 06:08 05/27/17 06:25 Blood Urea Nitrogen 12 MG/DL 13 MG/DL 15 MG/DL Creatinine 0.56 MG/DL 0.59 MG/DL 0.64 MG/DL Random Glucose 71 MG/DL 98 MG/DL 72 MG/DL Calcium Level 9.0 MG/DL 9.1 MG/DL 9.6 MG/DL Sodium Level 135 MEQ/L 140 MEQ/L 138 MEQ/L Potassium Level 3.3 MEQ/L 3.3 MEQ/L 4.6 MEQ/L Chloride Level 100 MEQ/L 103 MEQ/L 104 MEQ/L Carbon Dioxide Level 25.8 MEQ/L 26.7 MEQ/L 23.8 MEQ/L Anion Gap 9 MEQ/L 10 MEQ/L 10 MEQ/L Estimat Glomerular Filtration Rate 184 ML/MIN 173 ML/MIN 158 ML/MIN White Blood Count 8.2 TH/MM3 9.2 TH/MM3 Red Blood Count 2.90 MIL/MM3 2.86 MIL/MM3 Hemoglobin 10.2 GM/DL 10.1 GM/DL Hematocrit 29.1 % 28.9 % Mean Corpuscular Volume 100.4 FL 101.2 FL Mean Corpuscular Hemoglobin 35.2 PG 35.2 PG Mean Corpuscular Hemoglobin Concent 35.1 % 34.8 % Red Cell Distribution Width 16.6 % 16.6 % Platelet Count 79 TH/MM3 79 TH/MM3 Mean Platelet Volume 7.4 FL 7.8 FL Phosphorus Level 2.8 MG/DL 2.7 MG/DL Magnesium Level 1.9 MG/DL 2.0 MG/DL Neutrophils (%) (Auto) 79.7 % Lymphocytes (%) (Auto) 13.1 % Monocytes (%) (Auto) 5.8 % Eosinophils (%) (Auto) 1.1 % Basophils (%) (Auto) 0.3 % Neutrophils # (Auto) 7.3 TH/MM3 Lymphocytes # (Auto) 1.2 TH/MM3 Monocytes # (Auto) 0.5 TH/MM3 Eosinophils # (Auto) 0.1 TH/MM3 Basophils # (Auto) 0.0 TH/MM3 CBC Comment AUTO DIFF Differential Total Cells Counted 100 Neutrophils % (Manual) 48 % Band Neutrophils % 39 % Lymphocytes % 6 % Monocytes % 6 % Eosinophils % 1 % Neutrophils # (Manual) 8.0 TH/MM3 Differential Comment FINAL DIFF MANUAL Toxic Granulation 1+ Toxic Vacuolation PRESENT Dohle Bodies PRESENT Platelet Estimate LOW Platelet Morphology Comment NORMAL Tear Drop Cells 1+ Total Protein 7.3 GM/DL Albumin 2.5 GM/DL Alkaline Phosphatase 167 U/L Aspartate Amino Transf (AST/SGOT) 25 U/L Alanine Aminotransferase (ALT/SGPT) 18 U/L Total Bilirubin 0.5 MG/DL Free Thyroxine 1.17 NG/DL Thyroid Stimulating Hormone 3rd Gen 1.100 uIU/ML Imaging Last Impressions Head CT 05/20/17 0000 Signed Impressions: Service Date/Time: Saturday, May 20, 2017 09:29 - CONCLUSION: Left temporal encephalomalacia defect with significant fluid herniating out of the craniotomy defect. No evidence of acute hemorrhage or acute process. Rick Rojas MD Brain MRI 05/20/17 0000 Signed Impressions: Service Date/Time: Saturday, May 20, 2017 16:57 - CONCLUSION: Enhancing lesion in the right temporal region and postoperative changes left temporal lobe with mild peripheral enhancement seen. Bret Rawls MD Objective Remarks Gen: Appears comfortable not in any acute distress, patient is confused-- quite aphasic at this time- MUMBLES Head: Atraumatic. PERRLA EOMI TONGUE MIDLINE Neck: Supple, airway widely patent. Lungs: Clear to auscultation bilaterally. Heart: RRR, No JVD.S1, S2 NO S3 OR S4 Abdomen: Soft, no guarding. No tenderness. Extremities: Warm, well perfused. No clubbing or cyanosis or edema has right lower extremity police monitor in place Neuro: Moves 4 limbs to command. Hand grasps 5/5 on left upper extremity, strength 4/5 on right upper and lower extremity. EOMIs intact. Speech clear but difficulty finding words. Awake and alert oriented to person only. Psych: Mood and affect INappropriate. Procedures None Medications and IVs Current Medications Sodium Chloride 1,000 ml @ 50 mls/hr Q20H IV Last administered on 05/23/17at 04: 54; Start 05/20/17 at 09:00; Stop 05/23/17 at 18:53; Status DC Acetaminophen (Tylenol) 650 mg Q6H PRN PO PAIN 1-10 AND/OR FEVER >101F Last administered on 05/20/17at 22:48; Start 05/20/17 at 09:00 Morphine Sulfate (Morphine Inj) 2 mg Q2H PRN IV PUSH PAIN SCALE 6 TO 10 Last administered on 05/23/17at 10:38; Start 05/20/17 at 09:00 Famotidine (Pepcid Inj) 20 mg Q12HR IV PUSH Last administered on 05/27/17at 09: 18; Start 05/20/17 at 09:00 Ondansetron HCl (Zofran Inj) 4 mg Q6H PRN IV PUSH NAUSEA OR VOMITING; Start 05/20/17 at 09:00 Miscellaneous Information 1 Q361D XX Last administered on 05/20/17at 09:00; Start 05/20/17 at 09:00 Chlorhexidine Gluconate (Chlorhexidine 2% Cloth) Taper DAILY@04 TOP Last administered on 05/21/17at 04:00; Start 05/21/17 at 04:00; Stop 05/17/18 at 03:59 Chlorhexidine Gluconate (Chlorhexidine 2% Cloth) 3 pack UNSCH PRN TOP HYGIENIC CARE; Start 05/20/17 at 09:00 Senna/Docusate Sodium (Jaqui-Colace) 1 tab BID PO Last administered on 05/26/17at 22:35; Start 05/20/17 at 09:00 Magnesium Hydroxide (Milk Of Magnesia Liq) 30 ml Q12H PRN PO Mild constipation ; Start 05/20/17 at 09:00 Sennosides (Senokot) 17.2 mg Q12H PRN PO Moderate constipation; Start 05/20/17 at 09:00 Bisacodyl (Dulcolax Supp) 10 mg DAILY PRN RECTAL SEVERE CONSITIPATION; Start at 09:00 Lactulose (Lactulose Liq) 30 ml DAILY PRN PO SEVERE CONSITIPATION; Start at 09:00 Levetriacetam 500 mg/Sodium Chloride 105 ml @ 420 mls/hr Q12HR IV Last administered on 05/27/17at 09:19; Start 05/20/17 at 09:00 Gadodiamide (Omniscan Pf Inj) 15 ml STK-MED ONCE IVCONTRAST Last administered on 05/20/17at 17:17; Start 05/20/17 at 17:17; Stop 05/20/17 at 17:18; Status DC Potassium Chloride 100 ml @ 50 mls/hr Q2H PRN IV For Potassium 2.8 - 3.2 mEq/L ; Start 05/21/17 at 06:00; Stop 05/21/17 at 16:52; Status DC Potassium Chloride 100 ml @ 50 mls/hr Q2H PRN IV For Potassium 2.8 - 3.2 mEq/ L Last administered on 05/21/17at 14:35; Start 05/21/17 at 06:00; Stop 05/21/17 at 16:52; Status DC Potassium Bicarb/ Potassium Chloride (K-Lyte Cl Eff) 50 meq UNSCH PRN PO For Potassium 3.3 - 3.5 mEq/L; Start 05/21/17 at 06:00; Stop 05/21/17 at 16:52; Status DC Potassium Chloride 100 ml @ 25 mls/hr UNSCH PRN IV For Potassium 3.3 - 3.5 mEq /L; Start 05/21/17 at 06:00; Stop 05/21/17 at 16:52; Status DC Potassium Chloride 100 ml @ 50 mls/hr Q2H PRN IV For Potassium 3.3 - 3.5 mEq/L ; Start 05/21/17 at 06:00; Stop 05/21/17 at 16:52; Status DC Magnesium Sulfate 4 gm/Sodium Chloride 100 ml @ 50 mls/hr UNSCH PRN IV For Magnesium 0.9 - 1.1 mg/dL; Start 05/21/17 at 06:00; Stop 05/21/17 at 16:52; Status DC Magnesium Oxide (Mag-Ox) 800 mg UNSCH PRN PO For Magnesium 1.2 - 1.6 mg/dL; Start 05/21/17 at 06:00; Stop 05/21/17 at 16:52; Status DC Magnesium Sulfate 2 gm/Sodium Chloride 100 ml @ 50 mls/hr UNSCH PRN IV For Magnesium 1.2 - 1.6 mg/dL; Start 05/21/17 at 06:00; Stop 05/21/17 at 16:52; Status DC Potassium Phosphate (K-Phos) 2,000 mg Q4H PRN PO For Phosphorus < 2.5 mg/dL; Start 05/21/17 at 06:00; Stop 05/21/17 at 16:52; Status DC Sodium Phosphate 30 mmol/Sodium Chloride 250 ml @ 42 mls/hr UNSCH PRN IV For Phosphorus < 2.5 mg/dL; Start 05/21/17 at 06:00; Stop 05/21/17 at 16:52; Status DC Potassium Phosphate (K-Phos) 2,000 mg UNSCH PRN PO/TUBE SEE LABEL COMMENTS; Start 05/21/17 at 06:00; Stop 05/21/17 at 16:52; Status DC Potassium Phosphate 30 mmol/ Sodium Chloride 260 ml @ 42 mls/hr UNSCH PRN IV SEE LABEL COMMENTS; Start 05/21/17 at 06:00; Stop 05/21/17 at 16:52; Status DC Potassium Bicarb/ Potassium Chloride (K-Lyte Cl Eff) 50 meq ONCE ONCE PO Last administered on 05/22/17at 18:40; Start 05/22/17 at 16:00; Stop 05/22/17 at 16: 01; Status DC Dextrose/Sodium Chloride 1,000 ml @ 100 mls/hr Q10H IV Last administered on 05/22/17at 15:45; Start 05/22/17 at 15:45; Stop 05/23/17 at 01:44; Status DC Potassium Chloride (KCl) 30 meq ONCE ONCE PO ; Start 05/23/17 at 19:00; Stop 05/23/17 at 19:44; Status DC Potassium Chloride (KCl) 40 meq ONCE ONCE PO ; Start 05/24/17 at 12:15; Stop 05/24/17 at 12:16; Status DC Megestrol Acetate (Megace Liq) 400 mg DAILY PO Last administered on 05/26/17at 08 :22; Start 05/25/17 at 15:00 Potassium Bicarb/ Potassium Chloride (K-Lyte Cl Eff) 50 meq ONCE ONCE PO Last administered on 05/26/17at 15:07; Start 05/26/17 at 12:30; Stop 05/26/17 at 13: 24; Status DC Magnesium Sulfate/ Dextrose 100 ml @ 100 mls/hr ONCE ONCE IV Last administered on 05/26/17at 15:09; Start 05/26/17 at 12:30; Stop 05/26/17 at 13:29; Status DC A/P Problem List: (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 Neurosurgery consult appreciated. - Maintain SBP < 140. - HOB up. - follow up with neurosurgery. - Keppra for seizure prophylaxis. - No indication for Decadron at this time. - PT/ OT/ ST. No indication for surgical intervention at this point. Hypokalemia 05/25 potassium level still low at 3.3. Continue to replace orally and monitor BMP. RESOLVED Hypoglycemia Likely secondary to decreased by mouth intake. - D5 normal saline. - Add Ensure to meals. - Monitor BMP. IV fluids discontinued on 05/23. 05/25 no episodes of hypoglycemia. Poor oral intake As per RN the patient is not eating much. Consult dietitian. Start the patient on Megace. SEVERE DECONDITIONING-CONTINUE PT AND OT PPx: SCDs Discharge Planning Patient is not a safe discharge due to weakness. The patient cannot be discharged to a rehab facility given that he is on house arrest. Discussed with case packer and sealer. Will order PT for 7 days a week. Saroj Frey DO May 27, 2017 11:58
[2017-05-27 12:35] LABS: HEMOGLOBIN A1C 5.9 % (4.3-6.0)
[2017-05-28] VITALS (10 sets, daily range): BP systolic 117–139; BP diastolic 86–94; PULSE 93–114; RESP 18–22; TEMP 97.4–99.3; O2SAT 93–97
[2017-05-28] MEDS: CHLORHEXIDINE GLUCONATE 2 % 1 PACK (2 CLOTHS) TOP SCH (04:00)
[2017-05-28] MEDS: levETIRAcetam INJ 500 MG in SODIUM CHLORIDE 0.9% INJ 100 ML IV SCH ×2 (08:35→21:52)
[2017-05-28] MEDS: DOCUSATE SODIUM 50 MG/SENNA 8.6 MG TAB PO SCH ×2 (08:36→21:00)
[2017-05-28] MEDS: FAMOTIDINE 20 MG/2 ML VIAL IV PUSH SCH ×2 (08:36→21:52)
[2017-05-28] MEDS: MEGESTROL ACETATE SUSP 400 MG/10 ML CUP PO SCH (08:45)
--- NOTE | 2017-05-28 12:41 | HHI.PR ---
Subjective Remarks 3-9 FAMILY WANTS HOSPICE INVOLVED WILL MAKE SURE PALLIATIVE CARE IS INVOLVED IF NOT ON THE CASE YET NO CURRENT COMPLAINTS DW RN AND PT PT AND OT TO EVAL DIFFICULT PLACEMENT ISSUE DUE TO ANKLE MONITOR IN PLACE 3-10 FAMILY NEEDS TO TALK WITH HOSPICE AND PALLIATIVE CARE TO MAKE DECISIONS ON HIS SENIOR CARE CARE GOALS PT NOT ABLE TO COMMUNICATE HIS WISHES TO ME GÓMEZ DW RN AND CM 3-11 NOT TALKATIVE TODAY FAMILY TO WORK WITH PALLIATIVE CARE TOMORROW DW RN AND CM Objective Vitals Vital Signs Date Time Temp Pulse Resp B/P (MAP) Pulse Ox O2 Delivery O2 Flow Rate FiO2 05/28/17 12:00 99.3 114 18 127/88 (101) 93 05/28/17 10:11 Room Air 05/28/17 08:00 99.3 102 18 129/86 (100) 93 05/28/17 04:00 97.5 104 22 139/94 (109) 94 05/28/17 00:00 110 05/28/17 00:00 97.4 106 18 130/87 (101) 93 05/27/17 21:29 Room Air 05/27/17 21:26 93 21 05/27/17 20:00 98.5 107 21 134/86 (102) 93 05/27/17 20:00 105 05/27/17 16:44 101 05/27/17 16:04 98.3 103 18 126/88 (101) 93 05/27/17 13:20 77 I/O 05/27/17 05/27/17 05/27/17 05/28/17 05/28/17 05/28/17 07:00 15:00 23:00 07:00 15:00 23:00 # Voids 3 2 # Bowel Movements 0 0 Result Diagram: 05/27/1725 05/27/1725 Other Results Laboratory Tests Test 05/26/17 06:08 05/27/17 06:25 White Blood Count 8.2 TH/MM3 9.2 TH/MM3 Red Blood Count 2.90 MIL/MM3 2.86 MIL/MM3 Hemoglobin 10.2 GM/DL 10.1 GM/DL Hematocrit 29.1 % 28.9 % Mean Corpuscular Volume 100.4 FL 101.2 FL Mean Corpuscular Hemoglobin 35.2 PG 35.2 PG Mean Corpuscular Hemoglobin Concent 35.1 % 34.8 % Red Cell Distribution Width 16.6 % 16.6 % Platelet Count 79 TH/MM3 79 TH/MM3 Mean Platelet Volume 7.4 FL 7.8 FL Blood Urea Nitrogen 13 MG/DL 15 MG/DL Creatinine 0.59 MG/DL 0.64 MG/DL Random Glucose 98 MG/DL 72 MG/DL Calcium Level 9.1 MG/DL 9.6 MG/DL Phosphorus Level 2.8 MG/DL 2.7 MG/DL Magnesium Level 1.9 MG/DL 2.0 MG/DL Sodium Level 140 MEQ/L 138 MEQ/L Potassium Level 3.3 MEQ/L 4.6 MEQ/L Chloride Level 103 MEQ/L 104 MEQ/L Carbon Dioxide Level 26.7 MEQ/L 23.8 MEQ/L Anion Gap 10 MEQ/L 10 MEQ/L Estimat Glomerular Filtration Rate 173 ML/MIN 158 ML/MIN Neutrophils (%) (Auto) 79.7 % Lymphocytes (%) (Auto) 13.1 % Monocytes (%) (Auto) 5.8 % Eosinophils (%) (Auto) 1.1 % Basophils (%) (Auto) 0.3 % Neutrophils # (Auto) 7.3 TH/MM3 Lymphocytes # (Auto) 1.2 TH/MM3 Monocytes # (Auto) 0.5 TH/MM3 Eosinophils # (Auto) 0.1 TH/MM3 Basophils # (Auto) 0.0 TH/MM3 CBC Comment AUTO DIFF Differential Total Cells Counted 100 Neutrophils % (Manual) 48 % Band Neutrophils % 39 % Lymphocytes % 6 % Monocytes % 6 % Eosinophils % 1 % Neutrophils # (Manual) 8.0 TH/MM3 Differential Comment FINAL DIFF MANUAL Toxic Granulation 1+ Toxic Vacuolation PRESENT Dohle Bodies PRESENT Platelet Estimate LOW Platelet Morphology Comment NORMAL Tear Drop Cells 1+ Total Protein 7.3 GM/DL Albumin 2.5 GM/DL Alkaline Phosphatase 167 U/L Aspartate Amino Transf (AST/SGOT) 25 U/L Alanine Aminotransferase (ALT/SGPT) 18 U/L Total Bilirubin 0.5 MG/DL Hemoglobin A1c 5.9 % Free Thyroxine 1.17 NG/DL Thyroid Stimulating Hormone 3rd Gen 1.100 uIU/ML Imaging Last Impressions Head CT 05/20/17 0000 Signed Impressions: Service Date/Time: Saturday, May 20, 2017 09:29 - CONCLUSION: Left temporal encephalomalacia defect with significant fluid herniating out of the craniotomy defect. No evidence of acute hemorrhage or acute process. Rick Rojas MD Brain MRI 05/20/17 0000 Signed Impressions: Service Date/Time: Saturday, May 20, 2017 16:57 - CONCLUSION: Enhancing lesion in the right temporal region and postoperative changes left temporal lobe with mild peripheral enhancement seen. Bret Rawls MD Objective Remarks Gen: Appears comfortable not in any acute distress, patient is confused-- quite aphasic at this time- MUMBLES Head: Atraumatic. PERRLA EOMI TONGUE MIDLINE Neck: Supple, airway widely patent. Lungs: Clear to auscultation bilaterally. Heart: RRR, No JVD.S1, S2 NO S3 OR S4 Abdomen: Soft, no guarding. No tenderness. Extremities: Warm, well perfused. No clubbing or cyanosis or edema has right lower extremity police monitor in place Neuro: Moves 4 limbs to command. Hand grasps 5/5 on left upper extremity, strength 4/5 on right upper and lower extremity. EOMIs intact. Speech NOT clear but difficulty finding words. Awake and alert oriented to person only. Psych: Mood and affect INappropriate. Procedures None Medications and IVs Current Medications Sodium Chloride 1,000 ml @ 50 mls/hr Q20H IV Last administered on 05/23/17at 04: 54; Start 05/20/17 at 09:00; Stop 05/23/17 at 18:53; Status DC Acetaminophen (Tylenol) 650 mg Q6H PRN PO PAIN 1-10 AND/OR FEVER >101F Last administered on 05/20/17at 22:48; Start 05/20/17 at 09:00 Morphine Sulfate (Morphine Inj) 2 mg Q2H PRN IV PUSH PAIN SCALE 6 TO 10 Last administered on 05/23/17at 10:38; Start 05/20/17 at 09:00 Famotidine (Pepcid Inj) 20 mg Q12HR IV PUSH Last administered on 05/28/17at 08: 36; Start 05/20/17 at 09:00 Ondansetron HCl (Zofran Inj) 4 mg Q6H PRN IV PUSH NAUSEA OR VOMITING; Start 05/20/17 at 09:00 Miscellaneous Information 1 Q361D XX Last administered on 05/20/17at 09:00; Start 05/20/17 at 09:00 Chlorhexidine Gluconate (Chlorhexidine 2% Cloth) Taper DAILY@04 TOP Last administered on 05/21/17at 04:00; Start 05/21/17 at 04:00; Stop 05/17/18 at 03:59 Chlorhexidine Gluconate (Chlorhexidine 2% Cloth) 3 pack UNSCH PRN TOP HYGIENIC CARE; Start 05/20/17 at 09:00 Senna/Docusate Sodium (Jaqui-Colace) 1 tab BID PO Last administered on at 08:36; Start 05/20/17 at 09:00 Magnesium Hydroxide (Milk Of Magnesia Liq) 30 ml Q12H PRN PO Mild constipation ; Start 05/20/17 at 09:00 Sennosides (Senokot) 17.2 mg Q12H PRN PO Moderate constipation; Start 05/20/17 at 09:00 Bisacodyl (Dulcolax Supp) 10 mg DAILY PRN RECTAL SEVERE CONSITIPATION; Start at 09:00 Lactulose (Lactulose Liq) 30 ml DAILY PRN PO SEVERE CONSITIPATION; Start at 09:00 Levetriacetam 500 mg/Sodium Chloride 105 ml @ 420 mls/hr Q12HR IV Last administered on 05/28/17at 08:35; Start 05/20/17 at 09:00 Gadodiamide (Omniscan Pf Inj) 15 ml STK-MED ONCE IVCONTRAST Last administered on 05/20/17at 17:17; Start 05/20/17 at 17:17; Stop 05/20/17 at 17:18; Status DC Potassium Chloride 100 ml @ 50 mls/hr Q2H PRN IV For Potassium 2.8 - 3.2 mEq/L ; Start 05/21/17 at 06:00; Stop 05/21/17 at 16:52; Status DC Potassium Chloride 100 ml @ 50 mls/hr Q2H PRN IV For Potassium 2.8 - 3.2 mEq/ L Last administered on 05/21/17at 14:35; Start 05/21/17 at 06:00; Stop 05/21/17 at 16:52; Status DC Potassium Bicarb/ Potassium Chloride (K-Lyte Cl Eff) 50 meq UNSCH PRN PO For Potassium 3.3 - 3.5 mEq/L; Start 05/21/17 at 06:00; Stop 05/21/17 at 16:52; Status DC Potassium Chloride 100 ml @ 25 mls/hr UNSCH PRN IV For Potassium 3.3 - 3.5 mEq /L; Start 05/21/17 at 06:00; Stop 05/21/17 at 16:52; Status DC Potassium Chloride 100 ml @ 50 mls/hr Q2H PRN IV For Potassium 3.3 - 3.5 mEq/L ; Start 05/21/17 at 06:00; Stop 05/21/17 at 16:52; Status DC Magnesium Sulfate 4 gm/Sodium Chloride 100 ml @ 50 mls/hr UNSCH PRN IV For Magnesium 0.9 - 1.1 mg/dL; Start 05/21/17 at 06:00; Stop 05/21/17 at 16:52; Status DC Magnesium Oxide (Mag-Ox) 800 mg UNSCH PRN PO For Magnesium 1.2 - 1.6 mg/dL; Start 05/21/17 at 06:00; Stop 05/21/17 at 16:52; Status DC Magnesium Sulfate 2 gm/Sodium Chloride 100 ml @ 50 mls/hr UNSCH PRN IV For Magnesium 1.2 - 1.6 mg/dL; Start 05/21/17 at 06:00; Stop 05/21/17 at 16:52; Status DC Potassium Phosphate (K-Phos) 2,000 mg Q4H PRN PO For Phosphorus < 2.5 mg/dL; Start 05/21/17 at 06:00; Stop 05/21/17 at 16:52; Status DC Sodium Phosphate 30 mmol/Sodium Chloride 250 ml @ 42 mls/hr UNSCH PRN IV For Phosphorus < 2.5 mg/dL; Start 05/21/17 at 06:00; Stop 05/21/17 at 16:52; Status DC Potassium Phosphate (K-Phos) 2,000 mg UNSCH PRN PO/TUBE SEE LABEL COMMENTS; Start 05/21/17 at 06:00; Stop 05/21/17 at 16:52; Status DC Potassium Phosphate 30 mmol/ Sodium Chloride 260 ml @ 42 mls/hr UNSCH PRN IV SEE LABEL COMMENTS; Start 05/21/17 at 06:00; Stop 05/21/17 at 16:52; Status DC Potassium Bicarb/ Potassium Chloride (K-Lyte Cl Eff) 50 meq ONCE ONCE PO Last administered on 05/22/17at 18:40; Start 05/22/17 at 16:00; Stop 05/22/17 at 16: 01; Status DC Dextrose/Sodium Chloride 1,000 ml @ 100 mls/hr Q10H IV Last administered on 05/22/17at 15:45; Start 05/22/17 at 15:45; Stop 05/23/17 at 01:44; Status DC Potassium Chloride (KCl) 30 meq ONCE ONCE PO ; Start 05/23/17 at 19:00; Stop 05/23/17 at 19:44; Status DC Potassium Chloride (KCl) 40 meq ONCE ONCE PO ; Start 05/24/17 at 12:15; Stop 05/24/17 at 12:16; Status DC Megestrol Acetate (Megace Liq) 400 mg DAILY PO Last administered on 05/28/17at 08:45; Start 05/25/17 at 15:00 Potassium Bicarb/ Potassium Chloride (K-Lyte Cl Eff) 50 meq ONCE ONCE PO Last administered on 05/26/17at 15:07; Start 05/26/17 at 12:30; Stop 05/26/17 at 13: 24; Status DC Magnesium Sulfate/ Dextrose 100 ml @ 100 mls/hr ONCE ONCE IV Last administered on 05/26/17at 15:09; Start 05/26/17 at 12:30; Stop 05/26/17 at 13:29; Status DC A/P Problem List: (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 Neurosurgery consult appreciated. - Maintain SBP < 140. - HOB up. - follow up with neurosurgery. - Keppra for seizure prophylaxis. - No indication for Decadron at this time. - PT/ OT/ ST. No indication for surgical intervention at this point. Hypokalemia 05/25 potassium level still low at 3.3. Continue to replace orally and monitor BMP. RESOLVED Hypoglycemia Likely secondary to decreased by mouth intake. - D5 normal saline. - Add Ensure to meals. - Monitor BMP. IV fluids discontinued on 05/23. 05/25 no episodes of hypoglycemia. Poor oral intake As per RN the patient is not eating much. Consult dietitian. Start the patient on Megace. SEVERE DECONDITIONING-CONTINUE PT AND OT PPx: SCDs Discharge Planning Patient is not a safe discharge due to weakness. The patient cannot be discharged to a rehab facility given that he is on house arrest. Discussed with case management coordinator. Will order PT for 7 days a week. Saroj Frey DO May 28, 2017 12:41
[2017-05-29] VITALS (8 sets, daily range): BP systolic 129–141; BP diastolic 74–88; PULSE 97–117; RESP 18; TEMP 97–99.5; O2SAT 94–100
[2017-05-29] MEDS: CHLORHEXIDINE GLUCONATE 2 % 1 PACK (2 CLOTHS) TOP SCH (03:39)
[2017-05-29] MEDS: MEGESTROL ACETATE SUSP 400 MG/10 ML CUP PO SCH (08:19)
[2017-05-29] MEDS: DOCUSATE SODIUM 50 MG/SENNA 8.6 MG TAB PO SCH ×2 (08:19→22:20)
[2017-05-29] MEDS: FAMOTIDINE 20 MG/2 ML VIAL IV PUSH SCH ×2 (08:19→22:20)
[2017-05-29] MEDS: levETIRAcetam INJ 500 MG in SODIUM CHLORIDE 0.9% INJ 100 ML IV SCH ×2 (08:22→22:21)
--- NOTE | 2017-05-29 10:49 | HHI.PR ---
Subjective Remarks 3-9 FAMILY WANTS HOSPICE INVOLVED WILL MAKE SURE PALLIATIVE CARE IS INVOLVED IF NOT ON THE CASE YET NO CURRENT COMPLAINTS DW RN AND PT PT AND OT TO EVAL DIFFICULT PLACEMENT ISSUE DUE TO ANKLE MONITOR IN PLACE 3-10 FAMILY NEEDS TO TALK WITH HOSPICE AND PALLIATIVE CARE TO MAKE DECISIONS ON HIS HALF-WAY CARE GOALS PT NOT ABLE TO COMMUNICATE HIS WISHES TO ME GÓMEZ DW RN AND CM 3-11 NOT TALKATIVE TODAY FAMILY TO WORK WITH PALLIATIVE CARE TOMORROW DW RN AND CM 3-12 UTTERS FEW WORDS TODAY DW RN AND CM FAMILY NEEDS TO MAKE DECISIONS Objective Vitals Vital Signs Date Time Temp Pulse Resp B/P (MAP) Pulse Ox O2 Delivery O2 Flow Rate FiO2 05/29/17 08:22 97.8 105 18 141/87 (105) 96 05/29/17 04:00 98.0 98 18 139/84 (102) 97 05/29/17 00:00 98.0 97 18 134/82 (99) 97 05/28/17 22:19 95 05/28/17 20:02 93 05/28/17 20:00 98.2 106 18 138/86 (103) 97 05/28/17 17:29 113 05/28/17 16:00 97.6 101 18 117/86 (96) 95 05/28/17 14:44 114 05/28/17 12:00 99.3 114 18 127/88 (101) 93 I/O 05/28/17 05/28/17 05/28/17 05/29/17 05/29/17 05/29/17 06:59 14:59 22:59 06:59 14:59 22:59 # Voids 2 4 # Bowel Movements 0 Result Diagram: 05/27/1725 05/27/17624 Other Results Laboratory Tests Test 05/27/17 06:25 White Blood Count 9.2 TH/MM3 Red Blood Count 2.86 MIL/MM3 Hemoglobin 10.1 GM/DL Hematocrit 28.9 % Mean Corpuscular Volume 101.2 FL Mean Corpuscular Hemoglobin 35.2 PG Mean Corpuscular Hemoglobin Concent 34.8 % Red Cell Distribution Width 16.6 % Platelet Count 79 TH/MM3 Mean Platelet Volume 7.8 FL Neutrophils (%) (Auto) 79.7 % Lymphocytes (%) (Auto) 13.1 % Monocytes (%) (Auto) 5.8 % Eosinophils (%) (Auto) 1.1 % Basophils (%) (Auto) 0.3 % Neutrophils # (Auto) 7.3 TH/MM3 Lymphocytes # (Auto) 1.2 TH/MM3 Monocytes # (Auto) 0.5 TH/MM3 Eosinophils # (Auto) 0.1 TH/MM3 Basophils # (Auto) 0.0 TH/MM3 CBC Comment AUTO DIFF Differential Total Cells Counted 100 Neutrophils % (Manual) 48 % Band Neutrophils % 39 % Lymphocytes % 6 % Monocytes % 6 % Eosinophils % 1 % Neutrophils # (Manual) 8.0 TH/MM3 Differential Comment FINAL DIFF MANUAL Toxic Granulation 1+ Toxic Vacuolation PRESENT Dohle Bodies PRESENT Platelet Estimate LOW Platelet Morphology Comment NORMAL Tear Drop Cells 1+ Blood Urea Nitrogen 15 MG/DL Creatinine 0.64 MG/DL Random Glucose 72 MG/DL Total Protein 7.3 GM/DL Albumin 2.5 GM/DL Calcium Level 9.6 MG/DL Phosphorus Level 2.7 MG/DL Magnesium Level 2.0 MG/DL Alkaline Phosphatase 167 U/L Aspartate Amino Transf (AST/SGOT) 25 U/L Alanine Aminotransferase (ALT/SGPT) 18 U/L Total Bilirubin 0.5 MG/DL Sodium Level 138 MEQ/L Potassium Level 4.6 MEQ/L Chloride Level 104 MEQ/L Carbon Dioxide Level 23.8 MEQ/L Anion Gap 10 MEQ/L Estimat Glomerular Filtration Rate 158 ML/MIN Hemoglobin A1c 5.9 % Free Thyroxine 1.17 NG/DL Thyroid Stimulating Hormone 3rd Gen 1.100 uIU/ML Imaging Last Impressions Head CT 05/20/17 0000 Signed Impressions: Service Date/Time: Saturday, May 20, 2017 09:29 - CONCLUSION: Left temporal encephalomalacia defect with significant fluid herniating out of the craniotomy defect. No evidence of acute hemorrhage or acute process. Rick Rojas MD Brain MRI 05/20/17 0000 Signed Impressions: Service Date/Time: Saturday, May 20, 2017 16:57 - CONCLUSION: Enhancing lesion in the right temporal region and postoperative changes left temporal lobe with mild peripheral enhancement seen. Bret Rawls MD Objective Remarks Gen: Appears comfortable not in any acute distress, patient is confused-- quite aphasic at this time- MUMBLES Head: Atraumatic. PERRLA EOMI TONGUE MIDLINE Neck: Supple, airway widely patent. Lungs: Clear to auscultation bilaterally. Heart: RRR, No JVD.S1, S2 NO S3 OR S4 Abdomen: Soft, no guarding. No tenderness. Extremities: Warm, well perfused. No clubbing or cyanosis or edema has right lower extremity police monitor in place Neuro: Moves 4 limbs to command. Hand grasps 5/5 on left upper extremity, strength 4/5 on right upper and lower extremity. EOMIs intact. Speech NOT clear but difficulty finding words. Awake and alert oriented to person only. Psych: Mood and affect INappropriate. Procedures None Medications and IVs Current Medications Sodium Chloride 1,000 ml @ 50 mls/hr Q20H IV Last administered on 05/23/17 04: 54; Start 05/20/17 at 09:00; Stop 05/23/17 at 18:53; Status DC Acetaminophen (Tylenol) 650 mg Q6H PRN PO PAIN 1-10 AND/OR FEVER >101F Last administered on 05/20/17at 22:48; Start 05/20/17 at 09:00 Morphine Sulfate (Morphine Inj) 2 mg Q2H PRN IV PUSH PAIN SCALE 6 TO 10 Last administered on 05/23/17at 10:38; Start 05/20/17 at 09:00 Famotidine (Pepcid Inj) 20 mg Q12HR IV PUSH Last administered on 05/29/17at 08: 19; Start 05/20/17 at 09:00 Ondansetron HCl (Zofran Inj) 4 mg Q6H PRN IV PUSH NAUSEA OR VOMITING; Start 05/20/17 at 09:00 Miscellaneous Information 1 Q361D XX Last administered on 05/20/17at 09:00; Start 05/20/17 at 09:00 Chlorhexidine Gluconate (Chlorhexidine 2% Cloth) Taper DAILY@04 TOP Last administered on 05/21/17at 04:00; Start 05/21/17 at 04:00; Stop 05/17/18 at 03:59 Chlorhexidine Gluconate (Chlorhexidine 2% Cloth) 3 pack UNSCH PRN TOP HYGIENIC CARE; Start 05/20/17 at 09:00 Senna/Docusate Sodium (Jaqui-Colace) 1 tab BID PO Last administered on at 08:19; Start 05/20/17 at 09:00 Magnesium Hydroxide (Milk Of Magnesia Liq) 30 ml Q12H PRN PO Mild constipation ; Start 05/20/17 at 09:00 Sennosides (Senokot) 17.2 mg Q12H PRN PO Moderate constipation; Start 05/20/17 at 09:00 Bisacodyl (Dulcolax Supp) 10 mg DAILY PRN RECTAL SEVERE CONSITIPATION; Start at 09:00 Lactulose (Lactulose Liq) 30 ml DAILY PRN PO SEVERE CONSITIPATION; Start at 09:00 Levetriacetam 500 mg/Sodium Chloride 105 ml @ 420 mls/hr Q12HR IV Last administered on 05/29/17at 08:22; Start 05/20/17 at 09:00 Gadodiamide (Omniscan Pf Inj) 15 ml STK-MED ONCE IVCONTRAST Last administered on 05/20/17at 17:17; Start 05/20/17 at 17:17; Stop 05/20/17 at 17:18; Status DC Potassium Chloride 100 ml @ 50 mls/hr Q2H PRN IV For Potassium 2.8 - 3.2 mEq/L ; Start 05/21/17 at 06:00; Stop 05/21/17 at 16:52; Status DC Potassium Chloride 100 ml @ 50 mls/hr Q2H PRN IV For Potassium 2.8 - 3.2 mEq/ L Last administered on 05/21/17at 14:35; Start 05/21/17 at 06:00; Stop 05/21/17 at 16:52; Status DC Potassium Bicarb/ Potassium Chloride (K-Lyte Cl Eff) 50 meq UNSCH PRN PO For Potassium 3.3 - 3.5 mEq/L; Start 05/21/17 at 06:00; Stop 05/21/17 at 16:52; Status DC Potassium Chloride 100 ml @ 25 mls/hr UNSCH PRN IV For Potassium 3.3 - 3.5 mEq /L; Start 05/21/17 at 06:00; Stop 05/21/17 at 16:52; Status DC Potassium Chloride 100 ml @ 50 mls/hr Q2H PRN IV For Potassium 3.3 - 3.5 mEq/L ; Start 05/21/17 at 06:00; Stop 05/21/17 at 16:52; Status DC Magnesium Sulfate 4 gm/Sodium Chloride 100 ml @ 50 mls/hr UNSCH PRN IV For Magnesium 0.9 - 1.1 mg/dL; Start 05/21/17 at 06:00; Stop 05/21/17 at 16:52; Status DC Magnesium Oxide (Mag-Ox) 800 mg UNSCH PRN PO For Magnesium 1.2 - 1.6 mg/dL; Start 05/21/17 at 06:00; Stop 05/21/17 at 16:52; Status DC Magnesium Sulfate 2 gm/Sodium Chloride 100 ml @ 50 mls/hr UNSCH PRN IV For Magnesium 1.2 - 1.6 mg/dL; Start 05/21/17 at 06:00; Stop 05/21/17 at 16:52; Status DC Potassium Phosphate (K-Phos) 2,000 mg Q4H PRN PO For Phosphorus < 2.5 mg/dL; Start 05/21/17 at 06:00; Stop 05/21/17 at 16:52; Status DC Sodium Phosphate 30 mmol/Sodium Chloride 250 ml @ 42 mls/hr UNSCH PRN IV For Phosphorus < 2.5 mg/dL; Start 05/21/17 at 06:00; Stop 05/21/17 at 16:52; Status DC Potassium Phosphate (K-Phos) 2,000 mg UNSCH PRN PO/TUBE SEE LABEL COMMENTS; Start 05/21/17 at 06:00; Stop 05/21/17 at 16:52; Status DC Potassium Phosphate 30 mmol/ Sodium Chloride 260 ml @ 42 mls/hr UNSCH PRN IV SEE LABEL COMMENTS; Start 05/21/17 at 06:00; Stop 05/21/17 at 16:52; Status DC Potassium Bicarb/ Potassium Chloride (K-Lyte Cl Eff) 50 meq ONCE ONCE PO Last administered on 05/22/17at 18:40; Start 05/22/17 at 16:00; Stop 05/22/17 at 16: 01; Status DC Dextrose/Sodium Chloride 1,000 ml @ 100 mls/hr Q10H IV Last administered on 05/22/17at 15:45; Start 05/22/17 at 15:45; Stop 05/23/17 at 01:44; Status DC Potassium Chloride (KCl) 30 meq ONCE ONCE PO ; Start 05/23/17 at 19:00; Stop 05/23/17 at 19:44; Status DC Potassium Chloride (KCl) 40 meq ONCE ONCE PO ; Start 05/24/17 at 12:15; Stop 05/24/17 at 12:16; Status DC Megestrol Acetate (Megace Liq) 400 mg DAILY PO Last administered on 05/29/17at 08:19; Start 05/25/17 at 15:00 Potassium Bicarb/ Potassium Chloride (K-Lyte Cl Eff) 50 meq ONCE ONCE PO Last administered on 05/26/17at 15:07; Start 05/26/17 at 12:30; Stop 05/26/17 at 13: 24; Status DC Magnesium Sulfate/ Dextrose 100 ml @ 100 mls/hr ONCE ONCE IV Last administered on 05/26/17at 15:09; Start 05/26/17 at 12:30; Stop 05/26/17 at 13:29; Status DC A/P Problem List: (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 Neurosurgery consult appreciated. - Maintain SBP < 140. - HOB up. - follow up with neurosurgery. - Keppra for seizure prophylaxis. - No indication for Decadron at this time. - PT/ OT/ ST. No indication for surgical intervention at this point. Hypokalemia 05/25 potassium level still low at 3.3. Continue to replace orally and monitor BMP. RESOLVED Hypoglycemia Likely secondary to decreased by mouth intake. - D5 normal saline. - Add Ensure to meals. - Monitor BMP. IV fluids discontinued on 05/23. 05/25 no episodes of hypoglycemia. Poor oral intake As per RN the patient is not eating much. Consult dietitian. Start the patient on Megace. SEVERE DECONDITIONING-CONTINUE PT AND OT PPx: SCDs Discharge Planning Patient is not a safe discharge due to weakness. The patient cannot be discharged to a rehab facility given that he is on house arrest. Discussed with showcase trimmer. Will order PT for 7 days a week. Saroj Frey DO May 29, 2017 10:49
[2017-05-30] VITALS (9 sets, daily range): BP systolic 132–142; BP diastolic 80–95; PULSE 105–115; RESP 16–20; TEMP 97.2–98.8; O2SAT 94–97
[2017-05-30] MEDS: CHLORHEXIDINE GLUCONATE 2 % 1 PACK (2 CLOTHS) TOP SCH (04:00)
[2017-05-30] MEDS: DOCUSATE SODIUM 50 MG/SENNA 8.6 MG TAB PO SCH ×2 (09:26→21:59)
[2017-05-30] MEDS: MEGESTROL ACETATE SUSP 400 MG/10 ML CUP PO SCH (09:26)
[2017-05-30] MEDS: levETIRAcetam INJ 500 MG in SODIUM CHLORIDE 0.9% INJ 100 ML IV SCH ×2 (09:27→21:59)
[2017-05-30] MEDS: FAMOTIDINE 20 MG/2 ML VIAL IV PUSH SCH ×2 (09:27→21:59)
[2017-05-30 11:17] LABS: AUTOMATED NEUTROPHIL # 10.4 TH/MM3 (1.8-7.7); BASOPHIL # 0.1 TH/MM3 (0-0.2); BASOPHIL % 0.5 % (0.0-2.0); EOSINOPHIL # 0.2 TH/MM3 (0-0.4); EOSINOPHIL % 1.2 % (0.0-4.0); HEMATOCRIT 31.4 % (39.0-51.0); HEMOGLOBIN 10.6 GM/DL (13.0-17.0); LYMPH % 15.1 % (9.0-44.0); MEAN CELL VOLUME 103.4 FL (80.0-100.0); MEAN CORPUSCULAR HGB CONC 33.9 % (32.0-36.0); MEAN PLATELET VOLUME 7.7 FL (7.0-11.0); MONO % 6.2 % (0.0-8.0); MONOCYTE # 0.8 TH/MM3 (0-0.9); PLATELET COUNT 79 TH/MM3 (150-450); RED BLOOD COUNT 3.03 MIL/MM3 (4.50-5.90); RED CELL DISTRIBUTION WIDTH 17.6 % (11.6-17.2); WHITE BLOOD COUNT 13.5 TH/MM3 (4.0-11.0)
[2017-05-30 12:02] LABS: BANDS 29 % (0-6); CORRECTED NUCLEATED RBC 1 /100 WBC (0-0); LYMPHOCYTES 17 % (9-44); METAMYELOCYTES 1 % (0-1); MONOCYTES 3 % (0-8); MYELOCYTES 1 % (0-0); NEUTROPHIL # MANUAL DIFF 10.8 TH/MM3 (1.8-7.7); NUCLEATED RED BLOOD CELL 1 (0-0); POLYS (SEG NEUTROPHILS) 49 % (16-70); TOXIC VACUOLATION PRESENT (NONE SEEN)
[2017-05-30 12:03] LABS: TEARDROP RBCS 1+ (NORMAL); TOXIC GRANULATION 1+ (NORMAL)
[2017-05-30 12:06] LABS: ALBUMIN 2.8 GM/DL (3.4-5.0); ALKALINE PHOSPHATASE 188 U/L (45-117); ALT (GPT) 19 U/L (12-78); AST (GOT) 22 U/L (15-37); BLOOD UREA NITROGEN 20 MG/DL (7-18); CALCIUM 10.2 MG/DL (8.5-10.1); CHLORIDE 106 MEQ/L (98-107); CREATININE 0.73 MG/DL (0.60-1.30); GLOMERULAR FILTRATION RATE 136 ML/MIN (>89); GLUCOSE,RANDOM 131 MG/DL (74-106); MAGNESIUM 1.9 MG/DL (1.5-2.5); PHOSPHORUS 3.4 MG/DL (2.5-4.9); SODIUM (NA) 142 MEQ/L (136-145); TOTAL BILIRUBIN ADULT 0.4 MG/DL (0.2-1.0); TOTAL PROTEIN 7.6 GM/DL (6.4-8.2)
--- NOTE | 2017-05-30 12:24 | HHI.PR ---
Subjective Remarks 3-9 FAMILY WANTS HOSPICE INVOLVED WILL MAKE SURE PALLIATIVE CARE IS INVOLVED IF NOT ON THE CASE YET NO CURRENT COMPLAINTS DW RN AND PT PT AND OT TO EVAL DIFFICULT PLACEMENT ISSUE DUE TO ANKLE MONITOR IN PLACE 3-10 FAMILY NEEDS TO TALK WITH HOSPICE AND PALLIATIVE CARE TO MAKE DECISIONS ON HIS CARE HOME CARE GOALS PT NOT ABLE TO COMMUNICATE HIS WISHES TO ME GÓMEZ DW RN AND CM 3-11 NOT TALKATIVE TODAY FAMILY TO WORK WITH PALLIATIVE CARE TOMORROW DW RN AND CM 3-12 UTTERS FEW WORDS TODAY DW RN AND CM FAMILY NEEDS TO MAKE DECISIONS 3-13 NOT TO TALKATIVE TODAY DW RN AND CM FAMILY STILL NEEDS TO MAKE DECISIONS Objective Vitals Vital Signs Date Time Temp Pulse Resp B/P (MAP) Pulse Ox O2 Delivery O2 Flow Rate FiO2 05/30/17 12:09 97.2 112 16 137/92 (107) 94 05/30/17 08:00 106 05/30/17 07:55 97.7 105 17 140/89 (106) 97 05/30/17 04:41 97.7 109 18 142/95 (111) 95 05/30/17 01:18 98.8 112 18 135/80 (98) 95 05/30/17 00:30 107 05/29/17 20:59 97.0 117 18 135/88 (104) 94 05/29/17 20:30 114 05/29/17 16:46 98.2 104 18 129/85 (100) 94 I/O 05/29/17 05/29/17 05/29/17 05/30/17 05/30/17 05/30/17 07:00 15:00 23:00 07:00 15:00 23:00 Intake Total 240 ml 105 ml Balance 240 ml 105 ml Intake Oral 240 ml IV Total 105 ml # Voids 4 4 Result Diagram: 05/30/17 1055 05/30/17 1055 Other Results Laboratory Tests Test 05/30/17 10:55 White Blood Count 13.5 TH/MM3 Red Blood Count 3.03 MIL/MM3 Hemoglobin 10.6 GM/DL Hematocrit 31.4 % Mean Corpuscular Volume 103.4 FL Mean Corpuscular Hemoglobin 35.0 PG Mean Corpuscular Hemoglobin Concent 33.9 % Red Cell Distribution Width 17.6 % Platelet Count 79 TH/MM3 Mean Platelet Volume 7.7 FL Neutrophils (%) (Auto) 77.0 % Lymphocytes (%) (Auto) 15.1 % Monocytes (%) (Auto) 6.2 % Eosinophils (%) (Auto) 1.2 % Basophils (%) (Auto) 0.5 % Neutrophils # (Auto) 10.4 TH/MM3 Lymphocytes # (Auto) 2.0 TH/MM3 Monocytes # (Auto) 0.8 TH/MM3 Eosinophils # (Auto) 0.2 TH/MM3 Basophils # (Auto) 0.1 TH/MM3 CBC Comment AUTO DIFF Differential Total Cells Counted 100 Neutrophils % (Manual) 49 % Band Neutrophils % 29 % Lymphocytes % 17 % Monocytes % 3 % Neutrophils # (Manual) 10.8 TH/MM3 Metamyelocytes 1 % Myelocytes 1 % Nucleated Red Blood Cells 1 /100 WBC Differential Comment FINAL DIFF MANUAL Toxic Granulation 1+ Toxic Vacuolation PRESENT Platelet Estimate LOW Platelet Morphology Comment NORMAL Tear Drop Cells 1+ Blood Urea Nitrogen 20 MG/DL Creatinine 0.73 MG/DL Random Glucose 131 MG/DL Total Protein 7.6 GM/DL Albumin 2.8 GM/DL Calcium Level 10.2 MG/DL Phosphorus Level 3.4 MG/DL Magnesium Level 1.9 MG/DL Alkaline Phosphatase 188 U/L Aspartate Amino Transf (AST/SGOT) 22 U/L Alanine Aminotransferase (ALT/SGPT) 19 U/L Total Bilirubin 0.4 MG/DL Sodium Level 142 MEQ/L Potassium Level 3.5 MEQ/L Chloride Level 106 MEQ/L Carbon Dioxide Level 24.0 MEQ/L Anion Gap 12 MEQ/L Estimat Glomerular Filtration Rate 136 ML/MIN Imaging Last Impressions Head CT 05/20/17 0000 Signed Impressions: Service Date/Time: Saturday, May 20, 2017 09:29 - CONCLUSION: Left temporal encephalomalacia defect with significant fluid herniating out of the craniotomy defect. No evidence of acute hemorrhage or acute process. Rick Rojas MD Brain MRI 05/20/17 0000 Signed Impressions: Service Date/Time: Saturday, May 20, 2017 16:57 - CONCLUSION: Enhancing lesion in the right temporal region and postoperative changes left temporal lobe with mild peripheral enhancement seen. Bret Rawls MD Objective Remarks Gen: Appears comfortable not in any acute distress, patient is confused-- quite aphasic at this time- MUMBLES Head: Atraumatic. PERRLA EOMI TONGUE MIDLINE Neck: Supple, airway widely patent. Lungs: Clear to auscultation bilaterally. Heart: RRR, No JVD.S1, S2 NO S3 OR S4 Abdomen: Soft, no guarding. No tenderness. Extremities: Warm, well perfused. No clubbing or cyanosis or edema has right lower extremity police monitor in place Neuro: Moves 4 limbs to command. Hand grasps 5/5 on left upper extremity, strength 4/5 on right upper and lower extremity. EOMIs intact. Speech NOT clear but difficulty finding words. Awake and alert oriented to person only. Psych: Mood and affect INappropriate. Procedures None Medications and IVs Current Medications Sodium Chloride 1,000 ml @ 50 mls/hr Q20H IV Last administered on 05/23/17 04: 54; Start 05/20/17 at 09:00; Stop 05/23/17 at 18:53; Status DC Acetaminophen (Tylenol) 650 mg Q6H PRN PO PAIN 1-10 AND/OR FEVER >101F Last administered on 05/20/17at 22:48; Start 05/20/17 at 09:00 Morphine Sulfate (Morphine Inj) 2 mg Q2H PRN IV PUSH PAIN SCALE 6 TO 10 Last administered on 05/23/17at 10:38; Start 05/20/17 at 09:00 Famotidine (Pepcid Inj) 20 mg Q12HR IV PUSH Last administered on 05/30/17 09: 27; Start 05/20/17 at 09:00 Ondansetron HCl (Zofran Inj) 4 mg Q6H PRN IV PUSH NAUSEA OR VOMITING; Start 05/20/17 at 09:00 Miscellaneous Information 1 Q361D XX Last administered on 05/20/17at 09:00; Start 05/20/17 at 09:00 Chlorhexidine Gluconate (Chlorhexidine 2% Cloth) Taper DAILY@04 TOP Last administered on 05/21/17at 04:00; Start 05/21/17 at 04:00; Stop 05/17/18 at 03:59 Chlorhexidine Gluconate (Chlorhexidine 2% Cloth) 3 pack UNSCH PRN TOP HYGIENIC CARE; Start 05/20/17 at 09:00 Senna/Docusate Sodium (Jauqi-Colace) 1 tab BID PO Last administered on at 09:26; Start 05/20/17 at 09:00 Magnesium Hydroxide (Milk Of Magnesia Liq) 30 ml Q12H PRN PO Mild constipation ; Start 05/20/17 at 09:00 Sennosides (Senokot) 17.2 mg Q12H PRN PO Moderate constipation; Start 05/20/17 at 09:00 Bisacodyl (Dulcolax Supp) 10 mg DAILY PRN RECTAL SEVERE CONSITIPATION; Start at 09:00 Lactulose (Lactulose Liq) 30 ml DAILY PRN PO SEVERE CONSITIPATION; Start at 09:00 Levetriacetam 500 mg/Sodium Chloride 105 ml @ 420 mls/hr Q12HR IV Last administered on 05/30/17at 09:27; Start 05/20/17 at 09:00 Gadodiamide (Omniscan Pf Inj) 15 ml STK-MED ONCE IVCONTRAST Last administered on 05/20/17at 17:17; Start 05/20/17 at 17:17; Stop 05/20/17 at 17:18; Status DC Potassium Chloride 100 ml @ 50 mls/hr Q2H PRN IV For Potassium 2.8 - 3.2 mEq/L ; Start 05/21/17 at 06:00; Stop 05/21/17 at 16:52; Status DC Potassium Chloride 100 ml @ 50 mls/hr Q2H PRN IV For Potassium 2.8 - 3.2 mEq/ L Last administered on 05/21/17at 14:35; Start 05/21/17 at 06:00; Stop 05/21/17 at 16:52; Status DC Potassium Bicarb/ Potassium Chloride (K-Lyte Cl Eff) 50 meq UNSCH PRN PO For Potassium 3.3 - 3.5 mEq/L; Start 05/21/17 at 06:00; Stop 05/21/17 at 16:52; Status DC Potassium Chloride 100 ml @ 25 mls/hr UNSCH PRN IV For Potassium 3.3 - 3.5 mEq /L; Start 05/21/17 at 06:00; Stop 05/21/17 at 16:52; Status DC Potassium Chloride 100 ml @ 50 mls/hr Q2H PRN IV For Potassium 3.3 - 3.5 mEq/L ; Start 05/21/17 at 06:00; Stop 05/21/17 at 16:52; Status DC Magnesium Sulfate 4 gm/Sodium Chloride 100 ml @ 50 mls/hr UNSCH PRN IV For Magnesium 0.9 - 1.1 mg/dL; Start 05/21/17 at 06:00; Stop 05/21/17 at 16:52; Status DC Magnesium Oxide (Mag-Ox) 800 mg UNSCH PRN PO For Magnesium 1.2 - 1.6 mg/dL; Start 05/21/17 at 06:00; Stop 05/21/17 at 16:52; Status DC Magnesium Sulfate 2 gm/Sodium Chloride 100 ml @ 50 mls/hr UNSCH PRN IV For Magnesium 1.2 - 1.6 mg/dL; Start 05/21/17 at 06:00; Stop 05/21/17 at 16:52; Status DC Potassium Phosphate (K-Phos) 2,000 mg Q4H PRN PO For Phosphorus < 2.5 mg/dL; Start 05/21/17 at 06:00; Stop 05/21/17 at 16:52; Status DC Sodium Phosphate 30 mmol/Sodium Chloride 250 ml @ 42 mls/hr UNSCH PRN IV For Phosphorus < 2.5 mg/dL; Start 05/21/17 at 06:00; Stop 05/21/17 at 16:52; Status DC Potassium Phosphate (K-Phos) 2,000 mg UNSCH PRN PO/TUBE SEE LABEL COMMENTS; Start 05/21/17 at 06:00; Stop 05/21/17 at 16:52; Status DC Potassium Phosphate 30 mmol/ Sodium Chloride 260 ml @ 42 mls/hr UNSCH PRN IV SEE LABEL COMMENTS; Start 05/21/17 at 06:00; Stop 05/21/17 at 16:52; Status DC Potassium Bicarb/ Potassium Chloride (K-Lyte Cl Eff) 50 meq ONCE ONCE PO Last administered on 05/22/17at 18:40; Start 05/22/17 at 16:00; Stop 05/22/17 at 16: 01; Status DC Dextrose/Sodium Chloride 1,000 ml @ 100 mls/hr Q10H IV Last administered on 05/22/17at 15:45; Start 05/22/17 at 15:45; Stop 05/23/17 at 01:44; Status DC Potassium Chloride (KCl) 30 meq ONCE ONCE PO ; Start 05/23/17 at 19:00; Stop 05/23/17 at 19:44; Status DC Potassium Chloride (KCl) 40 meq ONCE ONCE PO ; Start 05/24/17 at 12:15; Stop 05/24/17 at 12:16; Status DC Megestrol Acetate (Megace Liq) 400 mg DAILY PO Last administered on 05/30/17at 09:26; Start 05/25/17 at 15:00 Potassium Bicarb/ Potassium Chloride (K-Lyte Cl Eff) 50 meq ONCE ONCE PO Last administered on 05/26/17at 15:07; Start 05/26/17 at 12:30; Stop 05/26/17 at 13: 24; Status DC Magnesium Sulfate/ Dextrose 100 ml @ 100 mls/hr ONCE ONCE IV Last administered on 05/26/17at 15:09; Start 05/26/17 at 12:30; Stop 05/26/17 at 13:29; Status DC A/P Problem List: (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 Neurosurgery consult appreciated. - Maintain SBP < 140. - HOB up. - follow up with neurosurgery. - Keppra for seizure prophylaxis. - No indication for Decadron at this time. - PT/ OT/ ST. No indication for surgical intervention at this point. Hypokalemia 05/25 potassium level still low at 3.3. Continue to replace orally and monitor BMP. RESOLVED Hypoglycemia Likely secondary to decreased by mouth intake. - D5 normal saline. - Add Ensure to meals. - Monitor BMP. IV fluids discontinued on 05/23. 05/25 no episodes of hypoglycemia. Poor oral intake As per RN the patient is not eating much. Consult dietitian. Start the patient on Megace. SEVERE DECONDITIONING-CONTINUE PT AND OT PPx: SCDs NEEDS PALLIATIVE CARE AND HOSPICE HELP CANNOT GO TO SNF FAMILY NOT HELPING MUCH YET Discharge Planning Patient is not a safe discharge due to weakness. The patient cannot be discharged to a rehab facility given that he is on house arrest. Discussed with supervisor case loading. Will order PT for 7 days a week. Saroj Frey DO May 30, 2017 12:24
--- NOTE | 2017-05-30 13:09 | HHI.HCPN ---
Palliative care continues to follow along with hospice to assist with goals of care. Family has previously indicated they desires transition to comfort measures with hospice support. Hospice has been unable to speak with family as they are not returning calls. Attempted google search to identify other possible contact information for Louie bullard #[phone]-- rings to voicemail Tru Luis Fernando-- left message requesting call back. Potential match found on [employer]. Private message sent requesting call. Palliative care recommends requesting accurint report through case management to have [employer]PER[employer] determine other possible family to get in contact with. Palliative care will continue to be available to address goals of care should family not be ready for hospice services as previously indicated. Irais Luz, ECHO TECHNICIAN May 30, 2017 13:08
[2017-05-31] VITALS (8 sets, daily range): BP systolic 128–141; BP diastolic 80–93; PULSE 68–123; RESP 18–20; TEMP 97.2–98.9; O2SAT 92–96
[2017-05-31] MEDS: CHLORHEXIDINE GLUCONATE 2 % 1 PACK (2 CLOTHS) TOP SCH (04:00)
[2017-05-31] MEDS: DOCUSATE SODIUM 50 MG/SENNA 8.6 MG TAB PO SCH ×3 (09:00→21:00)
[2017-05-31] MEDS: MEGESTROL ACETATE SUSP 400 MG/10 ML CUP PO SCH ×2 (09:00→09:15)
[2017-05-31] MEDS: FAMOTIDINE 20 MG/2 ML VIAL IV PUSH SCH ×2 (09:14→21:17)
[2017-05-31] MEDS: levETIRAcetam INJ 500 MG in SODIUM CHLORIDE 0.9% INJ 100 ML IV SCH ×2 (09:15→21:16)
--- NOTE | 2017-05-31 12:07 | HHI.PR ---
Subjective Remarks 3-9 FAMILY WANTS HOSPICE INVOLVED WILL MAKE SURE PALLIATIVE CARE IS INVOLVED IF NOT ON THE CASE YET NO CURRENT COMPLAINTS DW RN AND PT PT AND OT TO EVAL DIFFICULT PLACEMENT ISSUE DUE TO ANKLE MONITOR IN PLACE 3-10 FAMILY NEEDS TO TALK WITH HOSPICE AND PALLIATIVE CARE TO MAKE DECISIONS ON HIS CARE HOME CARE GOALS PT NOT ABLE TO COMMUNICATE HIS WISHES TO ME GÓMEZ DW RN AND CM 3-11 NOT TALKATIVE TODAY FAMILY TO WORK WITH PALLIATIVE CARE TOMORROW DW RN AND CM 3-12 UTTERS FEW WORDS TODAY DW RN AND CM FAMILY NEEDS TO MAKE DECISIONS 3-13 NOT TO TALKATIVE TODAY DW RN AND CM FAMILY STILL NEEDS TO MAKE DECISIONS 3-14 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 DW RN AND CM FAMILY NEEDS TO MAKE DECISIONS Objective Vitals Vital Signs Date Time Temp Pulse Resp B/P (MAP) Pulse Ox O2 Delivery O2 Flow Rate FiO2 05/31/17 11:15 98.4 113 20 141/80 (100) 94 05/31/17 10:14 99 05/31/17 08:02 98.3 111 20 137/91 (106) 93 05/31/17 00:27 97.2 113 18 130/89 (103) 96 05/30/17 21:00 97.3 114 20 136/86 (103) 94 05/30/17 18:01 112 05/30/17 16:35 97.4 115 18 132/82 (99) 95 05/30/17 12:09 97.2 112 16 137/92 (107) 94 I/O 05/30/17 05/30/17 05/30/17 05/31/17 05/31/17 05/31/17 07:00 15:00 23:00 07:00 15:00 23:00 Intake Total 705 ml Balance 705 ml Intake Oral 600 ml IV Total 105 ml # Voids 2 1 Result Diagram: 05/30/17 1055 05/30/17 1055 Objective Remarks Gen: Appears comfortable not in any acute distress, patient is confused-- quite aphasic at this time- GÓMEZ Head: Atraumatic. PERRLA EOMI TONGUE MIDLINE Neck: Supple, airway widely patent. Lungs: Clear to auscultation bilaterally. Heart: RRR, No JVD.S1, S2 NO S3 OR S4 Abdomen: Soft, no guarding. No tenderness. Extremities: Warm, well perfused. No clubbing or cyanosis or edema has right lower extremity police monitor in place Neuro: Moves 4 limbs to command. Hand grasps 5/5 on left upper extremity, strength 4/5 on right upper and lower extremity. EOMIs intact. Speech NOT clear but difficulty finding words. Awake and alert oriented to person only. Psych: Mood and affect INappropriate. Procedures None A/P Problem List: (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 Neurosurgery consult appreciated. - Maintain SBP < 140. - HOB up. - follow up with neurosurgery. - Keppra for seizure prophylaxis. - No indication for Decadron at this time. - PT/ OT/ ST. No indication for surgical intervention at this point. Hypokalemia 05/25 potassium level still low at 3.3. Continue to replace orally and monitor BMP. RESOLVED Hypoglycemia Likely secondary to decreased by mouth intake. - D5 normal saline. - Add Ensure to meals. - Monitor BMP. IV fluids discontinued on 05/23. 05/25 no episodes of hypoglycemia. Poor oral intake As per RN the patient is not eating much. Consult dietitian. Start the patient on Megace. SEVERE DECONDITIONING-CONTINUE PT AND OT PPx: SCDs NEEDS PALLIATIVE CARE AND HOSPICE HELP CANNOT GO TO SNF FAMILY NOT HELPING MUCH YET Discharge Planning Patient is not a safe discharge due to weakness. The patient cannot be discharged to a rehab facility given that he is on house arrest. Discussed with piano case and bench assembler. Will order PT for 7 days a week. Saroj Frey DO May 31, 2017 12:07
--- NOTE | 2017-05-31 12:47 | HHI.HCPN ---
Received accurint results. No additional family/contact information found. Since family was reachable a few days ago, would need to give a reasonable amount of time for family to respond before proceeding with alternate health care proxy options, and would recommend consulting with [facility] legal [place] on this matter. Palliative care will continue to be available to address goals of care as needed. Unable to assist with goals of care until legal proxy decision maker is identified. Notes indicate family requested hospice services and transition to comfort previously; hospice following. Irais Luz, CRYPTOGRAPHER May 31, 2017 12:47
[2017-06-01] VITALS (9 sets, daily range): BP systolic 120–131; BP diastolic 67–88; PULSE 67–115; RESP 16–22; TEMP 97.5–98.8; O2SAT 94–98
[2017-06-01] MEDS: CHLORHEXIDINE GLUCONATE 2 % 1 PACK (2 CLOTHS) TOP SCH (04:00)
[2017-06-01 06:46] LABS: AUTOMATED NEUTROPHIL # 10.1 TH/MM3 (1.8-7.7); BASOPHIL # 0.1 TH/MM3 (0-0.2); BASOPHIL % 0.5 % (0.0-2.0); EOSINOPHIL # 0.1 TH/MM3 (0-0.4); HEMOGLOBIN 10.3 GM/DL (13.0-17.0); LYMPH % 17.7 % (9.0-44.0); LYMPHOCYTE # 2.4 TH/MM3 (1.0-4.8); MEAN CELL VOLUME 103.4 FL (80.0-100.0); MEAN CORPUSCULAR HEMOGLOBIN 34.2 PG (27.0-34.0); MEAN CORPUSCULAR HGB CONC 33.1 % (32.0-36.0); MEAN PLATELET VOLUME 8.2 FL (7.0-11.0); MONO % 7.8 % (0.0-8.0); MONOCYTE # 1.1 TH/MM3 (0-0.9); PLATELET COUNT 79 TH/MM3 (150-450); RED CELL DISTRIBUTION WIDTH 17.6 % (11.6-17.2); WHITE BLOOD COUNT 13.8 TH/MM3 (4.0-11.0)
[2017-06-01 07:23] LABS: ALBUMIN 2.9 GM/DL (3.4-5.0); ALKALINE PHOSPHATASE 201 U/L (45-117); ALT (GPT) 21 U/L (12-78); AST (GOT) 28 U/L (15-37); BICARBONATE 24.6 MEQ/L (21.0-32.0); BLOOD UREA NITROGEN 26 MG/DL (7-18); CHLORIDE 110 MEQ/L (98-107); CREATININE 0.73 MG/DL (0.60-1.30); GLOMERULAR FILTRATION RATE 136 ML/MIN (>89); GLUCOSE,RANDOM 101 MG/DL (74-106); MAGNESIUM 2.1 MG/DL (1.5-2.5); PHOSPHORUS 3.6 MG/DL (2.5-4.9); SODIUM (NA) 146 MEQ/L (136-145); TOTAL BILIRUBIN ADULT 0.4 MG/DL (0.2-1.0); TOTAL PROTEIN 7.8 GM/DL (6.4-8.2)
[2017-06-01] MEDS: FAMOTIDINE 20 MG/2 ML VIAL IV PUSH SCH ×2 (08:18→21:10)
[2017-06-01] MEDS: levETIRAcetam INJ 500 MG in SODIUM CHLORIDE 0.9% INJ 100 ML IV SCH ×2 (08:18→21:11)
[2017-06-01] MEDS: MEGESTROL ACETATE SUSP 400 MG/10 ML CUP PO SCH (08:19)
[2017-06-01] MEDS: DOCUSATE SODIUM 50 MG/SENNA 8.6 MG TAB PO SCH ×2 (08:20→21:16)
[2017-06-01 09:34] LABS: BANDS 12 % (0-6); CORRECTED NUCLEATED RBC 3 /100 WBC (0-0); LYMPHOCYTES 19 % (9-44); METAMYELOCYTES 1 % (0-1); MONOCYTES 13 % (0-8); MYELOCYTES 4 % (0-0); NEUTROPHIL # MANUAL DIFF 9.4 TH/MM3 (1.8-7.7); NUCLEATED RED BLOOD CELL 3 (0-0); POLYS (SEG NEUTROPHILS) 51 % (16-70); TEARDROP RBCS 1+ (NORMAL)
--- NOTE | 2017-06-01 13:12 | HHI.PR ---
Subjective Remarks 3-9 FAMILY WANTS HOSPICE INVOLVED WILL MAKE SURE PALLIATIVE CARE IS INVOLVED IF NOT ON THE CASE YET NO CURRENT COMPLAINTS DW RN AND PT PT AND OT TO EVAL DIFFICULT PLACEMENT ISSUE DUE TO ANKLE MONITOR IN PLACE 3-10 FAMILY NEEDS TO TALK WITH HOSPICE AND PALLIATIVE CARE TO MAKE DECISIONS ON HIS RESIDENTIAL CARE GOALS PT NOT ABLE TO COMMUNICATE HIS WISHES TO ME GÓMEZ DW RN AND CM 3-11 NOT TALKATIVE TODAY FAMILY TO WORK WITH PALLIATIVE CARE TOMORROW DW RN AND CM 3-12 UTTERS FEW WORDS TODAY DW RN AND CM FAMILY NEEDS TO MAKE DECISIONS 3-13 NOT TO TALKATIVE TODAY DW RN AND CM FAMILY STILL NEEDS TO MAKE DECISIONS 3-14 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 DW RN AND CM FAMILY NEEDS TO MAKE DECISIONS 3-15 NO FAMILY TO MAKE DECISIONS YET NO COMPLAINTS Objective Vitals Vital Signs Date Time Temp Pulse Resp B/P (MAP) Pulse Ox O2 Delivery O2 Flow Rate FiO2 06/01/17 12:53 97.5 109 18 131/76 (94) 98 06/01/17 12:25 112 06/01/17 08:00 98.0 112 16 123/88 (100) 94 06/01/17 05:30 97.7 67 19 127/67 (87) 95 06/01/17 00:20 98.8 110 20 130/76 (94) 96 05/31/17 20:44 98.9 123 20 140/93 (109) 92 05/31/17 20:00 68 05/31/17 16:25 98.5 111 20 128/84 (99) 95 05/31/17 14:12 115 I/O 05/31/17 05/31/17 05/31/17 06/01/17 06/01/17 06/01/17 06:59 14:59 22:59 06:59 14:59 22:59 Intake Total 105 ml 480 ml 350 ml Balance 105 ml 480 ml 350 ml Intake Oral 480 ml 350 ml IV Total 105 ml # Voids 1 3 4 # Bowel Movements 1 0 Result Diagram: 06/01/17 0550 06/01/17 0550 Other Results Laboratory Tests Test 05/30/17 10:55 06/01/17 05:50 White Blood Count 13.5 TH/MM3 13.8 TH/MM3 Red Blood Count 3.03 MIL/MM3 3.00 MIL/MM3 Hemoglobin 10.6 GM/DL 10.3 GM/DL Hematocrit 31.4 % 31.0 % Mean Corpuscular Volume 103.4 FL 103.4 FL Mean Corpuscular Hemoglobin 35.0 PG 34.2 PG Mean Corpuscular Hemoglobin Concent 33.9 % 33.1 % Red Cell Distribution Width 17.6 % 17.6 % Platelet Count 79 TH/MM3 79 TH/MM3 Mean Platelet Volume 7.7 FL 8.2 FL Neutrophils (%) (Auto) 77.0 % 73.0 % Lymphocytes (%) (Auto) 15.1 % 17.7 % Monocytes (%) (Auto) 6.2 % 7.8 % Eosinophils (%) (Auto) 1.2 % 1.0 % Basophils (%) (Auto) 0.5 % 0.5 % Neutrophils # (Auto) 10.4 TH/MM3 10.1 TH/MM3 Lymphocytes # (Auto) 2.0 TH/MM3 2.4 TH/MM3 Monocytes # (Auto) 0.8 TH/MM3 1.1 TH/MM3 Eosinophils # (Auto) 0.2 TH/MM3 0.1 TH/MM3 Basophils # (Auto) 0.1 TH/MM3 0.1 TH/MM3 CBC Comment AUTO DIFF AUTO DIFF Differential Total Cells Counted 100 100 Neutrophils % (Manual) 49 % 51 % Band Neutrophils % 29 % 12 % Lymphocytes % 17 % 19 % Monocytes % 3 % 13 % Neutrophils # (Manual) 10.8 TH/MM3 9.4 TH/MM3 Metamyelocytes 1 % 1 % Myelocytes 1 % 4 % Nucleated Red Blood Cells 1 /100 WBC 3 /100 WBC Differential Comment FINAL DIFF MANUAL FINAL DIFF MANUAL Toxic Granulation 1+ Toxic Vacuolation PRESENT Platelet Estimate LOW LOW Platelet Morphology Comment NORMAL NORMAL Tear Drop Cells 1+ 1+ Blood Urea Nitrogen 20 MG/DL 26 MG/DL Creatinine 0.73 MG/DL 0.73 MG/DL Random Glucose 131 MG/DL 101 MG/DL Total Protein 7.6 GM/DL 7.8 GM/DL Albumin 2.8 GM/DL 2.9 GM/DL Calcium Level 10.2 MG/DL 11.0 MG/DL Phosphorus Level 3.4 MG/DL 3.6 MG/DL Magnesium Level 1.9 MG/DL 2.1 MG/DL Alkaline Phosphatase 188 U/L 201 U/L Aspartate Amino Transf (AST/SGOT) 22 U/L 28 U/L Alanine Aminotransferase (ALT/SGPT) 19 U/L 21 U/L Total Bilirubin 0.4 MG/DL 0.4 MG/DL Sodium Level 142 MEQ/L 146 MEQ/L Potassium Level 3.5 MEQ/L 3.8 MEQ/L Chloride Level 106 MEQ/L 110 MEQ/L Carbon Dioxide Level 24.0 MEQ/L 24.6 MEQ/L Anion Gap 12 MEQ/L 11 MEQ/L Estimat Glomerular Filtration Rate 136 ML/MIN 136 ML/MIN Polychromasia 3.0 % Imaging Last Impressions Head CT 05/20/17 0000 Signed Impressions: Service Date/Time: Saturday, May 20, 2017 09:29 - CONCLUSION: Left temporal encephalomalacia defect with significant fluid herniating out of the craniotomy defect. No evidence of acute hemorrhage or acute process. Rick Rojas MD Brain MRI 05/20/17 0000 Signed Impressions: Service Date/Time: Saturday, May 20, 2017 16:57 - CONCLUSION: Enhancing lesion in the right temporal region and postoperative changes left temporal lobe with mild peripheral enhancement seen. Bret Rawls MD Objective Remarks Gen: Appears comfortable not in any acute distress, patient is confused-- quite aphasic at this time- MUMBLES Head: Atraumatic. PERRLA EOMI TONGUE MIDLINE Neck: Supple, airway widely patent. Lungs: Clear to auscultation bilaterally. Heart: RRR, No JVD.S1, S2 NO S3 OR S4 Abdomen: Soft, no guarding. No tenderness. Extremities: Warm, well perfused. No clubbing or cyanosis or edema has right lower extremity police monitor in place Neuro: Moves 4 limbs to command. Hand grasps 5/5 on left upper extremity, strength 4/5 on right upper and lower extremity. EOMIs intact. Speech NOT clear but difficulty finding words. Awake and alert oriented to person only. Psych: Mood and affect INappropriate. Procedures None Medications and IVs Current Medications Sodium Chloride 1,000 ml @ 50 mls/hr Q20H IV Last administered on 05/23/17at 04: 54; Start 05/20/17 at 09:00; Stop 05/23/17 at 18:53; Status DC Acetaminophen (Tylenol) 650 mg Q6H PRN PO PAIN 1-10 AND/OR FEVER >101F Last administered on 05/20/17 22:48; Start 05/20/17 at 09:00 Morphine Sulfate (Morphine Inj) 2 mg Q2H PRN IV PUSH PAIN SCALE 6 TO 10 Last administered on 05/23/17at 10:38; Start 05/20/17 at 09:00 Famotidine (Pepcid Inj) 20 mg Q12HR IV PUSH Last administered on 06/01/17at 08: 18; Start 05/20/17 at 09:00 Ondansetron HCl (Zofran Inj) 4 mg Q6H PRN IV PUSH NAUSEA OR VOMITING; Start 05/20/17 at 09:00 Miscellaneous Information 1 [id number] XX Last administered on 05/20/17at 09:00; Start 05/20/17 at 09:00 Chlorhexidine Gluconate (Chlorhexidine 2% Cloth) Taper DAILY@04 TOP Last administered on 05/21/17 04:00; Start 05/21/17 at 04:00; Stop 05/17/18 at 03:59 Chlorhexidine Gluconate (Chlorhexidine 2% Cloth) 3 pack UNSCH PRN TOP HYGIENIC CARE; Start 05/20/17 at 09:00 Senna/Docusate Sodium (Jaqui-Colace) 1 tab BID PO Last administered on at 08:20; Start 05/20/17 at 09:00 Magnesium Hydroxide (Milk Of Magnesia Liq) 30 ml Q12H PRN PO Mild constipation ; Start 05/20/17 at 09:00 Sennosides (Senokot) 17.2 mg Q12H PRN PO Moderate constipation; Start 05/20/17 at 09:00 Bisacodyl (Dulcolax Supp) 10 mg DAILY PRN RECTAL SEVERE CONSITIPATION Last administered on 05/31/17at 18:14; Start 05/20/17 at 09:00 Lactulose (Lactulose Liq) 30 ml DAILY PRN PO SEVERE CONSITIPATION; Start at 09:00 Levetriacetam 500 mg/Sodium Chloride 105 ml @ 420 mls/hr Q12HR IV Last administered on 06/01/17at 08:18; Start 05/20/17 at 09:00 Gadodiamide (Omniscan Pf Inj) 15 ml STK-MED ONCE IVCONTRAST Last administered on 05/20/17at 17:17; Start 05/20/17 at 17:17; Stop 05/20/17 at 17:18; Status DC Potassium Chloride 100 ml @ 50 mls/hr Q2H PRN IV For Potassium 2.8 - 3.2 mEq/L ; Start 05/21/17 at 06:00; Stop 05/21/17 at 16:52; Status DC Potassium Chloride 100 ml @ 50 mls/hr Q2H PRN IV For Potassium 2.8 - 3.2 mEq/ L Last administered on 05/21/17at 14:35; Start 05/21/17 at 06:00; Stop 05/21/17 at 16:52; Status DC Potassium Bicarb/ Potassium Chloride (K-Lyte Cl Eff) 50 meq UNSCH PRN PO For Potassium 3.3 - 3.5 mEq/L; Start 05/21/17 at 06:00; Stop 05/21/17 at 16:52; Status DC Potassium Chloride 100 ml @ 25 mls/hr UNSCH PRN IV For Potassium 3.3 - 3.5 mEq /L; Start 05/21/17 at 06:00; Stop 05/21/17 at 16:52; Status DC Potassium Chloride 100 ml @ 50 mls/hr Q2H PRN IV For Potassium 3.3 - 3.5 mEq/L ; Start 05/21/17 at 06:00; Stop 05/21/17 at 16:52; Status DC Magnesium Sulfate 4 gm/Sodium Chloride 100 ml @ 50 mls/hr UNSCH PRN IV For Magnesium 0.9 - 1.1 mg/dL; Start 05/21/17 at 06:00; Stop 05/21/17 at 16:52; Status DC Magnesium Oxide (Mag-Ox) 800 mg UNSCH PRN PO For Magnesium 1.2 - 1.6 mg/dL; Start 05/21/17 at 06:00; Stop 05/21/17 at 16:52; Status DC Magnesium Sulfate 2 gm/Sodium Chloride 100 ml @ 50 mls/hr UNSCH PRN IV For Magnesium 1.2 - 1.6 mg/dL; Start 05/21/17 at 06:00; Stop 05/21/17 at 16:52; Status DC Potassium Phosphate (K-Phos) 2,000 mg Q4H PRN PO For Phosphorus < 2.5 mg/dL; Start 05/21/17 at 06:00; Stop 05/21/17 at 16:52; Status DC Sodium Phosphate 30 mmol/Sodium Chloride 250 ml @ 42 mls/hr UNSCH PRN IV For Phosphorus < 2.5 mg/dL; Start 05/21/17 at 06:00; Stop 05/21/17 at 16:52; Status DC Potassium Phosphate (K-Phos) 2,000 mg UNSCH PRN PO/TUBE SEE LABEL COMMENTS; Start 05/21/17 at 06:00; Stop 05/21/17 at 16:52; Status DC Potassium Phosphate 30 mmol/ Sodium Chloride 260 ml @ 42 mls/hr UNSCH PRN IV SEE LABEL COMMENTS; Start 05/21/17 at 06:00; Stop 05/21/17 at 16:52; Status DC Potassium Bicarb/ Potassium Chloride (K-Lyte Cl Eff) 50 meq ONCE ONCE PO Last administered on 05/22/17at 18:40; Start 05/22/17 at 16:00; Stop 05/22/17 at 16: 01; Status DC Dextrose/Sodium Chloride 1,000 ml @ 100 mls/hr Q10H IV Last administered on 05/22/17at 15:45; Start 05/22/17 at 15:45; Stop 05/23/17 at 01:44; Status DC Potassium Chloride (KCl) 30 meq ONCE ONCE PO ; Start 05/23/17 at 19:00; Stop 05/23/17 at 19:44; Status DC Potassium Chloride (KCl) 40 meq ONCE ONCE PO ; Start 05/24/17 at 12:15; Stop 05/24/17 at 12:16; Status DC Megestrol Acetate (Megace Liq) 400 mg DAILY PO Last administered on 06/01/17at 08:19; Start 05/25/17 at 15:00 Potassium Bicarb/ Potassium Chloride (K-Lyte Cl Eff) 50 meq ONCE ONCE PO Last administered on 05/26/17at 15:07; Start 05/26/17 at 12:30; Stop 05/26/17 at 13: 24; Status DC Magnesium Sulfate/ Dextrose 100 ml @ 100 mls/hr ONCE ONCE IV Last administered on 05/26/17at 15:09; Start 05/26/17 at 12:30; Stop 05/26/17 at 13:29; Status DC A/P Problem List: (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 Neurosurgery consult appreciated. - Maintain SBP < 140. - HOB up. - follow up with neurosurgery. - Keppra for seizure prophylaxis. - No indication for Decadron at this time. - PT/ OT/ ST. No indication for surgical intervention at this point. Hypokalemia 05/25 potassium level still low at 3.3. Continue to replace orally and monitor BMP. RESOLVED Hypoglycemia Likely secondary to decreased by mouth intake. - D5 normal saline. - Add Ensure to meals. - Monitor BMP. IV fluids discontinued on 05/23. 05/25 no episodes of hypoglycemia. Poor oral intake As per RN the patient is not eating much. Consult dietitian. Start the patient on Megace. SEVERE DECONDITIONING-CONTINUE PT AND OT PPx: SCDs NEEDS PALLIATIVE CARE AND HOSPICE HELP CANNOT GO TO SNF FAMILY NOT HELPING MUCH YET Discharge Planning Patient is not a safe discharge due to weakness. 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 Will order PT for 7 days a week. Saroj Frey DO Jun 01, 2017 13:12
[2017-06-02] VITALS (8 sets, daily range): BP systolic 122–132; BP diastolic 78–88; PULSE 75–116; RESP 18–20; TEMP 97.9–99.3; O2SAT 96–97
[2017-06-02] MEDS: CHLORHEXIDINE GLUCONATE 2 % 1 PACK (2 CLOTHS) TOP SCH (03:08)
[2017-06-02 07:37] LABS: BASOPHIL # 0.1 TH/MM3 (0-0.2); BASOPHIL % 0.5 % (0.0-2.0); EOSINOPHIL # 0.2 TH/MM3 (0-0.4); EOSINOPHIL % 1.2 % (0.0-4.0); HEMATOCRIT 30.5 % (39.0-51.0); HEMOGLOBIN 10.2 GM/DL (13.0-17.0); LYMPH % 16.9 % (9.0-44.0); LYMPHOCYTE # 2.1 TH/MM3 (1.0-4.8); MEAN CORPUSCULAR HGB CONC 33.4 % (32.0-36.0); MEAN PLATELET VOLUME 8.3 FL (7.0-11.0); MONO % 9.8 % (0.0-8.0); MONOCYTE # 1.2 TH/MM3 (0-0.9); NEUT % 71.6 % (16.0-70.0); PLATELET COUNT 87 TH/MM3 (150-450); RED BLOOD COUNT 2.99 MIL/MM3 (4.50-5.90); RED CELL DISTRIBUTION WIDTH 17.5 % (11.6-17.2); WHITE BLOOD COUNT 12.5 TH/MM3 (4.0-11.0)
[2017-06-02 08:04] LABS: ALBUMIN 2.9 GM/DL (3.4-5.0); AST (GOT) 25 U/L (15-37); BICARBONATE 26.2 MEQ/L (21.0-32.0); BLOOD UREA NITROGEN 29 MG/DL (7-18); CALCIUM 10.8 MG/DL (8.5-10.1); CHLORIDE 110 MEQ/L (98-107); CREATININE 0.78 MG/DL (0.60-1.30); GLOMERULAR FILTRATION RATE 126 ML/MIN (>89); GLUCOSE,RANDOM 92 MG/DL (74-106); MAGNESIUM 2.2 MG/DL (1.5-2.5); SODIUM (NA) 147 MEQ/L (136-145)
[2017-06-02 08:06] LABS: ALT (GPT) 20 U/L (12-78); PHOSPHORUS 4.2 MG/DL (2.5-4.9)
[2017-06-02 08:07] LABS: ALKALINE PHOSPHATASE 195 U/L (45-117); TOTAL BILIRUBIN ADULT 0.5 MG/DL (0.2-1.0); TOTAL PROTEIN 7.9 GM/DL (6.4-8.2)
[2017-06-02] MEDS: MEGESTROL ACETATE SUSP 400 MG/10 ML CUP PO SCH (08:10)
[2017-06-02] MEDS: levETIRAcetam INJ 500 MG in SODIUM CHLORIDE 0.9% INJ 100 ML IV SCH ×2 (08:11→21:55)
[2017-06-02] MEDS: DOCUSATE SODIUM 50 MG/SENNA 8.6 MG TAB PO SCH ×2 (08:12→21:55)
[2017-06-02] MEDS: FAMOTIDINE 20 MG/2 ML VIAL IV PUSH SCH ×2 (08:13→21:55)
[2017-06-02 09:21] LABS: BANDS 31 % (0-6); CORRECTED NUCLEATED RBC 8 /100 WBC (0-0); LYMPHOCYTES 14 % (9-44); METAMYELOCYTES 1 % (0-1); MONOCYTES 2 % (0-8); MYELOCYTES 3 % (0-0); NEUTROPHIL # MANUAL DIFF 10.5 TH/MM3 (1.8-7.7); NUCLEATED RED BLOOD CELL 8 (0-0); POLYS (SEG NEUTROPHILS) 49 % (16-70)
[2017-06-02 09:23] LABS: TEARDROP RBCS 1+ (NORMAL); TOXIC GRANULATION 1+ (NORMAL)
[2017-06-02] MEDS: SODIUM CHLOR 0.45% 1000 ML INJ 1,000 ML IV SCH ×2 (11:52→21:55)
--- NOTE | 2017-06-02 16:59 | HHI.HCPN ---
Brief note: Both palliative and hospice initially consult on this patient--hospice has been following palliative did not actually complete initial consultation, as apparently goals were hospice oriented. Some difficulty reaching family for hospice arrangements, hospice met w family today. Hospice admissions nurse notified me today that family requesting to speak w pt doctor or provider regarding hospice, conditions. I went to unit to see pt.and speak w family, answer medical questions. No family present at time of my arrival. He is alert, pleasant, confused. No family present. Hospice nurse indicates they have left. Patient mumbles a few words for me some yes/no. Does not consistently answer questions. Asked him where he is at he tells me "she is doing okay ". Asked him what he is watching on television he mumbles "she's doing okay ". Any questions I ask he states she is doing okay. He does say no when I asked him about pain. He is moving extremities spontaneously, does not follow my commands. PE: gen: alert, confused, thin male , no distress accessories: PIV LUE. skin: warm/dry. +very dry, flaking skin to LE Head: Atraumatic. Neck: trachea midline, supple Lungs: Clear , equal bilaterally. on room air. Unlabored, even resp effort Heart: RRR, no periph edema. Periph pulses palpable Abdomen: Soft, flat, non tender. BS normoactive. Extremities: thin + muscle atrophy. No mottling. No joint tenderness or effusion. Neuro: awake. confused-- appears oriented to self only. Minimally verbal. moving all 4 extremities spont. tracks examiner. poor to no insight at this time. Attempted to reach family "Matias" at # provided: [phone]- VM left. attempted to reach sister Louie [phone] , no answer. . NoemiMiranda mayfield [place] Jun 02, 2017 16:59
--- NOTE | 2017-06-02 23:46 | HHI.PR ---
Subjective Remarks Patient says he knows where he is but is unable to answer. Appears to deny pain. Objective Vital Signs Date Time Temp Pulse Resp B/P (MAP) Pulse Ox O2 Delivery O2 Flow Rate FiO2 06/02/17 23:20 101 06/02/17 22:00 99.3 108 18 125/80 (95) 96 06/02/17 15:33 98.2 111 20 129/85 (100) 97 06/02/17 12:08 98.9 116 20 124/78 (93) 96 06/02/17 10:11 114 06/02/17 07:38 98.1 116 18 132/87 (102) 96 06/02/17 05:15 98.1 75 20 122/88 (99) 96 06/02/17 00:00 97.9 76 19 128/80 (96) 97 I/O 06/02/17 06/02/17 06/02/17 06/03/17 06/03/17 06/03/17 07:00 15:00 23:00 07:00 15:00 23:00 Intake Total 100 ml 660 ml Balance 100 ml 660 ml Intake Oral 100 ml 660 ml # Voids 4 1 3 # Bowel Movements 0 Result Diagram: 06/02/17 0615 06/02/17 0615 Objective Remarks GENERAL: patient lying in bed. Appears comfortable. Disoriented. SKIN: Warm and dry. HEAD: Normocephalic. EYES: No scleral icterus. No injection or drainage. NECK: Supple, trachea midline. No JVD. CARDIOVASCULAR: Regular rate and rhythm without murmurs, gallops, or rubs. RESPIRATORY: Breath sounds equal bilaterally. No accessory muscle use. GASTROINTESTINAL: Abdomen soft, non-tender, nondistended. MUSCULOSKELETAL: No cyanosis, or edema. BACK: Nontender without obvious deformity. No CVA tenderness. A/P Assessment and Plan ======06/02========= Hypernatremia. Sodium 147. Start one half normal saline. Recheck tomorrow. =- Intracranial hemorrhage/ Lung cancer metastatic to brain, new metastases to the right temporal lobe MRI shows right temporal metastasis. Neurosurgery consult appreciated. - Maintain SBP < 140. - HOB up. - follow up with neurosurgery. - Keppra for seizure prophylaxis. - No indication for Decadron at this time. - PT/ OT/ ST. No indication for surgical intervention at this point. Hypokalemia 05/25 potassium level still low at 3.3. Continue to replace orally and monitor BMP. RESOLVED Hypoglycemia Likely secondary to decreased by mouth intake. - D5 normal saline. - Add Ensure to meals. - Monitor BMP. IV fluids discontinued on 05/23. 05/25 no episodes of hypoglycemia. Poor oral intake As per RN the patient is not eating much. Consult dietitian. Start the patient on Megace. SEVERE DECONDITIONING-CONTINUE PT AND OT PPx: SCDs NEEDS PALLIATIVE CARE AND HOSPICE HELP CANNOT GO TO SNF FAMILY NOT HELPING MUCH YET Discharge Planning Patient is not a safe discharge due to weakness. 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 Will order PT for 7 days a week. Discharge Planning Patient is not a safe discharge due to weakness. 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 Will order PT for 7 days a week. Sonido Blancas MD Jun 02, 2017 23:46
[2017-06-03] VITALS (7 sets, daily range): BP systolic 119–132; BP diastolic 60–89; PULSE 97–110; RESP 17–20; TEMP 97.7–99.2; O2SAT 93–95
[2017-06-03] MEDS: CHLORHEXIDINE GLUCONATE 2 % 1 PACK (2 CLOTHS) TOP SCH (03:06)
[2017-06-03] MEDS: MEGESTROL ACETATE SUSP 400 MG/10 ML CUP PO SCH (08:23)
[2017-06-03] MEDS: FAMOTIDINE 20 MG/2 ML VIAL IV PUSH SCH ×2 (08:25→21:12)
[2017-06-03] MEDS: levETIRAcetam INJ 500 MG in SODIUM CHLORIDE 0.9% INJ 100 ML IV SCH ×2 (08:30→21:12)
[2017-06-03] MEDS: DOCUSATE SODIUM 50 MG/SENNA 8.6 MG TAB PO SCH ×2 (08:31→21:00)
[2017-06-03] MEDS: SODIUM CHLOR 0.45% 1000 ML INJ 1,000 ML IV SCH ×2 (11:46→21:17)
--- NOTE | 2017-06-03 17:48 | HHI.PR ---
Subjective Remarks patient seen around 1 PM. Wakes up for exam. Disorientated as before. Appears to deny pain Objective Vital Signs Date Time Temp Pulse Resp B/P (MAP) Pulse Ox O2 Delivery O2 Flow Rate FiO2 06/03/17 15:30 98.4 102 18 124/78 (93) 95 06/03/17 11:43 98.1 99 18 121/79 (93) 95 06/03/17 08:00 97 06/03/17 07:55 97.7 97 18 127/81 (96) 93 06/03/17 05:03 99.2 110 17 121/60 (80) 95 06/03/17 00:53 98.6 108 18 132/89 (103) 94 06/02/17 23:20 101 06/02/17 22:00 99.3 108 18 125/80 (95) 96 I/O 06/02/17 06/02/17 06/02/17 06/03/17 06/03/17 06/03/17 07:00 15:00 23:00 07:00 15:00 23:00 Intake Total 100 ml 660 ml 120 ml Balance 100 ml 660 ml 120 ml Intake Oral 100 ml 660 ml 120 ml # Voids 4 1 3 3 # Bowel Movements 0 1 Result Diagram: 06/02/17 0615 06/02/17 0615 Objective Remarks GENERAL: patient lying in bed. Appears comfortable. Disoriented.exam unchanged. SKIN: Warm and dry. HEAD: Normocephalic. EYES: No scleral icterus. No injection or drainage. NECK: Supple, trachea midline. No JVD. CARDIOVASCULAR: Regular rate and rhythm without murmurs, gallops, or rubs. RESPIRATORY: Breath sounds equal bilaterally. No accessory muscle use. GASTROINTESTINAL: Abdomen soft, non-tender, nondistended. MUSCULOSKELETAL: No cyanosis, or edema. BACK: Nontender without obvious deformity. No CVA tenderness. A/P Assessment and Plan ======06/03========= discussed with Matias family member over the phone. Family will be in around 3 PM tomorrow to sign hospice papers. Hypernatremia. 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 Neurosurgery consult appreciated. - Maintain SBP < 140. - HOB up. - follow up with neurosurgery. - Keppra for seizure prophylaxis. - No indication for Decadron at this time. - PT/ OT/ ST. No indication for surgical intervention at this point. Hypokalemia 05/25 potassium level still low at 3.3. Continue to replace orally and monitor BMP. RESOLVED Hypoglycemia Likely secondary to decreased by mouth intake. - D5 normal saline. - Add Ensure to meals. - Monitor BMP. IV fluids discontinued on 05/23. 05/25 no episodes of hypoglycemia. Poor oral intake As per RN the patient is not eating much. Consult dietitian. Start the patient on Megace. SEVERE DECONDITIONING-CONTINUE PT AND OT PPx: SCDs NEEDS PALLIATIVE CARE AND HOSPICE HELP CANNOT GO TO SNF FAMILY NOT HELPING MUCH YET Discharge Planning Patient is not a safe discharge due to weakness. 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 Will order PT for 7 days a week. Discharge Planning Patient is not a safe discharge due to weakness. 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 Will order PT for 7 days a week. =possibly discharge to hospice in the coming days. Sonido Blancas MD Jun 03, 2017 17:48
[2017-06-03 17:59] LABS: BASOPHIL # 0.1 TH/MM3 (0-0.2); BASOPHIL % 0.6 % (0.0-2.0); EOSINOPHIL # 0.2 TH/MM3 (0-0.4); EOSINOPHIL % 1.6 % (0.0-4.0); HEMATOCRIT 25.9 % (39.0-51.0); HEMOGLOBIN 8.5 GM/DL (13.0-17.0); LYMPH % 15.2 % (9.0-44.0); LYMPHOCYTE # 1.9 TH/MM3 (1.0-4.8); MEAN CELL VOLUME 104.4 FL (80.0-100.0); MEAN CORPUSCULAR HEMOGLOBIN 34.3 PG (27.0-34.0); MEAN CORPUSCULAR HGB CONC 32.8 % (32.0-36.0); MEAN PLATELET VOLUME 8.2 FL (7.0-11.0); MONO % 10.4 % (0.0-8.0); MONOCYTE # 1.3 TH/MM3 (0-0.9); NEUT % 72.2 % (16.0-70.0); PLATELET COUNT 73 TH/MM3 (150-450); RED BLOOD COUNT 2.48 MIL/MM3 (4.50-5.90); RED CELL DISTRIBUTION WIDTH 17.6 % (11.6-17.2); WHITE BLOOD COUNT 12.5 TH/MM3 (4.0-11.0)
[2017-06-03 18:31] LABS: ALBUMIN 2.5 GM/DL (3.4-5.0); BICARBONATE 25.6 MEQ/L (21.0-32.0); CALCIUM 9.5 MG/DL (8.5-10.1); CREATININE 0.7 MG/DL (0.60-1.30); PHOSPHORUS 3.6 MG/DL (2.5-4.9)
[2017-06-03 18:45] LABS: BANDS 15 % (0-6); CORRECTED NUCLEATED RBC 6 /100 WBC (0-0); LYMPHOCYTES 16 % (9-44); METAMYELOCYTES 1 % (0-1); MONOCYTES 6 % (0-8); MYELOCYTES 3 % (0-0); NEUTROPHIL # MANUAL DIFF 9.6 TH/MM3 (1.8-7.7); NUCLEATED RED BLOOD CELL 6 (0-0); POLYS (SEG NEUTROPHILS) 58 % (16-70)
[2017-06-03 18:47] LABS: TEARDROP RBCS 1+ (NORMAL)
[2017-06-03 18:48] LABS: TOXIC GRANULATION 1+ (NORMAL)
[2017-06-04] VITALS (8 sets, daily range): BP systolic 115–141; BP diastolic 68–81; PULSE 91–111; RESP 18–22; TEMP 97.4–100.2; O2SAT 92–96
[2017-06-04] MEDS: CHLORHEXIDINE GLUCONATE 2 % 1 PACK (2 CLOTHS) TOP SCH (03:36)
[2017-06-04] MEDS: FAMOTIDINE 20 MG/2 ML VIAL IV PUSH SCH ×2 (08:31→20:16)
[2017-06-04] MEDS: MEGESTROL ACETATE SUSP 400 MG/10 ML CUP PO SCH (08:32)
[2017-06-04] MEDS: levETIRAcetam INJ 500 MG in SODIUM CHLORIDE 0.9% INJ 100 ML IV SCH ×2 (08:32→20:16)
[2017-06-04] MEDS: DOCUSATE SODIUM 50 MG/SENNA 8.6 MG TAB PO SCH ×2 (08:32→20:26)
[2017-06-04] MEDS: SODIUM CHLOR 0.45% 1000 ML INJ 1,000 ML IV SCH ×2 (13:29→23:57)
--- NOTE | 2017-06-04 23:55 | HHI.PR ---
Subjective Remarks patient seen around 10:30 AM. No changes per nursing. Patient wakes up for exam. Speaks, however confused,only able to answer simple yes or no questions. Objective Vital Signs Date Time Temp Pulse Resp B/P (MAP) Pulse Ox O2 Delivery O2 Flow Rate FiO2 06/04/17 23:47 99.9 95 18 125/76 (92) 95 06/04/17 20:22 100.2 91 19 129/81 (97) 94 06/04/17 15:58 97.9 96 20 115/74 (88) 94 06/04/17 11:37 98.1 97 20 117/69 (85) 92 06/04/17 07:26 97.4 101 19 141/68 (92) 94 06/04/17 06:39 97.9 111 22 126/79 (95) 92 06/04/17 03:34 97 06/04/17 03:34 94 06/04/17 01:05 98.9 97 18 128/75 (92) 96 I/O 06/04/17 06/04/17 06/04/17 06/05/17 06/05/17 06/05/17 06:59 14:59 22:59 06:59 14:59 22:59 Intake Total 180 ml Balance 180 ml Intake Oral 180 ml # Voids 2 3 # Bowel Movements 1 Result Diagram: 06/03/17174406/03/171744 Objective Remarks GENERAL: patient lying in bed. Appears comfortable. Disoriented.examagain unchanged. SKIN: Warm and dry. HEAD: Normocephalic. EYES: No scleral icterus. No injection or drainage. NECK: Supple, trachea midline. No JVD. CARDIOVASCULAR: Regular rate and rhythm without murmurs, gallops, or rubs. RESPIRATORY: Breath sounds equal bilaterally. No accessory muscle use. GASTROINTESTINAL: Abdomen soft, non-tender, nondistended. MUSCULOSKELETAL: No cyanosis, or edema. BACK: Nontender without obvious deformity. No CVA tenderness. A/P Assessment and Plan 06/04. Meeting between hospice and [facility] today. Discussed with case management and nursing. ======06/03========= discussed with Matias family member over the phone. Family will be in around 3 PM tomorrow to sign hospice papers. Hypernatremia. 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 Neurosurgery consult appreciated. - Maintain SBP < 140. - HOB up. - follow up with neurosurgery. - Keppra for seizure prophylaxis. - No indication for Decadron at this time. - PT/ OT/ ST. No indication for surgical intervention at this point. Hypokalemia 05/25 potassium level still low at 3.3. Continue to replace orally and monitor BMP. RESOLVED Hypoglycemia Likely secondary to decreased by mouth intake. - D5 normal saline. - Add Ensure to meals. - Monitor BMP. IV fluids discontinued on 05/23. 05/25 no episodes of hypoglycemia. Poor oral intake As per RN the patient is not eating much. Consult dietitian. Start the patient on Megace. SEVERE DECONDITIONING-CONTINUE PT AND OT PPx: SCDs NEEDS PALLIATIVE CARE AND HOSPICE HELP CANNOT GO TO SNF FAMILY NOT HELPING MUCH YET Discharge Planning Patient is not a safe discharge due to weakness. The patient cannot be discharged to a rehab facility given that he HAS ANKLE MONITOR FOR GPS ON DUE TO SEX OFFENDER HISTORY-- Discussed with child support case officer. Will order PT for 7 days a week. Discharge Planning Patient is not a safe discharge due to weakness. The patient cannot be discharged to a rehab facility given that he HAS ANKLE MONITOR FOR GPS ON DUE TO SEX OFFENDER HISTORY-- Discussed with child support case officer again. Will order PT for 7 days a week. =possibly discharge to hospice in the coming days. Sonido Blancas MD Jun 04, 2017 23:55
[2017-06-05] VITALS (7 sets, daily range): BP systolic 108–123; BP diastolic 69–80; PULSE 78–102; RESP 17–18; TEMP 97.5–98.7; O2SAT 93–99
[2017-06-05] MEDS: CHLORHEXIDINE GLUCONATE 2 % 1 PACK (2 CLOTHS) TOP SCH (03:18)
[2017-06-05] MEDS: levETIRAcetam INJ 500 MG in SODIUM CHLORIDE 0.9% INJ 100 ML IV SCH ×2 (08:37→20:13)
[2017-06-05] MEDS: MEGESTROL ACETATE SUSP 400 MG/10 ML CUP PO SCH (08:37)
[2017-06-05] MEDS: FAMOTIDINE 20 MG/2 ML VIAL IV PUSH SCH ×2 (08:37→20:13)
[2017-06-05] MEDS: DOCUSATE SODIUM 50 MG/SENNA 8.6 MG TAB PO SCH ×2 (08:37→20:13)
[2017-06-05] MEDS: SODIUM CHLOR 0.45% 1000 ML INJ 1,000 ML IV SCH (11:26)
--- NOTE | 2017-06-05 15:26 | HHI.PR ---
Subjective Remarks patient seen around 10 AM. Wakes up for exam. Appears to deny pain. Objective Vital Signs Date Time Temp Pulse Resp B/P (MAP) Pulse Ox O2 Delivery O2 Flow Rate FiO2 06/05/17 12:00 97.6 98 18 114/80 (91) 94 06/05/17 08:44 101 06/05/17 08:00 97.5 101 18 121/77 (92) 93 06/05/17 05:21 98.1 102 18 122/74 (90) 99 06/05/17 04:59 93 06/04/17 23:47 99.9 95 18 125/76 (92) 95 06/04/17 20:22 100.2 91 19 129/81 (97) 94 06/04/17 15:58 97.9 96 20 115/74 (88) 94 I/O 06/04/17 06/04/17 06/04/17 06/05/17 06/05/17 06/05/17 07:00 15:00 23:00 07:00 15:00 23:00 Intake Total 180 ml 850 ml Balance 180 ml 850 ml Intake Oral 180 ml IV Total 850 ml # Voids 2 3 3 # Bowel Movements 1 Result Diagram: 06/03/17 1745 06/03/17 1745 Objective Remarks GENERAL: patient lying in bed. Appears comfortable. Disoriented.exam unchanged. SKIN: Warm and dry. HEAD: Normocephalic. EYES: No scleral icterus. No injection or drainage. NECK: Supple, trachea midline. No JVD. CARDIOVASCULAR: Regular rate and rhythm without murmurs, gallops, or rubs. RESPIRATORY: Breath sounds equal bilaterally. No accessory muscle use. GASTROINTESTINAL: Abdomen soft, non-tender, nondistended. MUSCULOSKELETAL: No cyanosis, or edema. BACK: Nontender without obvious deformity. No CVA tenderness. A/P Assessment and Plan 06/05. Meeting between hospice and family at 4 PM today. 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 Neurosurgery consult appreciated. - Maintain SBP < 140. - HOB up. - follow up with neurosurgery. - Keppra for seizure prophylaxis. - No indication for Decadron at this time. - PT/ OT/ ST. No indication for surgical intervention at this point. Hypokalemia 05/25 potassium level still low at 3.3. Continue to replace orally and monitor BMP. RESOLVED Hypoglycemia Likely secondary to decreased by mouth intake. - D5 normal saline. - Add Ensure to meals. - Monitor BMP. IV fluids discontinued on 05/23. 05/25 no episodes of hypoglycemia. Poor oral intake As per RN the patient is not eating much. Consult dietitian. Start the patient on Megace. SEVERE DECONDITIONING-CONTINUE PT AND OT PPx: SCDs NEEDS PALLIATIVE CARE AND HOSPICE HELP CANNOT GO TO SNF FAMILY NOT HELPING MUCH YET Discharge Planning Patient is not a safe discharge due to weakness. The patient cannot be discharged to a rehab facility given that he HAS ANKLE MONITOR FOR GPS ON DUE TO SEX OFFENDER HISTORY-- Discussed with dependency case manager. Will order PT for 7 days a week. Discharge Planning Patient is not a safe discharge due to weakness. The patient cannot be discharged to a rehab facility given that he HAS ANKLE MONITOR FOR GPS ON DUE TO SEX OFFENDER HISTORY-- Discussed with dependency case manager again. Will order PT for 7 days a week. =possibly discharge to hospice in the coming days. Sonido Blancas MD Jun 05, 2017 15:26
[2017-06-05] MEDS ORDERED: DEXT 5%-NACL 0.45% 1000 ML INJ 1,000 ML IV SCH (15:30)
[2017-06-05] MEDS: MORPHINE SULFATE 2 MG/ML INJ IV PUSH PRN (17:19)
--- NOTE | 2017-06-05 18:07 | HHI.DS ---
Discharge Summary Admission Date May 20, 2017 at 06:25 Discharge Date: Jun 05, 2017 Admitting Diagnosis Brain mets, hemorrhage (1) Lung cancer metastatic to brain ICD Code: C34.90 - Malignant neoplasm of unspecified part of unspecified bronchus or lung; C79.31 - Secondary malignant neoplasm of brain (2) ICH (intracerebral hemorrhage) ICD Code: I61.9 - Nontraumatic intracerebral hemorrhage, unspecified (3) Hypokalemia ICD Code: E87.6 - Hypokalemia Procedures None Brief History - From Admission 56 y/o right handed man s/p resection left temporal lobe metastatic brain lesion from right upper lobe primary in January 2017. Presents to [facility] for urgent evaluation. New brain met right side with surrounding hemorrhage by report. Patient is on xarelto. No seizures. Transferred to [facility] where I have met him on his arrival to the [facility]. CBC/BMP: 06/03/17 1745 06/03/17 1745 Significant Findings Laboratory Tests Test 06/03/17 17:45 White Blood Count 12.5 TH/MM3 (4.0-11.0) Red Blood Count 2.48 MIL/MM3 (4.50-5.90) Hemoglobin 8.5 GM/DL (13.0-17.0) Hematocrit 25.9 % (39.0-51.0) Mean Corpuscular Volume 104.4 FL (80.0-100.0) Mean Corpuscular Hemoglobin 34.3 PG (27.0-34.0) Red Cell Distribution Width 17.6 % (11.6-17.2) Platelet Count 73 TH/MM3 (150-450) Neutrophils (%) (Auto) 72.2 % (16.0-70.0) Monocytes (%) (Auto) 10.4 % (0.0-8.0) Neutrophils # (Auto) 9.0 TH/MM3 (1.8-7.7) Monocytes # (Auto) 1.3 TH/MM3 (0-0.9) Band Neutrophils % 15 % (0-6) Neutrophils # (Manual) 9.6 TH/MM3 (1.8-7.7) Myelocytes 3 % (0-0) Nucleated Red Blood Cells 6 /100 WBC (0-0) Toxic Granulation 1+ (NORMAL) Platelet Estimate LOW (NORMAL) Tear Drop Cells 1+ (NORMAL) Blood Urea Nitrogen 24 MG/DL (7-18) Albumin 2.5 GM/DL (3.4-5.0) Sodium Level 146 MEQ/L (136-145) Chloride Level 111 MEQ/L (98-107) Imaging Last Impressions Head CT 05/20/17 0000 Signed Impressions: Service Date/Time: Saturday, May 20, 2017 09:29 - CONCLUSION: Left temporal encephalomalacia defect with significant fluid herniating out of the craniotomy defect. No evidence of acute hemorrhage or acute process. Rick Rojas MD Brain MRI 05/20/17 0000 Signed Impressions: Service Date/Time: Saturday, May 20, 2017 16:57 - CONCLUSION: Enhancing lesion in the right temporal region and postoperative changes left temporal lobe with mild peripheral enhancement seen. Bret Rawls MD PE at Discharge Gen: Appears comfortable not in any acute distress, patient is confused-- quite aphasic at this time- MUMBLES Head: Atraumatic. PERRLA EOMI TONGUE MIDLINE Neck: Supple, airway widely patent. Lungs: Clear to auscultation bilaterally. Heart: RRR, No JVD.S1, S2 NO S3 OR S4 Abdomen: Soft, no guarding. No tenderness. Extremities: Warm, well perfused. No clubbing or cyanosis or edema has right lower extremity police monitor in place Neuro: Moves 4 limbs to command. Hand grasps 5/5 on left upper extremity, strength 4/5 on right upper and lower extremity. EOMIs intact. Speech NOT clear but difficulty finding words. Awake and alert oriented to person only. Psych: Mood and affect INappropriate. Hospital Course Patient found to have temporal metastasis on MRI as above. Keppra was added for seizure prophylaxis. Neurosurgery consulted, no indication for surgical intervention. EEG negative for epileptiform activity. Patient with poor oral intake, slurred speech, difficulty communicating. Her family discussion with hospice, patient was discharged to hospice care center. For problem-based summary from most recent progress note, please see below. 06/05. Meeting between hospice and family at 4 PM today. 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 Neurosurgery consult appreciated. - Maintain SBP < 140. - HOB up. - follow up with neurosurgery. - Keppra for seizure prophylaxis. - No indication for Decadron at this time. - PT/ OT/ ST. No indication for surgical intervention at this point. Hypokalemia 05/25 potassium level still low at 3.3. Continue to replace orally and monitor BMP. RESOLVED Hypoglycemia Likely secondary to decreased by mouth intake. - D5 normal saline. - Add Ensure to meals. - Monitor BMP. IV fluids discontinued on 05/23. 05/25 no episodes of hypoglycemia. Poor oral intake As per RN the patient is not eating much. Consult dietitian. Start the patient on Megace. SEVERE DECONDITIONING-CONTINUE PT AND OT PPx: SCDs NEEDS PALLIATIVE CARE AND HOSPICE HELP CANNOT GO TO SNF FAMILY NOT HELPING MUCH YET Discharge Planning Patient is not a safe discharge due to weakness. The patient cannot be discharged to a rehab facility given that he HAS ANKLE MONITOR FOR GPS ON DUE TO SEX OFFENDER HISTORY-- Discussed with family independence case manager. Will order PT for 7 days a week. Discharge Planning Patient is not a safe discharge due to weakness. The patient cannot be discharged to a rehab facility given that he HAS ANKLE MONITOR FOR GPS ON DUE TO SEX OFFENDER HISTORY-- Discussed with family independence case manager again. Will order PT for 7 days a week. =possibly discharge to hospice in the coming days. Pt Condition on Discharge: Good Discharge Disposition: Hospice/Med Facility Discharge Time: > 30 minutes Discharge Instructions DIET: Follow Instructions for: As Tolerated, No Restrictions Speech Therapy-Diet Recommends: Mechanical Soft Activities you can perform: Regular-No Restrictions Sonido Blancas MD Jun 05, 2017 18:07
== END 2017-06-05 21:35 | disposition hospice, inpatient (51) | DRG 101 ==
LOC: N03B 06:25 → N05A 05-21 16:49
PROVIDERS: ADMIT Hospitalist; ATTEND Hospitalist
DX: R56.9 Unspecified convulsions (principal); C79.31 Secondary malignant neoplasm of brain; D69.6 Thrombocytopenia, unspecified; C34.90 Malignant neoplasm of unspecified part of unspecified bronchus or lung; G93.89 Other specified disorders of brain; E87.0 Hyperosmolality and hypernatremia; D64.9 Anemia, unspecified; R47.01 Aphasia; Z86.711 Personal history of pulmonary embolism; Z79.02 Long term (current) use of antithrombotics/antiplatelets; E87.6 Hypokalemia; E16.2 Hypoglycemia, unspecified; H91.90 Unspecified hearing loss, unspecified ear; Z51.5 Encounter for palliative care; Z92.3 Personal history of irradiation
CPT/HCPCS: 70450; 70553; 76937; 80048; 80053; 80069; 82948; 83036; 83735; 84100; 84132; 84439; 84443; 85007; 85027; 95819; A9579; J1953; J2270; J3475; J3480; J7030; J7042